=== PATIENT | female | born 1935 | race African-American/Black ===

== ENCOUNTER 2017-05-17 12:00 | Inpatient (IN) | payer OTHER ==
--- NOTE | 2017-05-17 12:07 | PDOC ---
Attending Attestation - HPI HPI: 05/17/17 13:36 The patient is an 82-year-old female, living alone, with a significant past medical history of HTN, hypercholesterolemia, MD (2006), cancer (left breast, 2005), who presents to the ED via EMS for shortness of breath today. As per EMS , the patient was found laid out on her kitchen table, struggling to breath, and grunting. She was noted to be tachypneic, wheezing, and hypertensive at 180/ 90. The patient was given combivent, placed on Bipap, and given 10 of IV dex. On exam, the patient is complaining of increased urination and suprapubic pain. She also reports having a cough productive of phlegm. The patient has been sleeping on more pillows than usual (2) and has noted some right ankle swelling. The patient denies any fever, chills, nausea, vomiting, diarrhea, or abdominal pain. Allergies: NKDA Social History: Current everyday smoker Surgical History: Cholecystectomy PCP: Dr. Osmel Smith - Physicial Exam PE: 05/17/17 13:37 GENERAL: Awake, alert, and fully oriented, in no acute distress HEAD: No signs of trauma EYES: PERRLA, EOMI, sclera anicteric, conjunctiva clear ENT: Auricles normal inspection, hearing grossly normal, nares patent, oropharynx clear without exudates. Moist mucosa NECK: Normal ROM, supple, no lymphadenopathy, JVD, or masses LUNGS: Breath sounds equal, clear to auscultation bilaterally. No wheezes, and no crackles HEART: Regular rate and rhythm, normal S1 and S2, no murmurs, rubs or gallops ABDOMEN: Soft, nontender, normoactive bowel sounds. No guarding, no rebound. No masses EXTREMITIES: Normal range of motion, no edema. No clubbing or cyanosis. No cords, erythema, or tenderness - Medical Decision Making 05/17/17 13:40 Dr. Ortega was paged and notified via phone service. Dr. Osmel Smith was paged at 13:41, awaiting call back. 05/17/17 13:55 Chest X-Ray was reviewed by Dr. Verma and over-read by Radiology. Impression: Since the prior study of study of 01/06/2014, there are skin fold artifacts on the right, prominent mediastinum and some increased markings in the right perihilar area, right base and left lower lung field.. Follow-up recommended. 05/17/17 14:00 Dr. Osmel Smith called back, but Dr. Verma was busy with another patient, so he agreed to call back. 05/17/17 14:45 Dr. Osmel Smith was paged a second time to discuss the case. <Samia Redman - Last Filed: 05/17/17 14:46> - Resident Resident Name: Ruy Payton - ED Attending Attestation I have performed the following: I have examined & evaluated the patient, The case was reviewed & discussed with the resident, I agree w/resident's findings & plan, Exceptions are as noted - Critical Care Time Total Critical Care Time: 30 Critical Care Statement: The care of this patient involved high complexity decision making to prevent further life threatening deterioration of the patient 's condition and/or to evaluate & treat vital organ system(s) failure or risk of failure. - Medical Decision Making 05/17/17 12:06 I, Dr. Kenisha Verma, DO, attest that this document has been prepared under my direction and personally reviewed by me in its entirety. I further attest, that it accurately reflects all work, treatment, procedures and medical decision -making performed by me. 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 Smith - accepts pt to service 05/17/17 15:[address] Ortega - will see patient in consult <Kenisha Verma - Last Filed: 05/17/17 15:22> Discharge Disposition <Samia Redman - Last Filed: 05/17/17 14:46> - Discharge Dispostion Last Admission D/C Date: 04/02/13 Admit: Yes <Kenisha Verma - Last Filed: 05/17/17 15:22> - Diagnosis Hypercapnic respiratory failure - Discharge Dispostion Condition at time of disposition: Fair Heart Score/ECG Review - ECG Intrepretation Comment:: 05/17/17 12:37 sinus at 62, nl axis, nl interval, poor r wave progression, q waves anteriorly that are age indeterminate, t wave inversions v6, I, avl <Kenisha Verma - Last Filed: 05/17/17 15:22>
[2017-05-17] MEDS ORDERED: ALBUTEROL SO4 2.5/IPRATROPIUM 0.5 INH SOL 3 ML VIAL.NEB. NEB ONE ×3 (12:24→13:42)
[2017-05-17] MEDS ORDERED: DEXAMETHASONE SOD PHOSPHATE 10 MG/1 ML VIAL ONE (12:25)
--- NOTE | 2017-05-17 12:25 | PDOC ---
History of Present Illness - General Stated Complaint: DIFFICULTY BREATHING Time Seen by Provider: 05/17/17 12:05 - History of Present Illness Initial Comments: 05/17/17 12:12 82 yo F with h/o HTN, PVD s/p left leg amputation BTK, COPD, BIBA with SOB. Per EMS pt. hypoxic on RA 83%, on BIPAP, and received Combivent x 2, and Dexmathesone 10 mg. Per pt. she developed non productive cough yesterday and reports SOB, Luna, and wheezing this AM with home duoneb use. Denies N/V, F/C, CP , hemoptysis, palpitations, orthopnea, abdominal pain, diarrhea, constipation, urinary complaints, lightheadedness, weakness, sensory changes. Tobacco use 40 + years. Denies h/o CHF, AR, stent placement, CABG. Past History - Past Medical History Allergies/Adverse Reactions: Allergies Allergy/AdvReac Type Severity Reaction Status Date / Time No Known Drug Allergies Allergy Verified 06/11/14 19:48 Home Medications: Ambulatory Orders Amlodipine Besylate [Norvasc -] 10 mg PO DAILY 05/17/17 Aspirin [Ecotrin] 81 mg PO DAILY 05/17/17 Atorvastatin Ca [Lipitor] 10 mg PO HS 05/17/17 Bupropion HCl [Wellbutrin Xl -] 150 mg PO DAILY 05/17/17 Carvedilol [Coreg] 6.25 mg PO DAILY 05/17/17 Clopidogrel Bisulfate [Plavix] 75 mg PO DAILY 05/17/17 Gabapentin [Neurontin] 400 mg PO TID 05/17/17 Isosorbide Mononitrate [Imdur] 60 mg PO DAILY 05/17/17 Oxycodone HCl/Acetaminophen [Percocet 5-325 mg Tablet] 1 tab PO Q6H PRN Pantoprazole Sodium [Protonix] 40 mg PO DAILY 05/17/17 Anemia: No Asthma: No Cancer: Yes (2006 BREAST LEFT) Cardiac Disorders: Yes (AR IN 2005) CVA: No COPD: No CHF: No Dementia: No Diabetes: No GI Disorders: Yes (GALL STONES REMOVED) Disorders: No HTN: Yes Hypercholesterolemia: Yes Liver Disease: No Seizures: No Thyroid Disease: No - Surgical History Abdominal Surgery: Yes Appendectomy: No Cardiac Surgery: No Cholecystectomy: Yes Lung Surgery: No Neurologic Surgery: No Orthopedic Surgery: No - Suicide/Smoking/Psychosocial Hx Smoking History: Never smoked Have you smoked in the past 12 months: No Hx Alcohol Use: No Drug/Substance Use Hx: No Substance Use Type: None Hx Substance Use Treatment: No Review of Systems - Review of Systems Comments:: 05/17/17 12:37 GENERAL/CONSTITUTIONAL: No fever or chills. No weakness. HEAD, EYES, EARS, NOSE AND THROAT: No change in vision. No ear pain or discharge. No sore throat. CARDIOVASCULAR: No chest pain or shortness of breath RESPIRATORY: + SOB, cough, and wheezing. No hemoptysis. GASTROINTESTINAL: No nausea, vomiting, diarrhea or constipation. GENITOURINARY: No dysuria, frequency, or change in urination. MUSCULOSKELETAL: No joint or muscle swelling or pain. No neck or back pain. SKIN: No rash NEUROLOGIC: No headache, vertigo, loss of consciousness, or change in strength/ sensation. ENDOCRINE: No increased thirst. No abnormal weight change HEMATOLOGIC/LYMPHATIC: No anemia, easy bleeding, or history of blood clots. ALLERGIC/IMMUNOLOGIC: No hives or skin allergy. *Physical Exam - Physical Exam Comments: 05/17/17 12:38 GENERAL: Awake, alert, and fully oriented, in no acute distress HEAD: No signs of trauma, normocephalic, atraumatic EYES: PERRLA, EOMI, sclera anicteric, conjunctiva clear ENT: Hearing grossly normal, nares patent, oropharynx clear without exudates. Moist mucosa NECK: Normal ROM, supple, no lymphadenopathy, JVD, or masses LUNGS: Diminished breath sounds. No distress, speaks full sentences. Absent rhonci and rales. HEART: Regular rate and rhythm, normal S1 and S2, no murmurs, rubs or gallops, peripheral pulses normal and equal bilaterally. EXTREMITIES : LLE BTK amputation. Normal inspection, Normal range of motion, no edema. No clubbing or cyanosis. SKIN: Warm, Dry, normal turgor, no rashes or lesions noted ED Treatment Course - LABORATORY CBC & Chemistry Diagram: 05/17/17 12:30 05/17/17 12:30 - RADIOLOGY Radiology Studies Ordered: Category Date Time Status CXRPORT [CHEST X-RAY PORTABLE*] [RAD] Stat Radiology 05/17/17 12:07 Ordered Medical Decision Making - Medical Decision Making 05/17/17 12:40 82 yo F with h/o HTN, PVD s/p left leg amputation BTK, COPD, BIBA with SOB, hypoxic on RA 83%, on BIPAP, and received Combivent x 2, and Dexmathesone 10 mg. Endorses non productive cough yesterday and reports SOB, Luna, and wheezing this AM with home duoneb use. Denies N/V, F/C, CP, hemoptysis, palpitations, orthopnea, abdominal pain, diarrhea, constipation, urinary complaints, lightheadedness, weakness, sensory changes. Physical exam with diminshed BL breath sounds. 100 % O2 Bipap. Differential includes COPD exacerbation vs. PNA. Although pt. with no clinical s/s of fluid overload/congestion, or heart failure , will consider CHF exacerbation. ACS/AR r/o. ED Course: CBC, CMP, Cardiac Pr, Lactic Acid, ABG, BNP, Mg, Lactic acid UA Urine Cx. Blood Cx. 05/17/17 12:44 EKG: NSR with absent [place], STD. Normal interval duration and axis. 05/17/17 13:28 Trop: Neg BNP: [id number] 05/17/17 13:30 CBC: Unremarkable Lactic acid: Neg Pt. admitted to ICU 05/17/17 15:22 Dr. Osmel Smith agrees to admission to ICU. 05/17/17 15:23 Dr. Vazquez consulted. *DC/Admit/Observation/Transfer Diagnosis at time of Disposition: Hypercapnic respiratory failure - Discharge Dispostion Condition at time of disposition: Fair - Referrals - Patient Instructions - Post Discharge Activity
[2017-05-17 12:53] LABS: INR 1.03 (0.82-1.09); PROTHROMBIN TIME (PATIENT) 11.6 SEC (9.98-11.88)
[2017-05-17 13:09] LABS: ALBUMIN 3.7 g/dl (3.4-5.0); ANION GAP 5 (8-16); BILIRUBIN,TOTAL 0.2 mg/dL (0.2-1.0); BLOOD UREA NITROGEN 21 mg/dL (7-18); CALCIUM 9.5 mg/dL (8.5-10.1); CHLORIDE 103 mmol/L (98-107); CO2 29 mmol/L (21-32); CREATININE 0.9 mg/dL (0.55-1.02); GLUCOSE,RANDOM 122 mg/dL (74-106); POTASSIUM 4.4 mmol/L (3.5-5.1); SGOT/AST 28 U/L (15-37); SGPT/ALT 19 U/L (12-78); SODIUM 137 mmol/L (136-145); TOT PROT 8.2 g/dl (6.4-8.2)
[2017-05-17 13:12] LABS: ALK PHOS 122 U/L (45-117); N-TERMINAL BNP 4258.93 pg/ml (5-450)
[2017-05-17 13:18] LABS: BASO % 0.3 % (0-2.0); HEMATOCRIT 39.3 % (32.4-45.2); HEMOGLOBIN 12.9 GM/dL (10.7-15.3); LYMPH % 7.2 % (8-40); MCH 27.1 pg (25.7-33.7); MCHC 32.8 g/dl (32.0-36.0); MEAN CELL VOLUME 82.6 fl (80-96); MEAN PLT VOLUME 10.5 fl (7.5-11.1); MONO % 4.1 % (3.8-10.2); NEUT % 88.4 % (42.8-82.8); PLATELET COUNT 140 K/MM3 (134-434); RBC 4.76 M/mm3 (3.60-5.2); RDW 15.1 % (11.6-15.6); WHITE BLOOD COUNT 8.2 K/mm3 (4.0-10.0)
[2017-05-17 13:21] LABS: CARBOXYHEMOGLOBIN 2.4 gm% (0.5-2.0)
[2017-05-17 13:28] LABS: ARTERIAL BLOOD GAS pH 7.26 (7.35-7.45)
[2017-05-17 13:29] LABS: ALLENS TEST POSITIVE; ARTERIAL BLOOD GAS BASE EXCESS 1.9 meq/l (-2-2); ARTERIAL BLOOD GAS PCO2 69.1 mmHg (35-45)
[2017-05-17] MEDS ORDERED: ALBUTEROL SO4 0.083% IH SOL 2.5 MG/3 ML VIAL.NEB. NEB ONE ×2 (13:31→13:42)
[2017-05-17] MEDS ORDERED: ASPIRIN 81 MG CHEWABLE TABLETS PO ONE (13:31)
[2017-05-17] MEDS ORDERED: SODIUM CHLORIDE 0.9% 1000 ML INFUS.BAG IV ONE (13:31)
[2017-05-17] MEDS ORDERED: AZITHROMYCIN IVPB 500 MG in DEXTROSE 5%-WATER - 250 ML IVPB ONE (13:31)
[2017-05-17] MEDS ORDERED: AZITHROMYCIN IVPB 250 ML IVPB ONE (13:42)
[2017-05-17] MEDS ORDERED: ASPIRIN 81 MG CHEWABLE TABLETS ONE (13:42)
[2017-05-17] MEDS ORDERED: methylPREDNISolone NA SUCC 125 MG/2 ML VIAL IVPUSH ONE (15:21)
[2017-05-17] MEDS ORDERED: methylPREDNISolone NA SUCC 125 MG/2 ML VIAL ONE (16:04)
--- NOTE | 2017-05-17 16:32 | PN ---
Progress Note, Physician Chief Complaint: Cough SOB History of Present Illness: Pt - Objective Vital Signs: Vital Signs Temperature 98.0 F 05/17/17 13:50 Pulse Rate 60 05/17/17 13:50 Respiratory Rate 19 05/17/17 13:50 Blood Pressure 148/82 05/17/17 13:50 O2 Sat by Pulse Oximetry (%) 100 05/17/17 13:50 Labs: CBC, BMP 05/17/17 12:30 05/17/17 12:30 INR, PTT INR 1.03 (0.82-1.09) 05/17/17 12:30
--- NOTE | 2017-05-17 16:41 | HP ---
Admitting History and Physical - Primary Care Physician PCP: Osmel Smith - Admission Chief Complaint: Cough. SOB History of Present Illness: Pt states that for the last 2 days developed dry cough associated with SOB and wheezing. Per ER doctor at presentation in ER her O2 sat in low 80's. Pt also c/o lower abd pain for 1-2 days. Pt w/o fever, chills, diarrhea. History Source: Patient Limitations to Obtaining History: No Limitations - Past Medical History Cardiovascular: Yes: CAD, HTN, Hyperlipdemia Pulmonary: Yes: COPD (probable; pt smoked for very long time) Gastrointestinal: Yes: GERD (Personal Hx of tobacoo use) Heme/Onc: Yes: Cancer (Left Breast), Thrombocytopenia Additional Past Medical History: PVD - Past Surgical History Additional Past Surgical History: Hx/o left Fem- Pop bypass Left AKA - Smoking History Smoking history: Former smoker Have you smoked in the past 12 months: No - Alcohol/Substance Use Hx Alcohol Use: No Home Medications - Allergies Allergies/Adverse Reactions: Allergies Allergy/AdvReac Type Severity Reaction Status Date / Time No Known Drug Allergies Allergy Verified 06/11/14 19:48 - Home Medications Home Medications: Ambulatory Orders Amlodipine Besylate [Norvasc -] 10 mg PO DAILY 05/17/17 Aspirin [Ecotrin] 81 mg PO DAILY 05/17/17 Atorvastatin Ca [Lipitor] 10 mg PO HS 05/17/17 Bupropion HCl [Wellbutrin Xl -] 150 mg PO DAILY 05/17/17 Carvedilol [Coreg] 6.25 mg PO DAILY 05/17/17 Clopidogrel Bisulfate [Plavix] 75 mg PO DAILY 05/17/17 Gabapentin [Neurontin] 400 mg PO TID 05/17/17 Isosorbide Mononitrate [Imdur] 60 mg PO DAILY 05/17/17 Oxycodone HCl/Acetaminophen [Percocet 5-325 mg Tablet] 1 tab PO Q6H PRN Pantoprazole Sodium [Protonix] 40 mg PO DAILY 05/17/17 Review of Systems - Review of Systems Constitutional: denies: Chills, Fever Eyes: denies: Blurred Vision, Double Vision HENT: reports: Other (no nasal discharge). denies: Difficult Swallowing, Ear Discharge, Ear Pain, Epistaxis, Nasal Congestion, Throat Pain Neck: denies: Stiffness, Tenderness Cardiovascular: denies: Chest Pain, Edema, Palpitations Respiratory: reports: Cough, SOB, Wheezing Gastrointestinal: reports: Abdominal Pain. denies: Constipation, Diarrhea, Nausea, Vomiting Genitourinary: denies: Burning, Frequency Musculoskeletal: denies: Back Pain, Extremity Pain Integumentary: denies: Blister, Eczema, Rash Neurological: denies: Change in LOC, Change in Speech, Confusion, Numbness Endocrine: denies: Excessive Sweating, Intolerance to Cold Hematology/Lymphatic: denies: Easily Bruised, Excessive Bleeding Psychiatric: denies: Anxiety, Depression Physical Examination Vital Signs: Vital Signs Temperature 98.0 F 05/17/17 13:50 Pulse Rate 60 05/17/17 13:50 Respiratory Rate 19 05/17/17 13:50 Blood Pressure 148/82 05/17/17 13:50 O2 Sat by Pulse Oximetry (%) 100 05/17/17 13:50 Findings/Remarks: pt on BIPA Constitutional: Yes: Calm, Cachectic. No: Anxious Eyes: Yes: Conjunctiva Clear, EOM Intact. No: Tearing HENT: Yes: Normocephalic. No: Rhinnorhea Neck: Yes: Trachea Midline. No: Lymphadenopathy Cardiovascular: Yes: Regular Rate and Rhythm, S1, S2 Respiratory: Yes: Regular, Rales, Rhonchi (bilat), Wheezes (bilat, inspiratory and expiratory) Gastrointestinal: Yes: Normal Bowel Sounds, Soft. No: Tenderness ...Rectal Exam: Yes: Deferred Renal/: No: CVA Tenderness - Left, CVA Tenderness - Right Breast(s): Yes: Other (deferred) Extremities: Yes: Amputation (left AKA) Edema: No (or the right leg) Integumentary: No: Bruising, Rash Neurological: Yes: Alert, Oriented Labs: CBC, BMP 05/17/17 12:30 05/17/17 12:30 Imaging - Results Chest X-ray: Report Reviewed Problem List - Problems (1) Acute respiratory failure with hypoxia and hypercapnia Code(s): J96.01 - ACUTE RESPIRATORY FAILURE WITH HYPOXIA; J96.02 - ACUTE RESPIRATORY FAILURE WITH HYPERCAPNIA (2) CAD (coronary artery disease) Code(s): I25.10 - ATHSCL HEART DISEASE OF [place] CORONARY ARTERY W/O ANG PCTRS Qualifiers: Coronary Disease-Associated Artery/Lesion type: [place] artery [place] vs. transplanted heart: [place] heart Associated angina: without angina Qualified Code(s): I25.10 - Atherosclerotic heart disease of [place] coronary artery without angina pectoris (3) PVD (peripheral vascular disease) Code(s): I73.9 - PERIPHERAL VASCULAR DISEASE, UNSPECIFIED (4) History of left above knee amputation Code(s): Z89.612 - ACQUIRED ABSENCE OF LEFT LEG ABOVE KNEE Assessment/Plan BIPAP IV steroids Pulmonary consult Serial CE Cardio consult GI Prophylaxis DVT Prophylaxis Nicotine replacemnet therapy UA/ UCX is pending, pt is refusing straight cath. Case was d/w pt's nurse ( at bedside); pt doen't remembers any home medications. I updated the medication list per my office records Admit to Monitor bed, ICU if possible. Time spent for managing pt's care: over 90 minutes
--- NOTE | 2017-05-17 17:01 | CONSULT ---
Consult Consult Specialty:: PULMONARY/CCM Referred by:: Dr. Verma Reason for Consultation:: respiratory failure - History of Present Illness Chief Complaint: shortness of breath History of Present Illness: 82yo female with h/o HTN, hypercholesterolemia, CAD, PAD, h/o breast ca who was admitted with worsening shortness of breath. Pt currently somnolent but arousable on BiPAP, difficult to obtain history at this time but she does report a cough and wheezing. NO chest pain or palpitations. No fevers, chills or sweats. No sick contacts, lives with her son. Does not use oxygen at home but is on inhalers. She is a former long time smoker. Noted to be tachypneic, wheezing and ABG showing acute on chronic respiratory acidosis, placed on BiPAP support. Does not take vaccines. Last CT chest was in 2015 which showed bilateral lung nodules. - History Source History Provided By: Patient, Medical Record Limitations to Obtaining History: Clinical Condition - Past Medical History Cardio/Vascular: Yes: CAD, HTN, Hyperlipdemia Pulmonary: Yes: COPD Gastrointestinal: Yes: GERD (Personal Hx of tobacoo use) - Alcohol/Substance Use Hx Alcohol Use: No - Smoking History Smoking history: Never smoked Have you smoked in the past 12 months: No Home Medications - Allergies Allergies/Adverse Reactions: Allergies Allergy/AdvReac Type Severity Reaction Status Date / Time No Known Drug Allergies Allergy Verified 06/11/14 19:48 - Home Medications Home Medications: Ambulatory Orders Enalapril Maleate [Vasotec -] 20 mg PO BID 06/11/11 Amlodipine 10/Benazepril 20 [Lotrel (Nf)] 1 combo PO DAILY 01/07/13 Carvedilol [Coreg -] 6.25 mg PO BID #0 tablet 04/02/13 Ranitidine [Zantac -] 150 mg PO BID #0 tablet 04/02/13 Simvastatin [Zocor -] 10 mg PO HS #0 tablet 04/02/13 Warfarin Na [Coumadin -] 5 mg PO DAILY@1800 #0 tablet 04/02/13 Review of Systems - Review of Systems Constitutional: reports: Lethargy, Weakness. denies: Chills, Fever Eyes: denies: Recent Change in Vision HENT: denies: Nasal Congestion, Throat Pain Neck: denies: Stiffness, Tenderness Cardiovascular: reports: Shortness of Breath. denies: Chest Pain, Edema, Palpitations Respiratory: reports: Cough, Wheezing. denies: Hemoptysis Gastrointestinal: denies: Abdominal Pain, Nausea, Vomiting Genitourinary: denies: Dysuria, Hematuria Neurological: denies: Dizziness, Headache Physical Exam Vital Signs: Vital Signs Temperature 98.0 F 05/17/17 13:50 Pulse Rate 60 05/17/17 13:50 Respiratory Rate 19 05/17/17 13:50 Blood Pressure 148/82 05/17/17 13:50 O2 Sat by Pulse Oximetry (%) 100 05/17/17 13:50 Constitutional: Yes: Calm (on BiPAP) Eyes: Yes: Conjunctiva Clear, EOM Intact HENT: Yes: Atraumatic, Normocephalic Neck: Yes: Supple, Trachea Midline Cardiovascular: Yes: Regular Rate and Rhythm Respiratory: Yes: Diminished (distant breath sounds), Poor Air Entry Gastrointestinal: Yes: Normal Bowel Sounds, Soft. No: Tenderness Extremities: Yes: Amputation (L AKA) Labs: CBC, BMP 05/17/17 12:30 05/17/17 12:30 Imaging - Results Chest X-ray: Report Reviewed, Image Reviewed (R base infiltrates) Problem List - Problems (1) Acute on chronic respiratory failure with hypoxia and hypercapnia Code(s): J96.21 - ACUTE AND CHRONIC RESPIRATORY FAILURE WITH HYPOXIA; J96.22 - ACUTE AND CHRONIC RESPIRATORY FAILURE WITH HYPERCAPNIA (2) COPD with acute exacerbation Code(s): J44.1 - CHRONIC OBSTRUCTIVE PULMONARY DISEASE W (ACUTE) EXACERBATION (3) CAD (coronary artery disease) Code(s): I25.10 - ATHSCL HEART DISEASE OF [place] CORONARY ARTERY W/O ANG PCTRS (4) PVD (peripheral vascular disease) Code(s): I73.9 - PERIPHERAL VASCULAR DISEASE, UNSPECIFIED Assessment/Plan Acute on Chronic Hypoxic and Hypercapneic Respiratory Failure Acute COPD Exacerbation r/o Pneumonia Lung Nodules CAD PAD s/p L AKA HTN Hypercholesterolemia - IV medrol - inhaled bronchodilators standing and PRN - empiric antibiotics - f/u cultures - CT chest noncontrast when respiratory status improved to f/u nodules - O2 to keep SpO2 >90% - BiPAP - monitor ABG - can monitor in ICU overnight - DVT prophylaxis Thank you for this consult Peter Ortega MD
[2017-05-17] MEDS ORDERED: ALBUTEROL SO4 0.083% IH SOL 2.5 MG/3 ML VIAL.NEB. NEB PRN (17:07)
[2017-05-17] MEDS ORDERED: SODIUM CHLORIDE 1,000 ML IV SCH (17:15)
[2017-05-17] MEDS ORDERED: CEFTRIAXONE 1,000 MG in DEXTROSE 5%-WATER - 50 ML IVPB SCH (17:15)
[2017-05-17] MEDS ORDERED: CEFTRIAXONE 1 GM/50 ML BAG ONE (17:57)
[2017-05-17 20:03] LABS: ARTERIAL BLOOD GAS PCO2 55.6 mmHg (35-45); ARTERIAL BLOOD GAS PO2 94.4 mmHg (68-100); ARTERIAL BLOOD GAS pH 7.31 (7.35-7.45)
[2017-05-17 20:04] LABS: ARTERIAL BLD GAS O2 SATURATION 97.2 % (90-98.9); ARTERIAL BLOOD GAS BASE EXCESS 1.1 meq/l (-2-2)
[2017-05-17 20:05] LABS: ALLENS TEST POSITIVE
[2017-05-17] MEDS: ALBUTEROL SO4 2.5/IPRATROPIUM 0.5 INH SOL 3 ML VIAL.NEB. NEB SCH (20:13)
[2017-05-17] MEDS ORDERED: CARVEDILOL 3.125 MG TABLET (FP) ONE (22:15)
[2017-05-17] MEDS ORDERED: HEPARIN NA (PORCINE) 5,000 UNITS/ML 1ML VIAL ONE (22:16)
[2017-05-17] MEDS ORDERED: methylPREDNISolone NA SUCC 40 MG/1 ML VIAL ONE (22:16)
[2017-05-17] MEDS: CARVEDILOL 6.25 MG TABLET (FP) PO SCH (22:31)
[2017-05-17] MEDS: HEPARIN NA (PORCINE) 5,000 UNITS/ML 1ML VIAL SQ SCH (22:32)
[2017-05-17] MEDS: methylPREDNISolone NA SUCC 40 MG/1 ML VIAL IVPB SCH (22:32)
[2017-05-17] MEDS: GABAPENTIN 400 MG CAPSULE (FP) PO SCH (23:10)
[2017-05-17] MEDS: ATORVASTATIN CA 10 MG TABLET (FP) PO SCH (23:10)
[2017-05-18] MEDS ORDERED: methylPREDNISolone NA SUCC 40 MG/1 ML VIAL ONE ×2 (03:19→21:12)
[2017-05-18] MEDS: methylPREDNISolone NA SUCC 40 MG/1 ML VIAL IVPB SCH ×4 (03:20→21:51)
[2017-05-18] MEDS: GABAPENTIN 400 MG CAPSULE (FP) PO SCH ×3 (06:27→22:46)
--- NOTE | 2017-05-18 07:22 | PN ---
Progress Note, Physician Chief Complaint: awake alert feels a little better, no CP less cough less SOB seen in ER awaiting ICU bed; on O2 and prn BIPAP meds tests consults reviewed and d/w pt - Current Medication List Current Medications: Active Medications Albuterol Sulfate (Ventolin 0.083% Nebulizer Soln -) 1 amp NEB Q4H PRN PRN Reason: SHORT OF BREATH/WHEEZING Albuterol/Ipratropium (Duoneb -) 1 amp NEB RQID [facility] Last Admin: 05/17/17 20:13 Dose: 1 amp Amlodipine Besylate (Norvasc -) 10 mg PO DAILY [facility] Aspirin (Ecotrin -) 81 mg PO DAILY [facility] Atorvastatin Calcium (Lipitor -) 10 mg PO HS [facility] Last Admin: 05/17/17 23:10 Dose: 10 mg Bupropion HCl (Wellbutrin Xl -) 150 mg PO DAILY [facility] Carvedilol (Coreg -) 6.25 mg PO BID [facility] Last Admin: 05/17/17 22:31 Dose: 6.25 mg Clopidogrel Bisulfate (Plavix -) 75 mg PO DAILY [facility] Gabapentin (Neurontin -) 400 mg PO TID [facility] Last Admin: 05/18/17 06:27 Dose: Not Given Heparin Sodium (Porcine) (Heparin -) 5,000 unit SQ BID [facility] Last Admin: 05/17/17 22:32 Dose: 5,000 unit Sodium Chloride (Normal Saline -) 1,000 mls @ 50 mls/hr IV ASDIR [facility] Stop: 05/18/17 17:04 Last Admin: 05/17/17 17:24 Dose: 50 mls/hr Azithromycin 500 mg/ Dextrose 250 mls @ 250 mls/hr IVPB DAILY [facility] Ceftriaxone Sodium 1,000 mg/ (Dextrose) 50 mls @ 100 mls/hr IVPB DAILY [facility] Isosorbide Mononitrate (Imdur -) 60 mg PO DAILY [facility] Methylprednisolone Sodium Succinate (Solu-Medrol -) 40 mg IVPB Q6H-IV [facility] Last Admin: 05/18/17 03:20 Dose: 40 mg Oxycodone/Acetaminophen (Percocet 5/325 -) 1 combo PO Q6H PRN PRN Reason: PAIN LEVEL 4 - 6 Last Admin: 05/18/17 00:28 Dose: 1 combo Pantoprazole Sodium (Protonix -) 40 mg PO DAILY [facility] - Objective Vital Signs: Vital Signs Temperature 99.1 F 05/18/17 00:25 Pulse Rate 58 L 05/18/17 03:18 Respiratory Rate 18 05/18/17 03:18 Blood Pressure 168/84 05/18/17 03:18 O2 Sat by Pulse Oximetry (%) 98 05/18/17 05:14 Constitutional: Yes: No Distress, Calm Eyes: Yes: Conjunctiva Clear HENT: Yes: Atraumatic Neck: Yes: Supple Cardiovascular: Yes: Regular Rate and Rhythm Respiratory: Yes: Diminished Gastrointestinal: Yes: Soft. No: Distention, Tenderness Genitourinary: No: CVA Tenderness - Left, CVA Tenderness - Right, Hematuria Musculoskeletal: No: Joint Stiffness, Joint Swelling Extremities: Yes: Other (L BKA). No: Cold, Cool Integumentary: No: Rash, Venous Stasis Changes Neurological: Yes: WNL, Alert, Oriented ...Motor Strength: WNL Psychiatric: Yes: WNL, Alert, Oriented. No: Agitated, Suicidal Ideation Labs: INR, PTT INR 1.03 (0.82-1.09) 05/17/17 12:30 - ....Imaging Other: Report Reviewed Assessment/Plan 82 yo F with h/o HTN, PVD s/p left leg amputation BK, COPD, BIBA with SOB, hypoxic on BIPAP, admitted with acute on chronic COPD exacerbation and possible PNA. h/o ASHD arrythmia, r/o CHF exacerbation. admit to ICU/ monitored unit cardio, pulm eval IV ATB nebs, Combivent x 2, and iv steroids. continue previous meds BIpap prn; O2 continuous falls decubs DVT pfx d./w pt and staff prgnosis guarded t time 40 min
[2017-05-18 07:32] LABS: BASO % 0.1 % (0-2.0); HEMATOCRIT 40.3 % (32.4-45.2); HEMOGLOBIN 12.8 GM/dL (10.7-15.3); LYMPH % 14.1 % (8-40); MCH 26.5 pg (25.7-33.7); MCHC 31.8 g/dl (32.0-36.0); MEAN CELL VOLUME 83.4 fl (80-96); MEAN PLT VOLUME 10.5 fl (7.5-11.1); MONO % 4.4 % (3.8-10.2); NEUT % 81.4 % (42.8-82.8); PLATELET COUNT 130 K/MM3 (134-434); RBC 4.83 M/mm3 (3.60-5.2); RDW 15.1 % (11.6-15.6); WHITE BLOOD COUNT 7.6 K/mm3 (4.0-10.0)
[2017-05-18 07:52] LABS: ALBUMIN 3.3 g/dl (3.4-5.0); ANION GAP 7 (8-16); BLOOD UREA NITROGEN 28 mg/dL (7-18); CALCIUM 9.5 mg/dL (8.5-10.1); CHLORIDE 105 mmol/L (98-107); CO2 27 mmol/L (21-32); GLUCOSE,RANDOM 109 mg/dL (74-106); MAGNESIUM 2.1 mg/dL (1.8-2.4); POTASSIUM 4.6 mmol/L (3.5-5.1); SODIUM 139 mmol/L (136-145)
[2017-05-18 07:57] LABS: ALK PHOS 167 U/L (45-117); BILIRUBIN,TOTAL 0.1 mg/dL (0.2-1.0); CREATININE 0.8 mg/dL (0.55-1.02); PHOSPHOROUS 3.6 mg/dL (2.5-4.9); SGOT/AST 61 U/L (15-37); SGPT/ALT 48 U/L (12-78); TOT PROT 7.3 g/dl (6.4-8.2)
[2017-05-18] MEDS: ALBUTEROL SO4 2.5/IPRATROPIUM 0.5 INH SOL 3 ML VIAL.NEB. NEB SCH ×4 (09:43→21:00)
[2017-05-18] MEDS: AZITHROMYCIN IVPB 500 MG in DEXTROSE 5%-WATER - 250 ML IVPB SCH (10:03)
[2017-05-18] MEDS: CARVEDILOL 6.25 MG TABLET (FP) PO SCH ×2 (10:10→22:46)
[2017-05-18] MEDS: HEPARIN NA (PORCINE) 5,000 UNITS/ML 1ML VIAL SQ SCH ×2 (10:10→22:46)
[2017-05-18] MEDS: ASPIRIN COATED 81 MG TABLET.EC PO SCH (10:10)
[2017-05-18] MEDS: CLOPIDOGREL BISULFATE 75 MG TABLET (FP) PO SCH (10:11)
[2017-05-18] MEDS: amLODIPine BESYLATE 10 MG TABLET (FP) PO SCH (10:11)
[2017-05-18] MEDS: ISOSORBIDE MONONITRATE 60 MG TAB.SR.24H (FP) PO SCH (10:12)
[2017-05-18] MEDS: PANTOPRAZOLE 40 MG TABLET (FP) PO SCH (10:12)
[2017-05-18] MEDS ORDERED: CEFTRIAXONE 1 GM/50 ML BAG ONE (11:09)
[2017-05-18] MEDS: CEFTRIAXONE 1,000 MG in DEXTROSE 5%-WATER - 50 ML IVPB SCH (11:13)
[2017-05-18] MEDS ORDERED: ACETAMINOPHEN 500 MG TABLET (FP) PO ONE (13:07)
--- NOTE | 2017-05-18 13:47 | PN ---
Progress Note (short form) - Note Progress Note: Chief Complaint: Events noted, notes reviewed, persistent dyspnea, cough productive of clear sputum History of Present Illness: Seen and examined on telemetry. Full consult dictated Medications: Current Medications Albuterol Sulfate (Ventolin 0.083% Nebulizer Soln -) 1 amp NEB Q4H PRN PRN Reason: SHORT OF BREATH/WHEEZING Albuterol/Ipratropium (Duoneb -) 1 amp NEB RQID [facility] Last Admin: 05/18/17 09:43 Dose: 1 amp Amlodipine Besylate (Norvasc -) 10 mg PO DAILY [facility] Last Admin: 05/18/17 10:11 Dose: 10 mg Aspirin (Ecotrin -) 81 mg PO DAILY [facility] Last Admin: 05/18/17 10:10 Dose: 81 mg Atorvastatin Calcium (Lipitor -) 10 mg PO HS [facility] Last Admin: 05/17/17 23:10 Dose: 10 mg Bupropion HCl (Wellbutrin Xl -) 150 mg PO DAILY [facility] Last Admin: 05/18/17 10:12 Dose: 150 mg Carvedilol (Coreg -) 6.25 mg PO BID [facility] Last Admin: 05/18/17 10:10 Dose: 6.25 mg Clopidogrel Bisulfate (Plavix -) 75 mg PO DAILY [facility] Last Admin: 05/18/17 10:11 Dose: 75 mg Gabapentin (Neurontin -) 400 mg PO TID [facility] Last Admin: 05/18/17 06:27 Dose: Not Given Heparin Sodium (Porcine) (Heparin -) 5,000 unit SQ BID [facility] Last Admin: 05/18/17 10:10 Dose: 5,000 unit Sodium Chloride (Normal Saline -) 1,000 mls @ 50 mls/hr IV ASDIR [facility] Stop: 05/18/17 17:04 Last Admin: 05/17/17 17:24 Dose: 50 mls/hr Azithromycin 500 mg/ Dextrose 250 mls @ 250 mls/hr IVPB DAILY [facility] Last Admin: 05/18/17 10:03 Dose: 250 mls/hr Ceftriaxone Sodium 1,000 mg/ (Dextrose) 50 mls @ 100 mls/hr IVPB DAILY [facility] Last Admin: 05/18/17 11:13 Dose: 100 mls/hr Isosorbide Mononitrate (Imdur -) 60 mg PO DAILY [facility] Last Admin: 05/18/17 10:12 Dose: 60 mg Methylprednisolone Sodium Succinate (Solu-Medrol -) 40 mg IVPB Q6H-IV [facility] Last Admin: 05/18/17 09:43 Dose: 40 mg Oxycodone/Acetaminophen (Percocet 5/325 -) 1 combo PO Q6H PRN PRN Reason: PAIN LEVEL 4 - 6 Last Admin: 05/18/17 00:28 Dose: 1 combo Pantoprazole Sodium (Protonix -) 40 mg PO DAILY [facility] Last Admin: 05/18/17 10:12 Dose: 40 mg Review of Systems - Review of Systems Constitutional: denies: Chills, Fever Cardiovascular: As noted above Respiratory: reports: Cough and sputum Production Gastrointestinal: denies: Nausea, Vomiting, Diarrhea, Constipation or Abdominal Pain Musculoskeletal: denies: Joint Pain Neurological: denies: Dizziness or Headaches Vital Signs: Last Vital Signs Temp Pulse Resp BP Pulse Ox 98.6 F 84 22 167/115 100 05/18/17 08:00 05/18/17 08:00 05/18/17 08:00 05/18/17 08:00 05/18/17 10:16 Intake & Output 05/15/17 05/16/17 05/17/17 05/18/17 23:59 23:59 23:59 23:59 Weight 120 lb Neck: Supple negative JVD no bruit appreciated Respiratory: Bilateral Scattered Rhonchi Cardiovascular: S1-S2 Regular Rate and Rhythm Gastrointestinal: soft benign Normal Bowel Sounds Ext: No edema Left AKA Labs: CBC, BMP 05/18/17 06:25 05/18/17 06:25 Hepatic Panel Total Bilirubin 0.1 mg/dL (0.2-1.0) L D 05/18/17 06:25 AST 61 U/L (15-37) H 05/18/17 06:25 ALT 48 U/L (12-78) 05/18/17 06:25 Alkaline Phosphatase 167 U/L (45-117) H 05/18/17 06:25 Albumin 3.3 g/dl (3.4-5.0) L 05/18/17 06:25 INR, PTT INR 1.03 (0.82-1.09) 05/17/17 12:30 Assessment/Plan ASSESSMENT: 1. Clinical presentation is consistent with acute exacerbation of chronic obstructive airway disease 2. CAD angina pectoris 3. Diastolic LV dysfunction with chronic class I-II NYHA classification LV failure, compensated/euvolemic 4. PAD post left AKA 5. Hypertension 6. Hypercholesterolemia PLAN: 1. Continue Coreg 2. Continue Imdur 3. Continue Norvasc 4. Recommend the addition of ACEI or ARBS unless it is contraindicated 5. Continue Lipitor 6. Continue ASA and Plavix 7. Antibiotics, steroids and bronchodilators as per the primary team Ginger Lucia MD
[2017-05-18] MEDS ORDERED: ACETAMINOPHEN 325 MG TABLET (FP) ONE (13:50)
--- NOTE | 2017-05-18 13:50 | PN ---
Progress Note (short form) - Note Progress Note: PULMONARY/CCM Pt seen and examined in the ER. Off BiPAP. Mental status much improved. Still some shortness of breath and nonproductive cough. c/o stump pain. Last Vital Signs Temp Pulse Resp BP Pulse Ox 98.6 F 84 22 167/115 100 05/18/17 08:00 05/18/17 08:00 05/18/17 08:00 05/18/17 08:00 05/18/17 10:16 Intake & Output 05/15/17 05/16/17 05/17/17 05/18/17 23:59 23:59 23:59 23:59 Weight 54.431 kg Gen: more alert, awake Heart: RRR Lung: distant breath sounds, no wheezes Abd: soft, nontender Ext: no edema, L AKA CBC, BMP 05/18/17 06:25 05/18/17 06:25 Active Medications Albuterol Sulfate (Ventolin 0.083% Nebulizer Soln -) 1 amp NEB Q4H PRN PRN Reason: SHORT OF BREATH/WHEEZING Albuterol/Ipratropium (Duoneb -) 1 amp NEB RQID [facility] Last Admin: 05/18/17 09:43 Dose: 1 amp Amlodipine Besylate (Norvasc -) 10 mg PO DAILY [facility] Last Admin: 05/18/17 10:11 Dose: 10 mg Aspirin (Ecotrin -) 81 mg PO DAILY [facility] Last Admin: 05/18/17 10:10 Dose: 81 mg Atorvastatin Calcium (Lipitor -) 10 mg PO HS [facility] Last Admin: 05/17/17 23:10 Dose: 10 mg Bupropion HCl (Wellbutrin Xl -) 150 mg PO DAILY [facility] Last Admin: 05/18/17 10:12 Dose: 150 mg Carvedilol (Coreg -) 6.25 mg PO BID [facility] Last Admin: 05/18/17 10:10 Dose: 6.25 mg Clopidogrel Bisulfate (Plavix -) 75 mg PO DAILY [facility] Last Admin: 05/18/17 10:11 Dose: 75 mg Gabapentin (Neurontin -) 400 mg PO TID [facility] Last Admin: 05/18/17 06:27 Dose: Not Given Heparin Sodium (Porcine) (Heparin -) 5,000 unit SQ BID [facility] Last Admin: 05/18/17 10:10 Dose: 5,000 unit Sodium Chloride (Normal Saline -) 1,000 mls @ 50 mls/hr IV ASDIR [facility] Stop: 05/18/17 17:04 Last Admin: 05/17/17 17:24 Dose: 50 mls/hr Azithromycin 500 mg/ Dextrose 250 mls @ 250 mls/hr IVPB DAILY [facility] Last Admin: 05/18/17 10:03 Dose: 250 mls/hr Ceftriaxone Sodium 1,000 mg/ (Dextrose) 50 mls @ 100 mls/hr IVPB DAILY [facility] Last Admin: 05/18/17 11:13 Dose: 100 mls/hr Isosorbide Mononitrate (Imdur -) 60 mg PO DAILY [facility] Last Admin: 05/18/17 10:12 Dose: 60 mg Methylprednisolone Sodium Succinate (Solu-Medrol -) 40 mg IVPB Q6H-IV [facility] Last Admin: 05/18/17 09:43 Dose: 40 mg Oxycodone/Acetaminophen (Percocet 5/325 -) 1 combo PO Q6H PRN PRN Reason: PAIN LEVEL 4 - 6 Last Admin: 05/18/17 00:28 Dose: 1 combo Pantoprazole Sodium (Protonix -) 40 mg PO DAILY [facility] Last Admin: 05/18/17 10:12 Dose: 40 mg A/P Acute on Chronic Hypoxic and Hypercapneic Respiratory Failure Acute COPD Exacerbation r/o Pneumonia Lung Nodules CAD PAD s/p L AKA HTN Hypercholesterolemia - continue medrol at current dose - inhaled bronchodilators standing and PRN - empiric antibiotics - f/u cultures - CT chest noncontrast when respiratory status improved to f/u nodules - O2 to keep SpO2 >90% - BiPAP as needed - monitor ABG - DVT prophylaxis - pt clinically improving, can downgrade to telemetry monitoring Problem List - Problems (1) Acute on chronic respiratory failure with hypoxia and hypercapnia Code(s): J96.21 - ACUTE AND CHRONIC RESPIRATORY FAILURE WITH HYPOXIA; J96.22 - ACUTE AND CHRONIC RESPIRATORY FAILURE WITH HYPERCAPNIA (2) COPD with acute exacerbation Code(s): J44.1 - CHRONIC OBSTRUCTIVE PULMONARY DISEASE W (ACUTE) EXACERBATION (3) CAD (coronary artery disease) Code(s): I25.10 - ATHSCL HEART DISEASE OF [place] CORONARY ARTERY W/O ANG PCTRS (4) PVD (peripheral vascular disease) Code(s): I73.9 - PERIPHERAL VASCULAR DISEASE, UNSPECIFIED
[2017-05-18 15:02] VITALS: BMI 20.1
--- NOTE | 2017-05-18 15:22 | CONS ---
DATE OF CONSULTATION: 05/18/2017 CONSULTATION REQUESTED BY: Osmel Smith MD CHIEF COMPLAINT: Dyspnea, cardiovascular evaluation. An 82-year-old female, of descent, with known history of coronary artery disease, angina pectoris, diastolic left ventricular dysfunction, with chronic class I [place] Heart [employer] classification left ventricular failure, hypertensive cardiovascular disease, hypercholesterolemia, chronic obstructive pulmonary disease, gastroesophageal reflux disease, who presented to [facility] with increasing dyspnea which has been noted over the last several days, with associated cough and sputum production. Patient, in addition, reported expiratory wheezing. Patient denied any orthopnea or paroxysmal nocturnal dyspnea. Patient denied any peripheral edema. Patient denied any chest discomfort. Patient denied any palpitation, dizziness, lightheadedness, or syncope. Upon evaluation in the emergency room, patient was noted to have evidence of chronic obstructive pulmonary disease exacerbation. PAST MEDICAL HISTORY: Coronary artery disease, angina pectoris, diastolic left ventricular dysfunction with chronic class 1 [place] [employer] classification left ventricular failure, hypertensive cardiovascular disease, hypercholesterolemia, chronic obstructive pulmonary disease, gastroesophageal reflux disease, thrombocytopenia. 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 SOCIAL HISTORY: Prior smoker. FAMILY HISTORY: Positive coronary artery disease. ALLERGIES: None reported. Medical therapy currently includes Ventolin nebulizer, DuoNeb nebulizer, Norvasc 10 mg once a day, Ecotrin 81 mg once a day, Lipitor 10 mg once a day, Wellbutrin 150 mg once a day, Coreg 6.25 mg twice a day, Plavix 75 mg once a day, gabapentin 400 mg 3 times a day, subcutaneous heparin 5000 units twice a day, Zithromax 500 mg once a day, ceftriaxone 1000 mg once a day, Imdur 30 mg once a day, Solu-Medrol 40 mg every 6 hours, Percocet 5/325 mg tablet, 1 tablet q.6 hours as needed, Protonix 40 mg once a day. REVIEW OF SYSTEMS: Head and Neck: Denies headache, photophobia, blurring of vision. Respiratory: As noted above. Cardiovascular: As noted above. Gastrointestinal: Reports nausea. Denies any vomiting, denies abdominal discomfort. Genitourinary: No symptoms reported. PHYSICAL EXAMINATION: Vital Signs: Blood pressure is 167/115 mmHg. Pulse rate is 84 beats per minute. Temperature 98.6. Head and Neck: Pupils equal, react to light and accommodation. Extraocular muscles are intact. Anicteric sclerae. Negative JVD. No bruit appreciated. Chest: Bilateral scattered rhonchi. Cardiovascular: S1, S2 regular. Abdomen: Soft, benign. Normoactive bowel sound. Extremities: Left above-knee amputation. No edema to right lower extremity. CBC reveals a white cell count 7.6, hemoglobin 12.8, platelet count 130. Basic metabolic profile revealed sodium 139, potassium 4.6, BUN 28, creatinine 0.8, glucose 109. Chest x-ray report was noted. ASSESSMENT: 1. Clinical presentation is consistent with acute exacerbation of chronic obstructive pulmonary disease. 2. Coronary artery disease, angina pectoris. 3. Diastolic left ventricular dysfunction with chronic class 1 to 2 [place] Heart Association classification left ventricular failure, compensated/euvolemic. 4. Peripheral vascular disease. PLAN: 1. Continuation of Coreg therapy. 2. Continuation of Imdur therapy. 3. Continuation of Norvasc therapy. 4. Recommend the addition of J CARLOS inhibitor, angiotensin-receptor maxx therapy unless it is contraindicated. 5. Continuation of Lipitor therapy. 6. Continuation of aspirin and Plavix therapy. 7. Antibiotics, steroids, and bronchodilators, as per the primary team. Thank you for the kind referral. KRISHNA BUENROSTRO M.D. ELAINE/[id number]
--- NOTE | 2017-05-18 16:16 | EKG ---
Test Reason : Blood Pressure : / mmHG Vent. Rate : 062 BPM Atrial Rate : 062 BPM P-R Int : 142 ms QRS Dur : 090 ms QT Int : 454 ms P-R-T Axes : 076 050 098 degrees QTc Int : 460 ms NORMAL SINUS RHYTHM CANNOT RULE OUT ANTERIOR INFARCT , AGE UNDETERMINED NONSPECIFIC ST ABNORMALITY ABNORMAL ECG Confirmed by MD ENRIQUE, YAZMIN ([id number]) on 05/18/2017 4:16:17 PM Referred By: Confirmed By:YAZMIN NUNEZ MD
[2017-05-18] MEDS ORDERED: ALBUTEROL SO4 2.5/IPRATROPIUM 0.5 INH SOL 3 ML VIAL.NEB. NEB ONE (21:11)
[2017-05-18] MEDS: ATORVASTATIN CA 10 MG TABLET (FP) PO SCH (22:46)
[2017-05-18] MEDS ORDERED: HEPARIN NA (PORCINE) 5,000 UNITS/ML 1ML VIAL ONE (22:51)
[2017-05-19] MEDS: methylPREDNISolone NA SUCC 40 MG/1 ML VIAL IVPB SCH ×4 (04:00→21:59)
[2017-05-19] MEDS ORDERED: methylPREDNISolone NA SUCC 40 MG/1 ML VIAL ONE ×2 (04:22→09:32)
[2017-05-19 07:15] LABS: BASO % 0.1 % (0-2.0); HEMATOCRIT 35.2 % (32.4-45.2); HEMOGLOBIN 11.5 GM/dL (10.7-15.3); LYMPH % 10.7 % (8-40); MCHC 32.8 g/dl (32.0-36.0); MEAN CELL VOLUME 82.2 fl (80-96); MEAN PLT VOLUME 10.7 fl (7.5-11.1); MONO % 4.2 % (3.8-10.2); PLATELET COUNT 123 K/MM3 (134-434); RBC 4.28 M/mm3 (3.60-5.2); RDW 14.9 % (11.6-15.6); WHITE BLOOD COUNT 10.5 K/mm3 (4.0-10.0)
[2017-05-19] MEDS: GABAPENTIN 400 MG CAPSULE (FP) PO SCH ×3 (07:18→22:23)
[2017-05-19 07:57] LABS: ANION GAP 5 (8-16); BLOOD UREA NITROGEN 40 mg/dL (7-18); CALCIUM 9.1 mg/dL (8.5-10.1); CHLORIDE 103 mmol/L (98-107); CO2 31 mmol/L (21-32); CREATININE 1.1 mg/dL (0.55-1.02); GLUCOSE,RANDOM 98 mg/dL (74-106); SGOT/AST 37 U/L (15-37); SGPT/ALT 35 U/L (12-78); SODIUM 139 mmol/L (136-145)
[2017-05-19 07:58] LABS: ALK PHOS 125 U/L (45-117); TOT PROT 6.5 g/dl (6.4-8.2)
[2017-05-19 08:24] LABS: BILIRUBIN,TOTAL < 0.1 mg/dL (0.2-1.0)
--- NOTE | 2017-05-19 09:12 | PN ---
Progress Note, Physician History of Present Illness: Pt is breathing better, still coughs but better. Pt w/o CP, palpitations, abd pain. Pt refused ABG this AM - Current Medication List Current Medications: Active Medications Albuterol Sulfate (Ventolin 0.083% Nebulizer Soln -) 1 amp NEB Q4H PRN PRN Reason: SHORT OF BREATH/WHEEZING Albuterol/Ipratropium (Duoneb -) 1 amp NEB RQID [facility] Last Admin: 05/18/17 21:00 Dose: 1 amp Amlodipine Besylate (Norvasc -) 10 mg PO DAILY [facility] Last Admin: 05/18/17 10:11 Dose: 10 mg Aspirin (Ecotrin -) 81 mg PO DAILY [facility] Last Admin: 05/18/17 10:10 Dose: 81 mg Atorvastatin Calcium (Lipitor -) 10 mg PO HS [facility] Last Admin: 05/18/17 22:46 Dose: 10 mg Bupropion HCl (Wellbutrin Xl -) 150 mg PO DAILY [facility] Last Admin: 05/18/17 10:12 Dose: 150 mg Carvedilol (Coreg -) 6.25 mg PO BID [facility] Last Admin: 05/18/17 22:46 Dose: 6.25 mg Clopidogrel Bisulfate (Plavix -) 75 mg PO DAILY [facility] Last Admin: 05/18/17 10:11 Dose: 75 mg Gabapentin (Neurontin -) 400 mg PO TID [facility] Last Admin: 05/19/17 07:18 Dose: 400 mg Heparin Sodium (Porcine) (Heparin -) 5,000 unit SQ BID [facility] Last Admin: 05/18/17 22:46 Dose: 5,000 unit Azithromycin 500 mg/ Dextrose 250 mls @ 250 mls/hr IVPB DAILY [facility] Last Admin: 05/18/17 10:03 Dose: 250 mls/hr Ceftriaxone Sodium 1,000 mg/ (Dextrose) 50 mls @ 100 mls/hr IVPB DAILY [facility] Last Admin: 05/18/17 11:13 Dose: 100 mls/hr Isosorbide Mononitrate (Imdur -) 60 mg PO DAILY [facility] Last Admin: 05/18/17 10:12 Dose: 60 mg Methylprednisolone Sodium Succinate (Solu-Medrol -) 40 mg IVPB Q6H-IV [facility] Last Admin: 05/19/17 04:00 Dose: 40 mg Oxycodone/Acetaminophen (Percocet 5/325 -) 1 combo PO Q6H PRN PRN Reason: PAIN LEVEL 4 - 6 Last Admin: 05/18/17 00:28 Dose: 1 combo Pantoprazole Sodium (Protonix -) 40 mg PO DAILY [facility] Last Admin: 05/18/17 10:12 Dose: 40 mg - Objective Vital Signs: Vital Signs Temperature 98.6 F 05/18/17 08:00 Pulse Rate 66 05/19/17 07:11 Respiratory Rate 21 05/19/17 07:26 Blood Pressure 167/65 05/19/17 07:11 O2 Sat by Pulse Oximetry (%) 100 05/19/17 07:26 Constitutional: Yes: No Distress, Calm Cardiovascular: Yes: Regular Rate and Rhythm, S1, S2 Respiratory: Yes: Regular, Rhonchi Gastrointestinal: Yes: Normal Bowel Sounds, Soft. No: Tenderness Edema: No Neurological: Yes: Alert, Oriented Labs: CBC, BMP 05/19/17 06:35 05/19/17 06:35 INR, PTT INR 1.03 (0.82-1.09) 05/17/17 12:30 Problem List - Problems (1) Acute respiratory failure with hypoxia and hypercapnia Code(s): J96.01 - ACUTE RESPIRATORY FAILURE WITH HYPOXIA; J96.02 - ACUTE RESPIRATORY FAILURE WITH HYPERCAPNIA (2) CAD (coronary artery disease) Code(s): I25.10 - ATHSCL HEART DISEASE OF [place] CORONARY ARTERY W/O ANG PCTRS Qualifiers: Coronary Disease-Associated Artery/Lesion type: [place] artery [place] vs. transplanted heart: [place] heart Associated angina: without angina Qualified Code(s): I25.10 - Atherosclerotic heart disease of [place] coronary artery without angina pectoris (3) PVD (peripheral vascular disease) Code(s): I73.9 - PERIPHERAL VASCULAR DISEASE, UNSPECIFIED (4) History of left above knee amputation Code(s): Z89.612 - ACQUIRED ABSENCE OF LEFT LEG ABOVE KNEE Assessment/Plan BIPAP IV steroids- per pulmonary Pulmonary, Cardio consult and f/u appreciated GI Prophylaxis DVT Prophylaxis Case was d/w pt's nurse ( at bedside). AM labs.
[2017-05-19] MEDS ORDERED: ALBUTEROL SO4 2.5/IPRATROPIUM 0.5 INH SOL 3 ML VIAL.NEB. NEB ONE ×2 (09:32→10:49)
[2017-05-19] MEDS: ALBUTEROL SO4 2.5/IPRATROPIUM 0.5 INH SOL 3 ML VIAL.NEB. NEB SCH ×4 (09:36→20:51)
--- NOTE | 2017-05-19 09:54 | PN ---
Progress Note, Physician History of Present Illness: Dyspnea and cough improving, now off bipap, eating lunch comfortably. - Current Medication List Current Medications: Active Medications Albuterol Sulfate (Ventolin 0.083% Nebulizer Soln -) 1 amp NEB Q4H PRN PRN Reason: SHORT OF BREATH/WHEEZING Albuterol/Ipratropium (Duoneb -) 1 amp NEB RQID [facility] Last Admin: 05/19/17 09:36 Dose: 1 amp Amlodipine Besylate (Norvasc -) 10 mg PO DAILY [facility] Last Admin: 05/18/17 10:11 Dose: 10 mg Aspirin (Ecotrin -) 81 mg PO DAILY [facility] Last Admin: 05/18/17 10:10 Dose: 81 mg Atorvastatin Calcium (Lipitor -) 10 mg PO HS [facility] Last Admin: 05/18/17 22:46 Dose: 10 mg Bupropion HCl (Wellbutrin Xl -) 150 mg PO DAILY [facility] Last Admin: 05/18/17 10:12 Dose: 150 mg Carvedilol (Coreg -) 6.25 mg PO BID [facility] Last Admin: 05/18/17 22:46 Dose: 6.25 mg Clopidogrel Bisulfate (Plavix -) 75 mg PO DAILY [facility] Last Admin: 05/18/17 10:11 Dose: 75 mg Gabapentin (Neurontin -) 400 mg PO TID [facility] Last Admin: 05/19/17 07:18 Dose: 400 mg Heparin Sodium (Porcine) (Heparin -) 5,000 unit SQ BID [facility] Last Admin: 05/18/17 22:46 Dose: 5,000 unit Azithromycin 500 mg/ Dextrose 250 mls @ 250 mls/hr IVPB DAILY [facility] Last Admin: 05/18/17 10:03 Dose: 250 mls/hr Ceftriaxone Sodium 1,000 mg/ (Dextrose) 50 mls @ 100 mls/hr IVPB DAILY [facility] Last Admin: 05/18/17 11:13 Dose: 100 mls/hr Isosorbide Mononitrate (Imdur -) 60 mg PO DAILY [facility] Last Admin: 05/18/17 10:12 Dose: 60 mg Methylprednisolone Sodium Succinate (Solu-Medrol -) 40 mg IVPB Q6H-IV [facility] Last Admin: 05/19/17 09:36 Dose: 40 mg Oxycodone/Acetaminophen (Percocet 5/325 -) 1 combo PO Q6H PRN PRN Reason: PAIN LEVEL 4 - 6 Last Admin: 05/18/17 00:28 Dose: 1 combo Pantoprazole Sodium (Protonix -) 40 mg PO DAILY [facility] Last Admin: 05/18/17 10:12 Dose: 40 mg - Objective Vital Signs: Vital Signs Temperature 98.6 F 05/18/17 08:00 Pulse Rate 51 L 05/19/17 09:39 Respiratory Rate 22 05/19/17 09:39 Blood Pressure 160/81 05/19/17 09:39 O2 Sat by Pulse Oximetry (%) 100 05/19/17 09:39 Constitutional: Yes: No Distress, Calm, Thin Neck: Yes: Supple Cardiovascular: Yes: Regular Rate and Rhythm Respiratory: Yes: Regular, Diminished, On Nasal O2 Gastrointestinal: Yes: Normal Bowel Sounds, Soft Extremities: Yes: Amputation (left AKA) Edema: No Labs: CBC, BMP 05/19/17 06:35 05/19/17 06:35 INR, PTT INR 1.03 (0.82-1.09) 05/17/17 12:30 Problem List - Problems (1) S/P coronary artery stent placement Code(s): Z95.5 - PRESENCE OF CORONARY ANGIOPLASTY IMPLANT AND GRAFT (2) Systolic dysfunction Code(s): I51.9 - HEART DISEASE, UNSPECIFIED (3) Acute on chronic respiratory failure with hypoxia and hypercapnia Code(s): J96.21 - ACUTE AND CHRONIC RESPIRATORY FAILURE WITH HYPOXIA; J96.22 - ACUTE AND CHRONIC RESPIRATORY FAILURE WITH HYPERCAPNIA (4) CAD (coronary artery disease) Code(s): I25.10 - ATHSCL HEART DISEASE OF [place] CORONARY ARTERY W/O ANG PCTRS Qualifiers: Coronary Disease-Associated Artery/Lesion type: [place] artery [place] vs. transplanted heart: [place] heart Associated angina: without angina Qualified Code(s): I25.10 - Atherosclerotic heart disease of [place] coronary artery without angina pectoris (5) COPD with acute exacerbation Code(s): J44.1 - CHRONIC OBSTRUCTIVE PULMONARY DISEASE W (ACUTE) EXACERBATION (6) History of left above knee amputation Code(s): Z89.612 - ACQUIRED ABSENCE OF LEFT LEG ABOVE KNEE (7) PVD (peripheral vascular disease) Code(s): I73.9 - PERIPHERAL VASCULAR DISEASE, UNSPECIFIED Assessment/Plan TTE: Moderate decreased LV fxnwith mild LAE, mild AR, mild MR, mild MV prolapse , mild-mod TR, mild IA 1. Acute on Chronic Hypoxic and Hypercapneic Respiratory Failure 2. Acute exacerbation of chronic obstructive airway disease improving 3. CAD s/p [place], PCI (stent), angina pectoris 4. LV systolic dysfunction (moderate), compensated/euvolemic 5. PAD post left AKA 6. Hypertension 7. Hypercholesterolemia 8. Carotid artery disease PLAN: 1. Continue Coreg 6.25 bid 2. Continue Imdur 60 qd 3. Continue Norvasc 10 qd 4. Recommend the addition of ACEI or ARBS unless it is contraindicated 5. Continue Lipitor 10 qhs 6. Continue ASA 81 qd and Plavix 75 qd 7. Antibiotics, IV steroids, O2 and bronchodilators as per the primary team 8. DVT and GI prophylaxis 9. CT chest noncontrast when respiratory status improves to f/u nodules
[2017-05-19] MEDS: ISOSORBIDE MONONITRATE 60 MG TAB.SR.24H (FP) PO SCH (10:30)
[2017-05-19] MEDS: HEPARIN NA (PORCINE) 5,000 UNITS/ML 1ML VIAL SQ SCH ×2 (10:30→22:23)
[2017-05-19] MEDS: CARVEDILOL 6.25 MG TABLET (FP) PO SCH ×2 (10:30→22:23)
[2017-05-19] MEDS: PANTOPRAZOLE 40 MG TABLET (FP) PO SCH (10:30)
[2017-05-19] MEDS: ASPIRIN COATED 81 MG TABLET.EC PO SCH (10:30)
[2017-05-19] MEDS: CLOPIDOGREL BISULFATE 75 MG TABLET (FP) PO SCH (10:30)
[2017-05-19] MEDS: amLODIPine BESYLATE 10 MG TABLET (FP) PO SCH (10:30)
[2017-05-19] MEDS ORDERED: AZITHROMYCIN IVPB 250 ML IVPB ONE (10:50)
[2017-05-19] MEDS ORDERED: CEFTRIAXONE 1 GM/50 ML BAG ONE (10:51)
[2017-05-19] MEDS: CEFTRIAXONE 1,000 MG in DEXTROSE 5%-WATER - 50 ML IVPB SCH (11:00)
[2017-05-19] MEDS: AZITHROMYCIN IVPB 500 MG in DEXTROSE 5%-WATER - 250 ML IVPB SCH (11:16)
--- NOTE | 2017-05-19 12:41 | PN ---
Progress Note, Physician History of Present Illness: pulmonary alert,feeling better less dyspneic,on nasal o2 at with bipap - Current Medication List Current Medications: Active Medications Albuterol Sulfate (Ventolin 0.083% Nebulizer Soln -) 1 amp NEB Q4H PRN PRN Reason: SHORT OF BREATH/WHEEZING Albuterol/Ipratropium (Duoneb -) 1 amp NEB RQID [facility] Last Admin: 05/19/17 12:12 Dose: 1 amp Amlodipine Besylate (Norvasc -) 10 mg PO DAILY [facility] Last Admin: 05/19/17 10:30 Dose: 10 mg Aspirin (Ecotrin -) 81 mg PO DAILY [facility] Last Admin: 05/19/17 10:30 Dose: 81 mg Atorvastatin Calcium (Lipitor -) 10 mg PO HS [facility] Last Admin: 05/18/17 22:46 Dose: 10 mg Bupropion HCl (Wellbutrin Xl -) 150 mg PO DAILY [facility] Last Admin: 05/19/17 10:30 Dose: 150 mg Carvedilol (Coreg -) 6.25 mg PO BID [facility] Last Admin: 05/19/17 10:30 Dose: 6.25 mg Clopidogrel Bisulfate (Plavix -) 75 mg PO DAILY [facility] Last Admin: 05/19/17 10:30 Dose: 75 mg Gabapentin (Neurontin -) 400 mg PO TID [facility] Last Admin: 05/19/17 07:18 Dose: 400 mg Heparin Sodium (Porcine) (Heparin -) 5,000 unit SQ BID [facility] Last Admin: 05/19/17 10:30 Dose: 5,000 unit Azithromycin 500 mg/ Dextrose 250 mls @ 250 mls/hr IVPB DAILY [facility] Last Admin: 05/19/17 11:16 Dose: 250 mls/hr Ceftriaxone Sodium 1,000 mg/ (Dextrose) 50 mls @ 100 mls/hr IVPB DAILY [facility] Last Admin: 05/19/17 11:00 Dose: 100 mls/hr Isosorbide Mononitrate (Imdur -) 60 mg PO DAILY [facility] Last Admin: 05/19/17 10:30 Dose: 60 mg Methylprednisolone Sodium Succinate (Solu-Medrol -) 40 mg IVPB Q6H-IV [facility] Last Admin: 05/19/17 09:36 Dose: 40 mg Oxycodone/Acetaminophen (Percocet 5/325 -) 1 combo PO Q6H PRN PRN Reason: PAIN LEVEL 4 - 6 Last Admin: 05/18/17 00:28 Dose: 1 combo Pantoprazole Sodium (Protonix -) 40 mg PO DAILY [facility] Last Admin: 05/19/17 10:30 Dose: 40 mg - Objective Vital Signs: Vital Signs Temperature 98.6 F 05/18/17 08:00 Pulse Rate 51 L 05/19/17 09:39 Respiratory Rate 22 05/19/17 09:39 Blood Pressure 160/81 05/19/17 09:39 O2 Sat by Pulse Oximetry (%) 100 05/19/17 09:39 Constitutional: Yes: Calm, Thin Eyes: Yes: WNL HENT: Yes: WNL Neck: Yes: WNL Cardiovascular: Yes: Regular Rate and Rhythm, S1, S2 Respiratory: Yes: Wheezes Gastrointestinal: Yes: Normal Bowel Sounds, Soft Extremities: Yes: WNL Edema: No Labs: CBC, BMP 05/19/17 06:35 05/19/17 06:35 INR, PTT INR 1.03 (0.82-1.09) 05/17/17 12:30 Assessment/Plan A/P Acute on Chronic Hypoxic and Hypercapneic Respiratory Failure Acute COPD Exacerbation Lung Nodules CAD PAD s/p L AKA HTN Hypercholesterolemia - medrol at current dose - inhaled bronchodilators standing and PRN - empiric antibiotics - CT chest noncontrast when respiratory status improved to f/u nodules - O2 to keep SpO2 >90% - BiPAP as needed - monitor ABGs - DVT prophylaxis DR MARTÍNEZ Problem List - Problems (1) Acute on chronic respiratory failure with hypoxia and hypercapnia Code(s): J96.21 - ACUTE AND CHRONIC RESPIRATORY FAILURE WITH HYPOXIA; J96.22 - ACUTE AND CHRONIC RESPIRATORY FAILURE WITH HYPERCAPNIA (2) COPD with acute exacerbation Code(s): J44.1 - CHRONIC OBSTRUCTIVE PULMONARY DISEASE W (ACUTE) EXACERBATION (3) CAD (coronary artery disease) Code(s): I25.10 - ATHSCL HEART DISEASE OF [place] CORONARY ARTERY W/O ANG PCTRS (4) PVD (peripheral vascular disease) Code(s): I73.9 - PERIPHERAL VASCULAR DISEASE, UNSPECIFIED
[2017-05-19 22:09] LABS: URINE APPEARANCE CLEAR; URINE BILIRUBIN NEGATIVE (<2.0 mg/dL); URINE BLOOD 1+ (NEGATIVE); URINE COLOR LTYELLOW; URINE GLUCOSE (UA) NEGATIVE (NEGATIVE); URINE KETONE NEGATIVE (NEGATIVE); URINE LEUK ESTERASE NEGATIVE (NEGATIVE); URINE NITRITE NEGATIVE (NEGATIVE); URINE UROBILINOGEN NEGATIVE mg/dL (0.2-1.0)
[2017-05-19 22:15] LABS: URINE PROTEIN 2+ (NEGATIVE)
[2017-05-19 22:16] LABS: EPI CELLS RARE /HPF (FEW); URINE BACTERIA RARE /hpf (NONE SEEN); URINE HYALINE CAST 7 /lpf; URINE MUCUS RARE
[2017-05-19] MEDS: ATORVASTATIN CA 10 MG TABLET (FP) PO SCH (22:23)
[2017-05-20] MEDS: methylPREDNISolone NA SUCC 40 MG/1 ML VIAL IVPB SCH ×4 (03:50→21:59)
[2017-05-20] MEDS: GABAPENTIN 400 MG CAPSULE (FP) PO SCH ×3 (06:47→21:59)
[2017-05-20 06:48] LABS: HEMATOCRIT 36.4 % (32.4-45.2); HEMOGLOBIN 12.2 GM/dL (10.7-15.3); MCH 27.6 pg (25.7-33.7); MCHC 33.5 g/dl (32.0-36.0); MEAN CELL VOLUME 82.2 fl (80-96); MEAN PLT VOLUME 11.2 fl (7.5-11.1); PLATELET COUNT 136 K/MM3 (134-434); RBC 4.42 M/mm3 (3.60-5.2); RDW 14.8 % (11.6-15.6); WHITE BLOOD COUNT 9.8 K/mm3 (4.0-10.0)
[2017-05-20 07:34] LABS: CHLORIDE 103 mmol/L (98-107); SODIUM 138 mmol/L (136-145)
[2017-05-20 07:52] LABS: ANION GAP 6 (8-16); BLOOD UREA NITROGEN 45 mg/dL (7-18); CALCIUM 9.3 mg/dL (8.5-10.1); CO2 29 mmol/L (21-32); CREATININE 1.1 mg/dL (0.55-1.02); GLUCOSE,RANDOM 99 mg/dL (74-106)
--- NOTE | 2017-05-20 08:26 | PN ---
Progress Note (short form) - Note Progress Note: Chief Complaint: Events noted, notes reviewed, persistent dyspnea although some improvement, persistent cough productive of clear sputum, denies any chest pain History of Present Illness: Seen and examined on telemetry. Events noted, notes reviewed, persistent dyspnea although some improvement, persistent cough productive of clear sputum, denies any chest pain TTE: Moderate decrease in LV function, mild LAE, mild AR, mild MV prolapse with mild MR, mild-mod TR, mild NV Medications: Current Medications Albuterol Sulfate (Ventolin 0.083% Nebulizer Soln -) 1 amp NEB Q4H PRN PRN Reason: SHORT OF BREATH/WHEEZING Albuterol/Ipratropium (Duoneb -) 1 amp NEB RQID [facility] Last Admin: 05/19/17 20:51 Dose: 1 amp Amlodipine Besylate (Norvasc -) 10 mg PO DAILY [facility] Last Admin: 05/19/17 10:30 Dose: 10 mg Aspirin (Ecotrin -) 81 mg PO DAILY [facility] Last Admin: 05/19/17 10:30 Dose: 81 mg Atorvastatin Calcium (Lipitor -) 10 mg PO HS [facility] Last Admin: 05/19/17 22:23 Dose: 10 mg Bupropion HCl (Wellbutrin Xl -) 150 mg PO DAILY [facility] Last Admin: 05/19/17 10:30 Dose: 150 mg Carvedilol (Coreg -) 6.25 mg PO BID [facility] Last Admin: 05/19/17 22:23 Dose: 6.25 mg Clopidogrel Bisulfate (Plavix -) 75 mg PO DAILY [facility] Last Admin: 05/19/17 10:30 Dose: 75 mg Gabapentin (Neurontin -) 400 mg PO TID [facility] Last Admin: 05/20/17 06:47 Dose: 400 mg Heparin Sodium (Porcine) (Heparin -) 5,000 unit SQ BID [facility] Last Admin: 05/19/17 22:23 Dose: 5,000 unit Azithromycin 500 mg/ Dextrose 250 mls @ 250 mls/hr IVPB DAILY [facility] Last Admin: 05/19/17 11:16 Dose: 250 mls/hr Ceftriaxone Sodium 1,000 mg/ (Dextrose) 50 mls @ 100 mls/hr IVPB DAILY [facility] Last Admin: 05/19/17 11:00 Dose: 100 mls/hr Isosorbide Mononitrate (Imdur -) 60 mg PO DAILY [facility] Last Admin: 04/02/18 10:30 Dose: 60 mg Methylprednisolone Sodium Succinate (Solu-Medrol -) 40 mg IVPB Q6H-IV [facility] Last Admin: 05/20/17 03:50 Dose: 40 mg Oxycodone/Acetaminophen (Percocet 5/325 -) 1 combo PO Q6H PRN PRN Reason: PAIN LEVEL 4 - 6 Last Admin: 05/18/17 00:28 Dose: 1 combo Pantoprazole Sodium (Protonix -) 40 mg PO DAILY [facility] Last Admin: 05/19/17 10:30 Dose: 40 mg Review of Systems - Review of Systems Constitutional: denies: Chills, Fever Cardiovascular: As noted above Respiratory: reports: Cough and sputum Production Gastrointestinal: denies: Nausea, Vomiting, Diarrhea, Constipation or Abdominal Pain Musculoskeletal: denies: Joint Pain Neurological: denies: Dizziness or Headaches Vital Signs: Last Vital Signs Temp Pulse Resp BP Pulse Ox 98.2 F 56 L 20 156/75 98 05/20/17 06:00 05/20/17 06:00 05/20/17 06:00 05/20/17 06:00 05/20/17 06:00 Intake & Output 05/17/17 05/18/17 05/19/17 05/20/17 23:59 23:59 23:59 23:59 Intake Total 22 Balance 22 Weight 120 lb 110 lb Neck: Supple negative JVD no bruit appreciated Respiratory: Bilateral Scattered Rhonchi Cardiovascular: S1-S2 Regular Rate and Rhythm Gastrointestinal: soft benign Normal Bowel Sounds Ext: No edema Left AKA Labs: CBC, BMP 05/20/17 06:25 05/20/17 06:25 Assessment/Plan ASSESSMENT: 1. Acute on Chronic Hypoxic and Hypercapneic Respiratory Failure related to 2. Acute exacerbation of chronic obstructive airway disease 3. CAD post [place]/PCI (stent) angina pectoris 4. Systolic/diastolic LV dysfunction with chronic class I-II NYHA classification LV failure, compensated/euvolemic 5. PAD post left AKA 6. Hypertension 7. Hypercholesterolemia 8. Carotid stenosis 9. CKD PLAN: 1. Continue Coreg 2. Continue Imdur 3. Continue Norvasc but decrease dosage 4. Recommend the addition of ACEI or ARBS unless it is contraindicated with close monitoring of renal function, initiate Diovan 5. Continue Lipitor 6. Continue ASA and Plavix with caution 7. Antibiotics, steroids and bronchodilators as per the primary team Ginger Lucia MD
[2017-05-20] MEDS: ALBUTEROL SO4 2.5/IPRATROPIUM 0.5 INH SOL 3 ML VIAL.NEB. NEB SCH ×4 (09:00→21:38)
[2017-05-20] MEDS: CEFTRIAXONE 1,000 MG in DEXTROSE 5%-WATER - 50 ML IVPB SCH (09:33)
[2017-05-20] MEDS: CLOPIDOGREL BISULFATE 75 MG TABLET (FP) PO SCH (09:33)
[2017-05-20] MEDS: HEPARIN NA (PORCINE) 5,000 UNITS/ML 1ML VIAL SQ SCH ×2 (09:33→21:59)
[2017-05-20] MEDS: PANTOPRAZOLE 40 MG TABLET (FP) PO SCH (09:33)
[2017-05-20] MEDS: ISOSORBIDE MONONITRATE 60 MG TAB.SR.24H (FP) PO SCH (09:33)
[2017-05-20] MEDS: AZITHROMYCIN IVPB 500 MG in DEXTROSE 5%-WATER - 250 ML IVPB SCH (09:33)
[2017-05-20] MEDS: ASPIRIN COATED 81 MG TABLET.EC PO SCH (09:33)
--- NOTE | 2017-05-20 09:36 | PN ---
Progress Note, Physician History of Present Illness: Pt is breathing better this AM, on NC. Pt w/o CP, palpitations, abd pain. - Current Medication List Current Medications: Active Medications Albuterol Sulfate (Ventolin 0.083% Nebulizer Soln -) 1 amp NEB Q4H PRN PRN Reason: SHORT OF BREATH/WHEEZING Albuterol/Ipratropium (Duoneb -) 1 amp NEB RQID [facility] Last Admin: 05/19/17 20:51 Dose: 1 amp Amlodipine Besylate (Norvasc -) 5 mg PO DAILY [facility] Aspirin (Ecotrin -) 81 mg PO DAILY [facility] Last Admin: 05/19/17 10:30 Dose: 81 mg Atorvastatin Calcium (Lipitor -) 10 mg PO HS [facility] Last Admin: 05/19/17 22:23 Dose: 10 mg Bupropion HCl (Wellbutrin Xl -) 150 mg PO DAILY [facility] Last Admin: 05/19/17 10:30 Dose: 150 mg Carvedilol (Coreg -) 6.25 mg PO BID [facility] Last Admin: 05/19/17 22:23 Dose: 6.25 mg Clopidogrel Bisulfate (Plavix -) 75 mg PO DAILY [facility] Last Admin: 05/19/17 10:30 Dose: 75 mg Gabapentin (Neurontin -) 400 mg PO TID [facility] Last Admin: 05/20/17 06:47 Dose: 400 mg Heparin Sodium (Porcine) (Heparin -) 5,000 unit SQ BID [facility] Last Admin: 05/19/17 22:23 Dose: 5,000 unit Azithromycin 500 mg/ Dextrose 250 mls @ 250 mls/hr IVPB DAILY [facility] Last Admin: 05/19/17 11:16 Dose: 250 mls/hr Ceftriaxone Sodium 1,000 mg/ (Dextrose) 50 mls @ 100 mls/hr IVPB DAILY [facility] Last Admin: 05/19/17 11:00 Dose: 100 mls/hr Isosorbide Mononitrate (Imdur -) 60 mg PO DAILY [facility] Last Admin: 05/19/17 10:30 Dose: 60 mg Methylprednisolone Sodium Succinate (Solu-Medrol -) 40 mg IVPB Q6H-IV [facility] Last Admin: 05/20/17 03:50 Dose: 40 mg Oxycodone/Acetaminophen (Percocet 5/325 -) 1 combo PO Q6H PRN PRN Reason: PAIN LEVEL 4 - 6 Last Admin: 05/18/17 00:28 Dose: 1 combo Pantoprazole Sodium (Protonix -) 40 mg PO DAILY [facility] Last Admin: 05/19/17 10:30 Dose: 40 mg Valsartan (Diovan -) 80 mg PO DAILY [facility] - Objective Vital Signs: Vital Signs Temperature 98.2 F 05/20/17 06:00 Pulse Rate 56 L 05/20/17 06:00 Respiratory Rate 20 05/20/17 06:00 Blood Pressure 156/75 05/20/17 06:00 O2 Sat by Pulse Oximetry (%) 98 05/20/17 06:00 Constitutional: Yes: No Distress, Calm Cardiovascular: Yes: Regular Rate and Rhythm, S1, S2 Respiratory: Yes: Regular, Rhonchi, Wheezes Gastrointestinal: Yes: Normal Bowel Sounds, Soft. No: Tenderness Edema: No Neurological: Yes: Alert, Oriented Labs: CBC, BMP 05/20/17 06:25 05/20/17 06:25 INR, PTT INR 1.03 (0.82-1.09) 05/17/17 12:30 Problem List - Problems (1) Acute respiratory failure with hypoxia and hypercapnia Code(s): J96.01 - ACUTE RESPIRATORY FAILURE WITH HYPOXIA; J96.02 - ACUTE RESPIRATORY FAILURE WITH HYPERCAPNIA (2) CAD (coronary artery disease) Code(s): I25.10 - ATHSCL HEART DISEASE OF [place] CORONARY ARTERY W/O ANG PCTRS Qualifiers: Coronary Disease-Associated Artery/Lesion type: [place] artery [place] vs. transplanted heart: [place] heart Associated angina: without angina Qualified Code(s): I25.10 - Atherosclerotic heart disease of [place] coronary artery without angina pectoris (3) PVD (peripheral vascular disease) Code(s): I73.9 - PERIPHERAL VASCULAR DISEASE, UNSPECIFIED (4) History of left above knee amputation Code(s): Z89.612 - ACQUIRED ABSENCE OF LEFT LEG ABOVE KNEE Assessment/Plan BIPAP PRN; To monitor O2 sat while on NC IV steroids- per pulmonary Pulmonary, Cardio consults and f/u appreciated GI Prophylaxis DVT Prophylaxis Case was d/w pt's nurse ( at bedside). AM labs.
[2017-05-20] MEDS: amLODIPine BESYLATE 5 MG TABLET (FP) PO SCH (09:38)
[2017-05-20] MEDS: VALSARTAN 80 MG TABLET (UD) PO SCH (09:38)
[2017-05-20] MEDS ORDERED: PT OWN MED DRAWER 7, Y5N ONE (09:38)
[2017-05-20] MEDS: CARVEDILOL 6.25 MG TABLET (FP) PO SCH ×2 (10:03→21:59)
--- NOTE | 2017-05-20 11:37 | PN ---
Progress Note, Physician History of Present Illness: PULMONARY ALERT,LESS DYSPNEIC,+ DRY COUGH - Current Medication List Current Medications: Active Medications Albuterol Sulfate (Ventolin 0.083% Nebulizer Soln -) 1 amp NEB Q4H PRN PRN Reason: SHORT OF BREATH/WHEEZING Albuterol/Ipratropium (Duoneb -) 1 amp NEB RQID [facility] Last Admin: 05/20/17 09:00 Dose: 1 amp Amlodipine Besylate (Norvasc -) 5 mg PO DAILY [facility] Last Admin: 05/20/17 09:38 Dose: 5 mg Aspirin (Ecotrin -) 81 mg PO DAILY [facility] Last Admin: 05/20/17 09:33 Dose: 81 mg Atorvastatin Calcium (Lipitor -) 10 mg PO HS [facility] Last Admin: 05/19/17 22:23 Dose: 10 mg Bupropion HCl (Wellbutrin Xl -) 150 mg PO DAILY [facility] Last Admin: 05/20/17 09:39 Dose: 150 mg Carvedilol (Coreg -) 6.25 mg PO BID [facility] Last Admin: 05/20/17 10:03 Dose: 6.25 mg Clopidogrel Bisulfate (Plavix -) 75 mg PO DAILY [facility] Last Admin: 05/20/17 09:33 Dose: 75 mg Gabapentin (Neurontin -) 400 mg PO TID [facility] Last Admin: 05/20/17 06:47 Dose: 400 mg Heparin Sodium (Porcine) (Heparin -) 5,000 unit SQ BID [facility] Last Admin: 05/20/17 09:33 Dose: 5,000 unit Azithromycin 500 mg/ Dextrose 250 mls @ 250 mls/hr IVPB DAILY [facility] Last Admin: 05/20/17 09:33 Dose: 250 mls/hr Ceftriaxone Sodium 1,000 mg/ (Dextrose) 50 mls @ 100 mls/hr IVPB DAILY [facility] Last Admin: 05/20/17 09:33 Dose: 100 mls/hr Isosorbide Mononitrate (Imdur -) 60 mg PO DAILY [facility] Last Admin: 05/20/17 09:33 Dose: 60 mg Methylprednisolone Sodium Succinate (Solu-Medrol -) 40 mg IVPB Q6H-IV [facility] Last Admin: 05/20/17 09:33 Dose: 40 mg Oxycodone/Acetaminophen (Percocet 5/325 -) 1 combo PO Q6H PRN PRN Reason: PAIN LEVEL 4 - 6 Last Admin: 05/18/17 00:28 Dose: 1 combo Pantoprazole Sodium (Protonix -) 40 mg PO DAILY [facility] Last Admin: 05/20/17 09:33 Dose: 40 mg Valsartan (Diovan -) 80 mg PO DAILY [facility] Last Admin: 05/20/17 09:38 Dose: 80 mg - Objective Vital Signs: Vital Signs Temperature 98.2 F 05/20/17 06:00 Pulse Rate 56 L 05/20/17 06:00 Respiratory Rate 20 05/20/17 06:00 Blood Pressure 156/75 05/20/17 06:00 O2 Sat by Pulse Oximetry (%) 98 05/20/17 06:00 Constitutional: Yes: Calm, Thin Eyes: Yes: WNL HENT: Yes: WNL Neck: Yes: WNL Cardiovascular: Yes: Regular Rate and Rhythm, S1, S2 Respiratory: Yes: Rhonchi (MARTHA WHEEZES), Wheezes Gastrointestinal: Yes: Normal Bowel Sounds, Soft Extremities: Yes: WNL Edema: No Labs: CBC, BMP 05/20/17 06:25 05/20/17 06:25 INR, PTT INR 1.03 (0.82-1.09) 05/17/17 12:30 Assessment/Plan A/P Acute on Chronic Hypoxic and Hypercapneic Respiratory Failure Acute COPD Exacerbation Lung Nodules CAD PAD s/p L AKA HTN Hypercholesterolemia - medrol - inhaled bronchodilators standing and PRN - empiric antibiotics - CT chest noncontrast when respiratory status improved to f/u nodules - O2 to keep SpO2 >90% - BiPAP as needed - monitor ABGs - DVT prophylaxis DR MARTÍNEZ Problem List - Problems (1) Acute on chronic respiratory failure with hypoxia and hypercapnia Code(s): J96.21 - ACUTE AND CHRONIC RESPIRATORY FAILURE WITH HYPOXIA; J96.22 - ACUTE AND CHRONIC RESPIRATORY FAILURE WITH HYPERCAPNIA (2) COPD with acute exacerbation Code(s): J44.1 - CHRONIC OBSTRUCTIVE PULMONARY DISEASE W (ACUTE) EXACERBATION (3) CAD (coronary artery disease) Code(s): I25.10 - ATHSCL HEART DISEASE OF [place] CORONARY ARTERY W/O ANG PCTRS (4) PVD (peripheral vascular disease) Code(s): I73.9 - PERIPHERAL VASCULAR DISEASE, UNSPECIFIED
[2017-05-20] MEDS: ATORVASTATIN CA 10 MG TABLET (FP) PO SCH (21:59)
[2017-05-21] MEDS: methylPREDNISolone NA SUCC 40 MG/1 ML VIAL IVPB SCH ×3 (03:53→17:54)
[2017-05-21] MEDS: GABAPENTIN 400 MG CAPSULE (FP) PO SCH ×3 (06:28→21:22)
[2017-05-21 07:35] LABS: BASO % 0.1 % (0-2.0); HEMATOCRIT 39.8 % (32.4-45.2); HEMOGLOBIN 13.2 GM/dL (10.7-15.3); LYMPH % 5.3 % (8-40); MCH 27.5 pg (25.7-33.7); MCHC 33.2 g/dl (32.0-36.0); MEAN CELL VOLUME 82.7 fl (80-96); MEAN PLT VOLUME 11.3 fl (7.5-11.1); MONO % 3.1 % (3.8-10.2); NEUT % 91.5 % (42.8-82.8); PLATELET COUNT 145 K/MM3 (134-434); RBC 4.81 M/mm3 (3.60-5.2); RDW 14.7 % (11.6-15.6); WHITE BLOOD COUNT 9.1 K/mm3 (4.0-10.0)
[2017-05-21] MEDS: ALBUTEROL SO4 2.5/IPRATROPIUM 0.5 INH SOL 3 ML VIAL.NEB. NEB SCH ×4 (07:45→21:15)
[2017-05-21 07:54] LABS: CHLORIDE 102 mmol/L (98-107); POTASSIUM 5.1 mmol/L (3.5-5.1); SODIUM 142 mmol/L (136-145)
[2017-05-21 07:59] LABS: ALBUMIN 3.3 g/dl (3.4-5.0); ALK PHOS 128 U/L (45-117); ANION GAP 8 (8-16); BILIRUBIN,TOTAL 0.2 mg/dL (0.2-1.0); BLOOD UREA NITROGEN 34 mg/dL (7-18); CALCIUM 10.2 mg/dL (8.5-10.1); CO2 32 mmol/L (21-32); GLUCOSE,RANDOM 104 mg/dL (74-106); SGOT/AST 24 U/L (15-37); SGPT/ALT 28 U/L (12-78); TOT PROT 6.9 g/dl (6.4-8.2)
[2017-05-21] MEDS: VALSARTAN 80 MG TABLET (UD) PO SCH (09:40)
[2017-05-21] MEDS: CEFTRIAXONE 1,000 MG in DEXTROSE 5%-WATER - 50 ML IVPB SCH (09:40)
[2017-05-21] MEDS: amLODIPine BESYLATE 5 MG TABLET (FP) PO SCH (09:40)
[2017-05-21] MEDS: AZITHROMYCIN IVPB 500 MG in DEXTROSE 5%-WATER - 250 ML IVPB SCH (09:40)
[2017-05-21] MEDS: ASPIRIN COATED 81 MG TABLET.EC PO SCH (09:40)
[2017-05-21] MEDS: PANTOPRAZOLE 40 MG TABLET (FP) PO SCH (09:40)
[2017-05-21] MEDS: ISOSORBIDE MONONITRATE 60 MG TAB.SR.24H (FP) PO SCH (09:40)
[2017-05-21] MEDS: HEPARIN NA (PORCINE) 5,000 UNITS/ML 1ML VIAL SQ SCH ×2 (09:40→21:23)
[2017-05-21] MEDS: CARVEDILOL 6.25 MG TABLET (FP) PO SCH ×2 (09:40→21:23)
[2017-05-21] MEDS: CLOPIDOGREL BISULFATE 75 MG TABLET (FP) PO SCH (09:40)
--- NOTE | 2017-05-21 10:09 | PN ---
Progress Note, Physician History of Present Illness: Dyspnea and cough improving, comfortable on NC. - Current Medication List Current Medications: Active Medications Albuterol Sulfate (Ventolin 0.083% Nebulizer Soln -) 1 amp NEB Q4H PRN PRN Reason: SHORT OF BREATH/WHEEZING Albuterol/Ipratropium (Duoneb -) 1 amp NEB RQID [facility] Last Admin: 05/21/17 07:45 Dose: 1 amp Amlodipine Besylate (Norvasc -) 5 mg PO DAILY [facility] Last Admin: 05/21/17 09:40 Dose: 5 mg Aspirin (Ecotrin -) 81 mg PO DAILY [facility] Last Admin: 05/21/17 09:40 Dose: 81 mg Atorvastatin Calcium (Lipitor -) 10 mg PO HS [facility] Last Admin: 05/20/17 21:59 Dose: 10 mg Bupropion HCl (Wellbutrin Xl -) 150 mg PO DAILY [facility] Last Admin: 05/21/17 09:40 Dose: 150 mg Carvedilol (Coreg -) 6.25 mg PO BID [facility] Last Admin: 05/21/17 09:40 Dose: 6.25 mg Clopidogrel Bisulfate (Plavix -) 75 mg PO DAILY [facility] Last Admin: 05/21/17 09:40 Dose: 75 mg Gabapentin (Neurontin -) 400 mg PO TID [facility] Last Admin: 05/21/17 06:28 Dose: 400 mg Heparin Sodium (Porcine) (Heparin -) 5,000 unit SQ BID [facility] Last Admin: 05/21/17 09:40 Dose: 5,000 unit Azithromycin 500 mg/ Dextrose 250 mls @ 250 mls/hr IVPB DAILY [facility] Last Admin: 05/21/17 09:40 Dose: 250 mls/hr Ceftriaxone Sodium 1,000 mg/ (Dextrose) 50 mls @ 100 mls/hr IVPB DAILY [facility] Last Admin: 05/21/17 09:40 Dose: 100 mls/hr Isosorbide Mononitrate (Imdur -) 60 mg PO DAILY [facility] Last Admin: 05/21/17 09:40 Dose: 60 mg Methylprednisolone Sodium Succinate (Solu-Medrol -) 40 mg IVPB Q6H-IV [facility] Last Admin: 05/21/17 09:40 Dose: 40 mg Pantoprazole Sodium (Protonix -) 40 mg PO DAILY [facility] Last Admin: 05/21/17 09:40 Dose: 40 mg Valsartan (Diovan -) 80 mg PO DAILY [facility] Last Admin: 05/21/17 09:40 Dose: 80 mg - Objective Vital Signs: Vital Signs Temperature 97.8 F 05/21/17 06:00 Pulse Rate 57 L 05/21/17 06:00 Respiratory Rate 18 05/21/17 06:00 Blood Pressure 146/76 05/21/17 06:00 O2 Sat by Pulse Oximetry (%) 97 05/20/17 22:33 Constitutional: Yes: No Distress, Calm, Thin Neck: Yes: Supple Cardiovascular: Yes: Regular Rate and Rhythm Respiratory: Yes: Regular, Diminished, On Nasal O2 Gastrointestinal: Yes: Normal Bowel Sounds, Soft Extremities: Yes: Amputation (Left AKA) Edema: No Labs: CBC, BMP 05/21/17 07:04 05/21/17 07:04 INR, PTT INR 1.03 (0.82-1.09) 05/17/17 12:30 - ....Imaging EKG: Report Reviewed (Tele: [facility]) Problem List - Problems (1) S/P coronary artery stent placement Code(s): Z95.5 - PRESENCE OF CORONARY ANGIOPLASTY IMPLANT AND GRAFT (2) Systolic dysfunction Code(s): I51.9 - HEART DISEASE, UNSPECIFIED (3) Acute on chronic respiratory failure with hypoxia and hypercapnia Code(s): J96.21 - ACUTE AND CHRONIC RESPIRATORY FAILURE WITH HYPOXIA; J96.22 - ACUTE AND CHRONIC RESPIRATORY FAILURE WITH HYPERCAPNIA (4) CAD (coronary artery disease) Code(s): I25.10 - ATHSCL HEART DISEASE OF [place] CORONARY ARTERY W/O ANG PCTRS Qualifiers: Coronary Disease-Associated Artery/Lesion type: [place] artery [place] vs. transplanted heart: [place] heart Associated angina: without angina Qualified Code(s): I25.10 - Atherosclerotic heart disease of [place] coronary artery without angina pectoris (5) COPD with acute exacerbation Code(s): J44.1 - CHRONIC OBSTRUCTIVE PULMONARY DISEASE W (ACUTE) EXACERBATION (6) History of left above knee amputation Code(s): Z89.612 - ACQUIRED ABSENCE OF LEFT LEG ABOVE KNEE (7) PVD (peripheral vascular disease) Code(s): I73.9 - PERIPHERAL VASCULAR DISEASE, UNSPECIFIED Assessment/Plan TTE: Moderate decreased LV fxnwith mild LAE, mild AR, mild MR, mild MV prolapse , mild-mod TR, mild OR 1. Acute on Chronic Hypoxic and Hypercapneic Respiratory Failure improving 2. Acute exacerbation of chronic obstructive airway disease improving 3. CAD s/p [place], PCI (stent), angina pectoris 4. LV systolic dysfunction (moderate), compensated/euvolemic 5. PAD post left AKA 6. Hypertension 7. Hypercholesterolemia 8. Carotid artery disease 9. CKD PLAN: 1. Continue Coreg 6.25 bid 2. Continue Imdur 60 qd 3. Continue Norvasc 5 qd 4. Continue Diovan 80 qd 5. Continue Lipitor 10 qhs 6. Continue ASA 81 qd and Plavix 75 qd 7. Antibiotics, IV steroid taper, O2 and bronchodilators as per the primary team 8. DVT and GI prophylaxis 9. F/u CT chest noncontrast when respiratory status improves to f/u nodules
--- NOTE | 2017-05-21 11:25 | PN ---
Progress Note, Physician History of Present Illness: Pt is breathing better this AM, on NC, states that didn't use BIPAP. Pt w/o CP, palpitations, abd pain. - Current Medication List Current Medications: Active Medications Albuterol Sulfate (Ventolin 0.083% Nebulizer Soln -) 1 amp NEB Q4H PRN PRN Reason: SHORT OF BREATH/WHEEZING Albuterol/Ipratropium (Duoneb -) 1 amp NEB RQID [facility] Last Admin: 05/21/17 07:45 Dose: 1 amp Amlodipine Besylate (Norvasc -) 5 mg PO DAILY [facility] Last Admin: 05/21/17 09:40 Dose: 5 mg Aspirin (Ecotrin -) 81 mg PO DAILY [facility] Last Admin: 05/21/17 09:40 Dose: 81 mg Atorvastatin Calcium (Lipitor -) 10 mg PO HS [facility] Last Admin: 05/20/17 21:59 Dose: 10 mg Bupropion HCl (Wellbutrin Xl -) 150 mg PO DAILY [facility] Last Admin: 05/21/17 09:40 Dose: 150 mg Carvedilol (Coreg -) 6.25 mg PO BID [facility] Last Admin: 05/21/17 09:40 Dose: 6.25 mg Clopidogrel Bisulfate (Plavix -) 75 mg PO DAILY [facility] Last Admin: 05/21/17 09:40 Dose: 75 mg Gabapentin (Neurontin -) 400 mg PO TID [facility] Last Admin: 05/21/17 06:28 Dose: 400 mg Heparin Sodium (Porcine) (Heparin -) 5,000 unit SQ BID [facility] Last Admin: 05/21/17 09:40 Dose: 5,000 unit Azithromycin 500 mg/ Dextrose 250 mls @ 250 mls/hr IVPB DAILY [facility] Last Admin: 05/21/17 09:40 Dose: 250 mls/hr Ceftriaxone Sodium 1 gm/ (Dextrose) 50 mls @ 100 mls/hr IVPB DAILY [facility] Stop: 05/24/17 10:29 Isosorbide Mononitrate (Imdur -) 60 mg PO DAILY [facility] Last Admin: 05/21/17 09:40 Dose: 60 mg Methylprednisolone Sodium Succinate (Solu-Medrol -) 40 mg IVPB Q6H-IV [facility] Last Admin: 05/21/17 09:40 Dose: 40 mg Pantoprazole Sodium (Protonix -) 40 mg PO DAILY [facility] Last Admin: 05/21/17 09:40 Dose: 40 mg Valsartan (Diovan -) 80 mg PO DAILY [facility] Last Admin: 05/21/17 09:40 Dose: 80 mg - Objective Vital Signs: Vital Signs Temperature 97.8 F 05/21/17 06:00 Pulse Rate 57 L 05/21/17 06:00 Respiratory Rate 18 05/21/17 09:00 Blood Pressure 146/76 05/21/17 06:00 O2 Sat by Pulse Oximetry (%) 97 05/21/17 09:00 Constitutional: Yes: No Distress, Calm Cardiovascular: Yes: Regular Rate and Rhythm, S1, S2 Respiratory: Yes: Regular, Rhonchi, Wheezes (improved) Gastrointestinal: Yes: Normal Bowel Sounds, Soft Edema: No (Right leg; s/p Leftr AKA) Neurological: Yes: Alert, Oriented Labs: CBC, BMP 05/21/17 07:04 05/21/17 07:04 INR, PTT INR 1.03 (0.82-1.09) 05/17/17 12:30 Problem List - Problems (1) Acute respiratory failure with hypoxia and hypercapnia Code(s): J96.01 - ACUTE RESPIRATORY FAILURE WITH HYPOXIA; J96.02 - ACUTE RESPIRATORY FAILURE WITH HYPERCAPNIA (2) CAD (coronary artery disease) Code(s): I25.10 - ATHSCL HEART DISEASE OF [place] CORONARY ARTERY W/O ANG PCTRS Qualifiers: Coronary Disease-Associated Artery/Lesion type: [place] artery [place] vs. transplanted heart: [place] heart Associated angina: without angina Qualified Code(s): I25.10 - Atherosclerotic heart disease of [place] coronary artery without angina pectoris (3) PVD (peripheral vascular disease) Code(s): I73.9 - PERIPHERAL VASCULAR DISEASE, UNSPECIFIED (4) History of left above knee amputation Code(s): Z89.612 - ACQUIRED ABSENCE OF LEFT LEG ABOVE KNEE Assessment/Plan To monitor O2 sat while on NC To mat IV steroids. Pulmonary, Cardio consults and f/u appreciated GI Prophylaxis DVT Prophylaxis Case was d/w pt's nurse ( at bedside). AM labs.
--- NOTE | 2017-05-21 11:56 | PN ---
Progress Note, Physician History of Present Illness: pulmonary alert,feeling betterless dyspneic ,less congested,+ cough - Current Medication List Current Medications: Active Medications Albuterol Sulfate (Ventolin 0.083% Nebulizer Soln -) 1 amp NEB Q4H PRN PRN Reason: SHORT OF BREATH/WHEEZING Albuterol/Ipratropium (Duoneb -) 1 amp NEB RQID [facility] Last Admin: 05/21/17 07:45 Dose: 1 amp Amlodipine Besylate (Norvasc -) 5 mg PO DAILY [facility] Last Admin: 05/21/17 09:40 Dose: 5 mg Aspirin (Ecotrin -) 81 mg PO DAILY [facility] Last Admin: 05/21/17 09:40 Dose: 81 mg Atorvastatin Calcium (Lipitor -) 10 mg PO HS [facility] Last Admin: 05/20/17 21:59 Dose: 10 mg Bupropion HCl (Wellbutrin Xl -) 150 mg PO DAILY [facility] Last Admin: 05/21/17 09:40 Dose: 150 mg Carvedilol (Coreg -) 6.25 mg PO BID [facility] Last Admin: 05/21/17 09:40 Dose: 6.25 mg Clopidogrel Bisulfate (Plavix -) 75 mg PO DAILY [facility] Last Admin: 05/21/17 09:40 Dose: 75 mg Gabapentin (Neurontin -) 400 mg PO TID [facility] Last Admin: 05/21/17 06:28 Dose: 400 mg Heparin Sodium (Porcine) (Heparin -) 5,000 unit SQ BID [facility] Last Admin: 05/21/17 09:40 Dose: 5,000 unit Azithromycin 500 mg/ Dextrose 250 mls @ 250 mls/hr IVPB DAILY [facility] Last Admin: 05/21/17 09:40 Dose: 250 mls/hr Ceftriaxone Sodium 1 gm/ (Dextrose) 50 mls @ 100 mls/hr IVPB DAILY [facility] Stop: 05/24/17 10:29 Isosorbide Mononitrate (Imdur -) 60 mg PO DAILY [facility] Last Admin: 05/21/17 09:40 Dose: 60 mg Methylprednisolone Sodium Succinate (Solu-Medrol -) 40 mg IVPB Q6H-IV [facility] Last Admin: 05/21/17 09:40 Dose: 40 mg Pantoprazole Sodium (Protonix -) 40 mg PO DAILY [facility] Last Admin: 05/21/17 09:40 Dose: 40 mg Valsartan (Diovan -) 80 mg PO DAILY [facility] Last Admin: 05/21/17 09:40 Dose: 80 mg - Objective Vital Signs: Vital Signs Temperature 97.8 F 05/21/17 06:00 Pulse Rate 57 L 05/21/17 06:00 Respiratory Rate 18 05/21/17 09:00 Blood Pressure 146/76 05/21/17 06:00 O2 Sat by Pulse Oximetry (%) 97 05/21/17 09:00 Constitutional: Yes: No Distress, Calm, Thin Eyes: Yes: WNL HENT: Yes: WNL Neck: Yes: WNL Cardiovascular: Yes: Regular Rate and Rhythm, S1, S2 Respiratory: Yes: Rhonchi (few rhonchi) Gastrointestinal: Yes: Normal Bowel Sounds, Soft Extremities: Yes: WNL Edema: No Labs: CBC, BMP 05/21/17 07:04 05/21/17 07:04 INR, PTT INR 1.03 (0.82-1.09) 05/17/17 12:30 Assessment/Plan A/P Acute on Chronic Hypoxic and Hypercapneic Respiratory Failure Acute COPD Exacerbation Lung Nodules CAD PAD s/p L AKA HTN Hypercholesterolemia - medrol taper - inhaled bronchodilators standing and PRN - empiric antibiotics - CT chest noncontrast - O2 to keep SpO2 >90% - BiPAP as needed - monitor ABGs - DVT prophylaxis DR MARTÍNEZ Problem List - Problems (1) Acute on chronic respiratory failure with hypoxia and hypercapnia Code(s): J96.21 - ACUTE AND CHRONIC RESPIRATORY FAILURE WITH HYPOXIA; J96.22 - ACUTE AND CHRONIC RESPIRATORY FAILURE WITH HYPERCAPNIA (2) COPD with acute exacerbation Code(s): J44.1 - CHRONIC OBSTRUCTIVE PULMONARY DISEASE W (ACUTE) EXACERBATION (3) CAD (coronary artery disease) Code(s): I25.10 - ATHSCL HEART DISEASE OF [place] CORONARY ARTERY W/O ANG PCTRS (4) PVD (peripheral vascular disease) Code(s): I73.9 - PERIPHERAL VASCULAR DISEASE, UNSPECIFIED
[2017-05-21] MEDS ORDERED: oxyCODONE HCL 5 MG TABLET PO PRN (12:45)
[2017-05-21] MEDS: ATORVASTATIN CA 10 MG TABLET (FP) PO SCH (21:22)
[2017-05-22] MEDS: methylPREDNISolone NA SUCC 40 MG/1 ML VIAL IVPB SCH ×3 (03:05→17:27)
[2017-05-22] MEDS: amLODIPine BESYLATE 5 MG TABLET (FP) PO SCH ×2 (06:42→09:11)
[2017-05-22] MEDS: GABAPENTIN 400 MG CAPSULE (FP) PO SCH ×3 (06:42→21:18)
[2017-05-22 07:15] LABS: HEMATOCRIT 39.6 % (32.4-45.2); HEMOGLOBIN 12.7 GM/dL (10.7-15.3); MCH 26.6 pg (25.7-33.7); MCHC 32.2 g/dl (32.0-36.0); MEAN CELL VOLUME 82.6 fl (80-96); MEAN PLT VOLUME 10.5 fl (7.5-11.1); PLATELET COUNT 114 K/MM3 (134-434); RBC 4.79 M/mm3 (3.60-5.2); RDW 14.3 % (11.6-15.6); WHITE BLOOD COUNT 8.5 K/mm3 (4.0-10.0)
[2017-05-22] MEDS: ALBUTEROL SO4 2.5/IPRATROPIUM 0.5 INH SOL 3 ML VIAL.NEB. NEB SCH ×4 (07:40→20:06)
[2017-05-22 07:59] LABS: CHLORIDE 102 mmol/L (98-107); SODIUM 143 mmol/L (136-145)
[2017-05-22 08:04] LABS: ANION GAP 10 (8-16); BLOOD UREA NITROGEN 33 mg/dL (7-18); CALCIUM 9.6 mg/dL (8.5-10.1); CO2 31 mmol/L (21-32); GLUCOSE,RANDOM 97 mg/dL (74-106)
[2017-05-22] MEDS ORDERED: cefTRIAXone SODIUM 1 GM VIAL ONE ×2 (08:26→08:43)
[2017-05-22] MEDS ORDERED: DEXTROSE 5%-WATER - 100 ML IVPB ONE (08:27)
[2017-05-22] MEDS ORDERED: DEXTROSE 5%-WATER - 50 ML IVPB ONE (08:43)
[2017-05-22] MEDS ORDERED: PT OWN MED DRAWER 7, Y5N ONE ×2 (08:46→18:03)
[2017-05-22] MEDS: PANTOPRAZOLE 40 MG TABLET (FP) PO SCH (09:10)
[2017-05-22] MEDS: ASPIRIN COATED 81 MG TABLET.EC PO SCH (09:10)
[2017-05-22] MEDS: VALSARTAN 80 MG TABLET (UD) PO SCH (09:10)
[2017-05-22] MEDS: ISOSORBIDE MONONITRATE 60 MG TAB.SR.24H (FP) PO SCH (09:10)
[2017-05-22] MEDS: CLOPIDOGREL BISULFATE 75 MG TABLET (FP) PO SCH (09:10)
[2017-05-22] MEDS: CARVEDILOL 6.25 MG TABLET (FP) PO SCH ×2 (09:10→21:17)
[2017-05-22] MEDS: HEPARIN NA (PORCINE) 5,000 UNITS/ML 1ML VIAL SQ SCH ×2 (09:10→21:17)
[2017-05-22] MEDS: CEFTRIAXONE 1 GM in DEXTROSE 5%-WATER - 50 ML IVPB SCH (09:11)
[2017-05-22] MEDS: AZITHROMYCIN IVPB 500 MG in DEXTROSE 5%-WATER - 250 ML IVPB SCH (09:11)
--- NOTE | 2017-05-22 10:20 | PN ---
Progress Note, Physician History of Present Illness: Dyspnea and cough improving, comfortable on NC. Did not receive AM meds yet. - Current Medication List Current Medications: Active Medications Acetaminophen (Tylenol -) 325 mg PO Q8H PRN PRN Reason: PAIN Albuterol Sulfate (Ventolin 0.083% Nebulizer Soln -) 1 amp NEB Q4H PRN PRN Reason: SHORT OF BREATH/WHEEZING Albuterol/Ipratropium (Duoneb -) 1 amp NEB RQID [facility] Last Admin: 05/22/17 07:40 Dose: Not Given Amlodipine Besylate (Norvasc -) 5 mg PO DAILY [facility] Last Admin: 05/22/17 09:11 Dose: Not Given Aspirin (Ecotrin -) 81 mg PO DAILY [facility] Last Admin: 05/22/17 09:10 Dose: 81 mg Atorvastatin Calcium (Lipitor -) 10 mg PO HS [facility] Last Admin: 05/21/17 21:22 Dose: 10 mg Bupropion HCl (Wellbutrin Xl -) 150 mg PO DAILY [facility] Last Admin: 05/22/17 09:11 Dose: 150 mg Carvedilol (Coreg -) 6.25 mg PO BID [facility] Last Admin: 05/22/17 09:10 Dose: 6.25 mg Clopidogrel Bisulfate (Plavix -) 75 mg PO DAILY [facility] Last Admin: 05/22/17 09:10 Dose: 75 mg Gabapentin (Neurontin -) 400 mg PO TID [facility] Last Admin: 05/22/17 06:42 Dose: 400 mg Heparin Sodium (Porcine) (Heparin -) 5,000 unit SQ BID [facility] Last Admin: 05/22/17 09:10 Dose: 5,000 unit Azithromycin 500 mg/ Dextrose 250 mls @ 250 mls/hr IVPB DAILY [facility] Last Admin: 05/22/17 09:11 Dose: 250 mls/hr Ceftriaxone Sodium 1 gm/ (Dextrose) 50 mls @ 100 mls/hr IVPB DAILY [facility] Stop: 05/24/17 10:29 Last Admin: 05/22/17 09:11 Dose: 100 mls/hr Isosorbide Mononitrate (Imdur -) 60 mg PO DAILY [facility] Last Admin: 05/22/17 09:10 Dose: 60 mg Methylprednisolone Sodium Succinate (Solu-Medrol -) 40 mg IVPB Q8H-IV [facility] Last Admin: 05/22/17 09:10 Dose: 40 mg Oxycodone HCl (Roxicodone -) 5 mg PO Q8H PRN PRN Reason: PAIN LEVEL NEEDED Pantoprazole Sodium (Protonix -) 40 mg PO DAILY [facility] Last Admin: 05/22/17 09:10 Dose: 40 mg Valsartan (Diovan -) 80 mg PO DAILY [facility] Last Admin: 05/22/17 09:10 Dose: 80 mg - Objective Vital Signs: Vital Signs Temperature 98.6 F 05/22/17 02:00 Pulse Rate 68 05/22/17 06:00 Respiratory Rate 20 05/22/17 06:00 Blood Pressure 178/89 05/22/17 06:00 O2 Sat by Pulse Oximetry (%) 100 05/21/17 21:00 Constitutional: Yes: No Distress, Calm, Thin Neck: Yes: Supple Cardiovascular: Yes: Regular Rate and Rhythm Respiratory: Yes: Regular, Diminished, On Nasal O2 Gastrointestinal: Yes: Normal Bowel Sounds, Soft Extremities: Yes: Amputation (Left AKA) Edema: No Labs: CBC, BMP 05/22/17 05:35 05/22/17 05:35 INR, PTT INR 1.03 (0.82-1.09) 05/17/17 12:30 - ....Imaging EKG: Report Reviewed (Tele: [facility] - [place], [place]) Problem List - Problems (1) S/P coronary artery stent placement Code(s): Z95.5 - PRESENCE OF CORONARY ANGIOPLASTY IMPLANT AND GRAFT (2) Systolic dysfunction Code(s): I51.9 - HEART DISEASE, UNSPECIFIED (3) Acute on chronic respiratory failure with hypoxia and hypercapnia Code(s): J96.21 - ACUTE AND CHRONIC RESPIRATORY FAILURE WITH HYPOXIA; J96.22 - ACUTE AND CHRONIC RESPIRATORY FAILURE WITH HYPERCAPNIA (4) CAD (coronary artery disease) Code(s): I25.10 - ATHSCL HEART DISEASE OF [place] CORONARY ARTERY W/O ANG PCTRS Qualifiers: Coronary Disease-Associated Artery/Lesion type: [place] artery [place] vs. transplanted heart: [place] heart Associated angina: without angina Qualified Code(s): I25.10 - Atherosclerotic heart disease of [place] coronary artery without angina pectoris (5) COPD with acute exacerbation Code(s): J44.1 - CHRONIC OBSTRUCTIVE PULMONARY DISEASE W (ACUTE) EXACERBATION (6) History of left above knee amputation Code(s): Z89.612 - ACQUIRED ABSENCE OF LEFT LEG ABOVE KNEE (7) PVD (peripheral vascular disease) Code(s): I73.9 - PERIPHERAL VASCULAR DISEASE, UNSPECIFIED (8) Thoracic aortic aneurysm Code(s): I71.2 - THORACIC AORTIC ANEURYSM, WITHOUT RUPTURE Qualifiers: Presence of rupture: without rupture Qualified Code(s): I71.2 - Thoracic aortic aneurysm, without rupture Assessment/Plan TTE: Moderate decreased LV fxnwith mild LAE, mild AR, mild MR, mild MV prolapse , mild-mod TR, mild NH 1. Acute on Chronic Hypoxic and Hypercapneic Respiratory Failure improving 2. Acute exacerbation of chronic obstructive airway disease improving 3. CAD s/p [place], PCI (stent), angina pectoris 4. LV systolic dysfunction (moderate), compensated/euvolemic 5. PAD post left AKA 6. Hypertension 7. Hypercholesterolemia 8. Carotid artery disease 9. CKD 10. Stable pulm nodules 11. 5 cm TAA similar to previous 12/2015 study PLAN: 1. Continue Coreg 6.25 bid 2. Continue Imdur 60 qd 3. Continue Norvasc 5 qd 4. Continue Diovan 80 qd 5. Continue Lipitor 10 qhs 6. Continue ASA 81 qd and Plavix 75 qd 7. Empiric antibiotic course, IV steroid taper, O2 and bronchodilators as per the primary team 8. DVT and GI prophylaxis 9. F/u CT chest to assess interval change of TAA
--- NOTE | 2017-05-22 13:00 | PN ---
Progress Note (short form) - Note Progress Note: PULMONARY Still some shortness of breath and nonproductive cough. Last Vital Signs Temp Pulse Resp BP Pulse Ox 98.6 F 68 20 178/89 98 05/22/17 02:00 05/22/17 06:00 05/22/17 09:00 05/22/17 06:00 05/22/17 09:00 Gen: NAD at rest Heart: RRR Lung: distant breath sounds, no wheezes Abd: soft, nontender Ext: no edema, L AKA CBC, BMP 05/22/17 05:35 05/22/17 05:35 Active Medications Acetaminophen (Tylenol -) 325 mg PO Q8H PRN PRN Reason: PAIN Albuterol Sulfate (Ventolin 0.083% Nebulizer Soln -) 1 amp NEB Q4H PRN PRN Reason: SHORT OF BREATH/WHEEZING Albuterol/Ipratropium (Duoneb -) 1 amp NEB RQID [facility] Last Admin: 05/22/17 11:20 Dose: 1 amp Amlodipine Besylate (Norvasc -) 5 mg PO DAILY [facility] Last Admin: 05/22/17 09:11 Dose: Not Given Aspirin (Ecotrin -) 81 mg PO DAILY [facility] Last Admin: 05/22/17 09:10 Dose: 81 mg Atorvastatin Calcium (Lipitor -) 10 mg PO HS [facility] Last Admin: 05/21/17 21:22 Dose: 10 mg Bupropion HCl (Wellbutrin Xl -) 150 mg PO DAILY [facility] Last Admin: 05/22/17 09:11 Dose: 150 mg Carvedilol (Coreg -) 6.25 mg PO BID [facility] Last Admin: 05/22/17 09:10 Dose: 6.25 mg Clopidogrel Bisulfate (Plavix -) 75 mg PO DAILY [facility] Last Admin: 05/22/17 09:10 Dose: 75 mg Gabapentin (Neurontin -) 400 mg PO TID [facility] Last Admin: 05/22/17 06:42 Dose: 400 mg Heparin Sodium (Porcine) (Heparin -) 5,000 unit SQ BID [facility] Last Admin: 05/22/17 09:10 Dose: 5,000 unit Azithromycin 500 mg/ Dextrose 250 mls @ 250 mls/hr IVPB DAILY [facility] Last Admin: 05/22/17 09:11 Dose: 250 mls/hr Ceftriaxone Sodium 1 gm/ (Dextrose) 50 mls @ 100 mls/hr IVPB DAILY [facility] Stop: 05/24/17 10:29 Last Admin: 05/22/17 09:11 Dose: 100 mls/hr Isosorbide Mononitrate (Imdur -) 60 mg PO DAILY [facility] Last Admin: 05/22/17 09:10 Dose: 60 mg Methylprednisolone Sodium Succinate (Solu-Medrol -) 40 mg IVPB Q8H-IV [facility] Last Admin: 05/22/17 09:10 Dose: 40 mg Oxycodone HCl (Roxicodone -) 5 mg PO Q8H PRN PRN Reason: PAIN LEVEL 6-10 Pantoprazole Sodium (Protonix -) 40 mg PO DAILY [facility] Last Admin: 05/22/17 09:10 Dose: 40 mg Valsartan (Diovan -) 80 mg PO DAILY [facility] Last Admin: 05/22/17 09:10 Dose: 80 mg A/P Acute on Chronic Hypoxic and Hypercapneic Respiratory Failure Acute COPD Exacerbation r/o Pneumonia Lung Nodules stable CAD PAD s/p L AKA HTN Hypercholesterolemia - continue medrol at current dose - inhaled bronchodilators standing and PRN - empiric antibiotics - O2 to keep SpO2 >90% - BiPAP as needed - monitor ABG - DVT prophylaxis Problem List - Problems (1) Acute on chronic respiratory failure with hypoxia and hypercapnia Code(s): J96.21 - ACUTE AND CHRONIC RESPIRATORY FAILURE WITH HYPOXIA; J96.22 - ACUTE AND CHRONIC RESPIRATORY FAILURE WITH HYPERCAPNIA (2) COPD with acute exacerbation Code(s): J44.1 - CHRONIC OBSTRUCTIVE PULMONARY DISEASE W (ACUTE) EXACERBATION (3) CAD (coronary artery disease) Code(s): I25.10 - ATHSCL HEART DISEASE OF [place] CORONARY ARTERY W/O ANG PCTRS Qualifiers: Coronary Disease-Associated Artery/Lesion type: [place] artery [place] vs. transplanted heart: [place] heart Associated angina: without angina Qualified Code(s): I25.10 - Atherosclerotic heart disease of [place] coronary artery without angina pectoris (4) PVD (peripheral vascular disease) Code(s): I73.9 - PERIPHERAL VASCULAR DISEASE, UNSPECIFIED
--- NOTE | 2017-05-22 21:11 | PN ---
Progress Note, Physician History of Present Illness: Pt is breathing better. Pt w/o CP, palpitations, abd pain. - Current Medication List Current Medications: Active Medications Acetaminophen (Tylenol -) 325 mg PO Q8H PRN PRN Reason: PAIN Albuterol Sulfate (Ventolin 0.083% Nebulizer Soln -) 1 amp NEB Q4H PRN PRN Reason: SHORT OF BREATH/WHEEZING Albuterol/Ipratropium (Duoneb -) 1 amp NEB RQID [facility] Last Admin: 05/22/17 20:06 Dose: 1 amp Amlodipine Besylate (Norvasc -) 5 mg PO DAILY [facility] Last Admin: 05/22/17 09:11 Dose: Not Given Aspirin (Ecotrin -) 81 mg PO DAILY [facility] Last Admin: 05/22/17 09:10 Dose: 81 mg Atorvastatin Calcium (Lipitor -) 10 mg PO HS [facility] Last Admin: 05/21/17 21:22 Dose: 10 mg Bupropion HCl (Wellbutrin Xl -) 150 mg PO DAILY [facility] Last Admin: 05/22/17 09:11 Dose: 150 mg Carvedilol (Coreg -) 6.25 mg PO BID [facility] Last Admin: 05/22/17 09:10 Dose: 6.25 mg Clopidogrel Bisulfate (Plavix -) 75 mg PO DAILY [facility] Last Admin: 05/22/17 09:10 Dose: 75 mg Gabapentin (Neurontin -) 400 mg PO TID [facility] Last Admin: 05/22/17 13:20 Dose: 400 mg Heparin Sodium (Porcine) (Heparin -) 5,000 unit SQ BID [facility] Last Admin: 05/22/17 09:10 Dose: 5,000 unit Azithromycin 500 mg/ Dextrose 250 mls @ 250 mls/hr IVPB DAILY [facility] Last Admin: 05/22/17 09:11 Dose: 250 mls/hr Ceftriaxone Sodium 1 gm/ (Dextrose) 50 mls @ 100 mls/hr IVPB DAILY [facility] Stop: 05/24/17 10:29 Last Admin: 05/22/17 09:11 Dose: 100 mls/hr Isosorbide Mononitrate (Imdur -) 60 mg PO DAILY [facility] Last Admin: 05/22/17 09:10 Dose: 60 mg Methylprednisolone Sodium Succinate (Solu-Medrol -) 40 mg IVPB Q8H-IV [facility] Last Admin: 05/22/17 17:27 Dose: 40 mg Oxycodone HCl (Roxicodone -) 5 mg PO Q8H PRN PRN Reason: PAIN LEVEL 6-10 Pantoprazole Sodium (Protonix -) 40 mg PO DAILY [facility] Last Admin: 05/22/17 09:10 Dose: 40 mg Valsartan (Diovan -) 80 mg PO DAILY [facility] Last Admin: 05/22/17 09:10 Dose: 80 mg - Objective Vital Signs: Vital Signs Temperature 98.3 F 05/22/17 19:50 Pulse Rate 72 05/22/17 19:50 Respiratory Rate 16 05/22/17 19:50 Blood Pressure 150/80 05/22/17 19:50 O2 Sat by Pulse Oximetry (%) 98 05/22/17 09:00 Constitutional: Yes: No Distress, Calm Cardiovascular: Yes: Regular Rate and Rhythm, S1, S2 Respiratory: Yes: Regular, Rhonchi. No: Wheezes Gastrointestinal: Yes: Normal Bowel Sounds, Soft. No: Tenderness Edema: No Labs: CBC, BMP 05/22/17 05:35 05/22/17 05:35 INR, PTT INR 1.03 (0.82-1.09) 05/17/17 12:30 - ....Imaging Cat Scan: Report Reviewed Problem List - Problems (1) Acute respiratory failure with hypoxia and hypercapnia Code(s): J96.01 - ACUTE RESPIRATORY FAILURE WITH HYPOXIA; J96.02 - ACUTE RESPIRATORY FAILURE WITH HYPERCAPNIA (2) CAD (coronary artery disease) Code(s): I25.10 - ATHSCL HEART DISEASE OF [place] CORONARY ARTERY W/O ANG PCTRS Qualifiers: Coronary Disease-Associated Artery/Lesion type: [place] artery [place] vs. transplanted heart: [place] heart Associated angina: without angina Qualified Code(s): I25.10 - Atherosclerotic heart disease of [place] coronary artery without angina pectoris (3) PVD (peripheral vascular disease) Code(s): I73.9 - PERIPHERAL VASCULAR DISEASE, UNSPECIFIED (4) History of left above knee amputation Code(s): Z89.612 - ACQUIRED ABSENCE OF LEFT LEG ABOVE KNEE Assessment/Plan To monitor O2 sat while on NC Cont same dose IV steroids. Pulmonary, Cardio consults and f/u appreciated GI Prophylaxis DVT Prophylaxis Case was d/w pt's nurse ( at bedside). PT evaluation. AM labs.
[2017-05-22] MEDS: ATORVASTATIN CA 10 MG TABLET (FP) PO SCH (21:17)
[2017-05-23] MEDS: methylPREDNISolone NA SUCC 40 MG/1 ML VIAL IVPB SCH ×3 (02:00→17:16)
[2017-05-23] MEDS: GABAPENTIN 400 MG CAPSULE (FP) PO SCH ×3 (05:54→21:43)
[2017-05-23 07:00] LABS: HEMATOCRIT 39.2 % (32.4-45.2); MCH 27.4 pg (25.7-33.7); MCHC 33.2 g/dl (32.0-36.0); MEAN CELL VOLUME 82.4 fl (80-96); MEAN PLT VOLUME 10.9 fl (7.5-11.1); PLATELET COUNT 137 K/MM3 (134-434); RBC 4.76 M/mm3 (3.60-5.2); RDW 14.8 % (11.6-15.6); WHITE BLOOD COUNT 8.6 K/mm3 (4.0-10.0)
[2017-05-23 07:15] LABS: CHLORIDE 104 mmol/L (98-107); POTASSIUM 4.7 mmol/L (3.5-5.1); SODIUM 143 mmol/L (136-145)
[2017-05-23 07:20] LABS: ANION GAP 7 (8-16); BLOOD UREA NITROGEN 28 mg/dL (7-18); CALCIUM 9.5 mg/dL (8.5-10.1); CO2 32 mmol/L (21-32); CREATININE 0.8 mg/dL (0.55-1.02); GLUCOSE,RANDOM 103 mg/dL (74-106)
[2017-05-23] MEDS: ALBUTEROL SO4 2.5/IPRATROPIUM 0.5 INH SOL 3 ML VIAL.NEB. NEB SCH ×4 (07:58→20:40)
--- NOTE | 2017-05-23 09:13 | PN ---
Progress Note, Physician History of Present Illness: Dyspnea and cough improving, comfortable on NC. - Current Medication List Current Medications: Active Medications Acetaminophen (Tylenol -) 325 mg PO Q8H PRN PRN Reason: PAIN Albuterol Sulfate (Ventolin 0.083% Nebulizer Soln -) 1 amp NEB Q4H PRN PRN Reason: SHORT OF BREATH/WHEEZING Last Admin: 05/23/17 05:30 Dose: 1 amp Albuterol/Ipratropium (Duoneb -) 1 amp NEB RQID [facility] Last Admin: 05/23/17 07:58 Dose: Not Given Amlodipine Besylate (Norvasc -) 5 mg PO DAILY [facility] Last Admin: 05/22/17 09:11 Dose: Not Given Aspirin (Ecotrin -) 81 mg PO DAILY [facility] Last Admin: 05/22/17 09:10 Dose: 81 mg Atorvastatin Calcium (Lipitor -) 10 mg PO HS [facility] Last Admin: 05/22/17 21:17 Dose: 10 mg Bupropion HCl (Wellbutrin Xl -) 150 mg PO DAILY [facility] Last Admin: 05/22/17 09:11 Dose: 150 mg Carvedilol (Coreg -) 6.25 mg PO BID [facility] Last Admin: 05/22/17 21:17 Dose: 6.25 mg Clopidogrel Bisulfate (Plavix -) 75 mg PO DAILY [facility] Last Admin: 05/22/17 09:10 Dose: 75 mg Gabapentin (Neurontin -) 400 mg PO TID [facility] Last Admin: 05/23/17 05:54 Dose: 400 mg Heparin Sodium (Porcine) (Heparin -) 5,000 unit SQ BID [facility] Last Admin: 05/22/17 21:17 Dose: 5,000 unit Azithromycin 500 mg/ Dextrose 250 mls @ 250 mls/hr IVPB DAILY [facility] Last Admin: 05/22/17 09:11 Dose: 250 mls/hr Ceftriaxone Sodium 1 gm/ (Dextrose) 50 mls @ 100 mls/hr IVPB DAILY [facility] Stop: 05/24/17 10:29 Last Admin: 05/22/17 09:11 Dose: 100 mls/hr Isosorbide Mononitrate (Imdur -) 60 mg PO DAILY [facility] Last Admin: 05/22/17 09:10 Dose: 60 mg Methylprednisolone Sodium Succinate (Solu-Medrol -) 40 mg IVPB Q8H-IV [facility] Last Admin: 05/23/17 02:00 Dose: 40 mg Oxycodone HCl (Roxicodone -) 5 mg PO Q8H PRN PRN Reason: PAIN LEVEL 6-10 Pantoprazole Sodium (Protonix -) 40 mg PO DAILY [facility] Last Admin: 05/22/17 09:10 Dose: 40 mg Valsartan (Diovan -) 80 mg PO DAILY [facility] Last Admin: 05/22/17 09:10 Dose: 80 mg - Objective Vital Signs: Vital Signs Temperature 98.4 F 05/23/17 06:00 Pulse Rate 62 05/23/17 06:00 Respiratory Rate 20 05/23/17 06:00 Blood Pressure 147/90 05/23/17 06:00 O2 Sat by Pulse Oximetry (%) 94 L 05/23/17 07:58 Constitutional: Yes: No Distress, Calm, Thin Neck: Yes: Supple Cardiovascular: Yes: Regular Rate and Rhythm Respiratory: Yes: Regular, Diminished, On Nasal O2 Gastrointestinal: Yes: Normal Bowel Sounds, Soft Edema: No Labs: CBC, BMP 05/23/17 06:15 05/23/17 06:15 INR, PTT INR 1.03 (0.82-1.09) 05/17/17 12:30 Problem List - Problems (1) S/P coronary artery stent placement Code(s): Z95.5 - PRESENCE OF CORONARY ANGIOPLASTY IMPLANT AND GRAFT (2) Systolic dysfunction Code(s): I51.9 - HEART DISEASE, UNSPECIFIED (3) Acute on chronic respiratory failure with hypoxia and hypercapnia Code(s): J96.21 - ACUTE AND CHRONIC RESPIRATORY FAILURE WITH HYPOXIA; J96.22 - ACUTE AND CHRONIC RESPIRATORY FAILURE WITH HYPERCAPNIA (4) CAD (coronary artery disease) Code(s): I25.10 - ATHSCL HEART DISEASE OF [place] CORONARY ARTERY W/O ANG PCTRS Qualifiers: Coronary Disease-Associated Artery/Lesion type: [place] artery [place] vs. transplanted heart: [place] heart Associated angina: without angina Qualified Code(s): I25.10 - Atherosclerotic heart disease of [place] coronary artery without angina pectoris (5) COPD with acute exacerbation Code(s): J44.1 - CHRONIC OBSTRUCTIVE PULMONARY DISEASE W (ACUTE) EXACERBATION (6) History of left above knee amputation Code(s): Z89.612 - ACQUIRED ABSENCE OF LEFT LEG ABOVE KNEE (7) PVD (peripheral vascular disease) Code(s): I73.9 - PERIPHERAL VASCULAR DISEASE, UNSPECIFIED (8) Thoracic aortic aneurysm Code(s): I71.2 - THORACIC AORTIC ANEURYSM, WITHOUT RUPTURE Qualifiers: Presence of rupture: without rupture Qualified Code(s): I71.2 - Thoracic aortic aneurysm, without rupture Assessment/Plan TTE: Moderate decreased LV fxnwith mild LAE, mild AR, mild MR, mild MV prolapse , mild-mod TR, mild [place] 1. Acute on Chronic Hypoxic and Hypercapneic Respiratory Failure improving 2. Acute exacerbation of chronic obstructive airway disease improving 3. CAD s/p [place], PCI (stent), angina pectoris 4. LV systolic dysfunction (moderate), compensated/euvolemic 5. PAD post left AKA 6. Hypertension 7. Hypercholesterolemia 8. Carotid artery disease 9. CKD 10. Stable pulm nodules 11. 5 cm TAA similar to previous 12/2015 study PLAN: 1. Continue Coreg 6.25 bid 2. Continue Imdur 60 qd 3. Continue Norvasc 5 qd 4. Continue Diovan 80 qd 5. Continue Lipitor 10 qhs 6. Continue ASA 81 qd and Plavix 75 qd 7. Empiric antibiotic course, IV steroid taper, O2 to keep SpO2 >90% and bronchodilators as per the primary team 8. DVT and GI prophylaxis 9. F/u CT chest to assess interval change of TAA
[2017-05-23] MEDS ORDERED: DEXTROSE 5%-WATER - 50 ML IVPB ONE (09:19)
[2017-05-23] MEDS ORDERED: PT OWN MED DRAWER 7, Y5N ONE (09:19)
[2017-05-23] MEDS ORDERED: cefTRIAXone SODIUM 1 GM VIAL ONE (09:19)
[2017-05-23] MEDS: AZITHROMYCIN IVPB 500 MG in DEXTROSE 5%-WATER - 250 ML IVPB SCH (10:13)
[2017-05-23] MEDS: VALSARTAN 80 MG TABLET (UD) PO SCH (10:17)
[2017-05-23] MEDS: ASPIRIN COATED 81 MG TABLET.EC PO SCH (10:17)
[2017-05-23] MEDS: PANTOPRAZOLE 40 MG TABLET (FP) PO SCH (10:17)
[2017-05-23] MEDS: ISOSORBIDE MONONITRATE 60 MG TAB.SR.24H (FP) PO SCH (10:17)
[2017-05-23] MEDS: CARVEDILOL 6.25 MG TABLET (FP) PO SCH ×2 (10:17→21:42)
[2017-05-23] MEDS: CLOPIDOGREL BISULFATE 75 MG TABLET (FP) PO SCH (10:18)
[2017-05-23] MEDS: HEPARIN NA (PORCINE) 5,000 UNITS/ML 1ML VIAL SQ SCH ×2 (10:18→21:42)
[2017-05-23] MEDS: amLODIPine BESYLATE 5 MG TABLET (FP) PO SCH (10:18)
[2017-05-23] MEDS: CEFTRIAXONE 1 GM in DEXTROSE 5%-WATER - 50 ML IVPB SCH (10:18)
[2017-05-23] MEDS: oxyCODONE HCL 5 MG TABLET PO PRN (10:26)
--- NOTE | 2017-05-23 10:28 | PN ---
Progress Note, Physician History of Present Illness: Pt is breathing better, no BIPAP needed. Pt w/o CP, palpitations, abd pain. - Current Medication List Current Medications: Active Medications Acetaminophen (Tylenol -) 325 mg PO Q8H PRN PRN Reason: PAIN Albuterol Sulfate (Ventolin 0.083% Nebulizer Soln -) 1 amp NEB Q4H PRN PRN Reason: SHORT OF BREATH/WHEEZING Last Admin: 05/23/17 05:30 Dose: 1 amp Albuterol/Ipratropium (Duoneb -) 1 amp NEB RQID [facility] Last Admin: 05/23/17 07:58 Dose: Not Given Amlodipine Besylate (Norvasc -) 5 mg PO DAILY [facility] Last Admin: 05/22/17 09:11 Dose: Not Given Aspirin (Ecotrin -) 81 mg PO DAILY [facility] Last Admin: 05/22/17 09:10 Dose: 81 mg Atorvastatin Calcium (Lipitor -) 10 mg PO HS [facility] Last Admin: 05/22/17 21:17 Dose: 10 mg Bupropion HCl (Wellbutrin Xl -) 150 mg PO DAILY [facility] Last Admin: 05/22/17 09:11 Dose: 150 mg Carvedilol (Coreg -) 6.25 mg PO BID [facility] Last Admin: 05/22/17 21:17 Dose: 6.25 mg Clopidogrel Bisulfate (Plavix -) 75 mg PO DAILY [facility] Last Admin: 05/22/17 09:10 Dose: 75 mg Gabapentin (Neurontin -) 400 mg PO TID [facility] Last Admin: 05/23/17 05:54 Dose: 400 mg Heparin Sodium (Porcine) (Heparin -) 5,000 unit SQ BID [facility] Last Admin: 05/22/17 21:17 Dose: 5,000 unit Azithromycin 500 mg/ Dextrose 250 mls @ 250 mls/hr IVPB DAILY [facility] Last Admin: 05/22/17 09:11 Dose: 250 mls/hr Ceftriaxone Sodium 1 gm/ (Dextrose) 50 mls @ 100 mls/hr IVPB DAILY [facility] Stop: 05/24/17 10:29 Last Admin: 05/22/17 09:11 Dose: 100 mls/hr Isosorbide Mononitrate (Imdur -) 60 mg PO DAILY [facility] Last Admin: 05/22/17 09:10 Dose: 60 mg Methylprednisolone Sodium Succinate (Solu-Medrol -) 40 mg IVPB Q8H-IV [facility] Last Admin: 05/23/17 02:00 Dose: 40 mg Oxycodone HCl (Roxicodone -) 5 mg PO Q8H PRN PRN Reason: PAIN LEVEL 6-10 Pantoprazole Sodium (Protonix -) 40 mg PO DAILY [facility] Last Admin: 05/22/17 09:10 Dose: 40 mg Valsartan (Diovan -) 80 mg PO DAILY [facility] Last Admin: 05/22/17 09:10 Dose: 80 mg - Objective Vital Signs: Vital Signs Temperature 98 F 05/23/17 09:12 Pulse Rate 70 05/23/17 09:12 Respiratory Rate 18 05/23/17 09:12 Blood Pressure 168/94 05/23/17 09:12 O2 Sat by Pulse Oximetry (%) 94 L 05/23/17 07:58 Constitutional: Yes: No Distress, Calm Cardiovascular: Yes: Regular Rate and Rhythm, S1, S2 Respiratory: Yes: Regular, Rhonchi, Wheezes (with forced expiration) Gastrointestinal: Yes: Normal Bowel Sounds, Soft. No: Tenderness Edema: No (right leg) Neurological: Yes: Alert, Oriented Labs: CBC, BMP 05/23/17 06:15 05/23/17 06:15 INR, PTT INR 1.03 (0.82-1.09) 05/17/17 12:30 Problem List - Problems (1) Acute respiratory failure with hypoxia and hypercapnia Code(s): J96.01 - ACUTE RESPIRATORY FAILURE WITH HYPOXIA; J96.02 - ACUTE RESPIRATORY FAILURE WITH HYPERCAPNIA (2) CAD (coronary artery disease) Code(s): I25.10 - ATHSCL HEART DISEASE OF [place] CORONARY ARTERY W/O ANG PCTRS Qualifiers: Coronary Disease-Associated Artery/Lesion type: [place] artery [place] vs. transplanted heart: [place] heart Associated angina: without angina Qualified Code(s): I25.10 - Atherosclerotic heart disease of [place] coronary artery without angina pectoris (3) PVD (peripheral vascular disease) Code(s): I73.9 - PERIPHERAL VASCULAR DISEASE, UNSPECIFIED (4) History of left above knee amputation Code(s): Z89.612 - ACQUIRED ABSENCE OF LEFT LEG ABOVE KNEE Assessment/Plan To monitor O2 sat while on NC IV steroids taper per Pulmonary. Pulmonary, Cardio consults and f/u appreciated GI Prophylaxis DVT Prophylaxis Case was d/w pt's nurse ( at bedside). Case was d/w [facility] nursing processing talc and borate supervisor; pt would need O2 supplementation at home ; pt is not able to perform pre and post, as doesn't have left leg prosthesis in the hospital. PT evaluation. AM labs.
[2017-05-23] MEDS: ACETAMINOPHEN 325 MG TABLET (FP) PO PRN (10:32)
--- NOTE | 2017-05-23 11:28 | PN ---
Progress Note, Physician History of Present Illness: PULMONARY ALERT,STILL SOB BUT SLOWLY IMPROVING,+ COUGH - Current Medication List Current Medications: Active Medications Acetaminophen (Tylenol -) 325 mg PO Q8H PRN PRN Reason: PAIN Last Admin: 05/23/17 10:32 Dose: 325 mg Albuterol Sulfate (Ventolin 0.083% Nebulizer Soln -) 1 amp NEB Q4H PRN PRN Reason: SHORT OF BREATH/WHEEZING Last Admin: 05/23/17 05:30 Dose: 1 amp Albuterol/Ipratropium (Duoneb -) 1 amp NEB RQID [facility] Last Admin: 05/23/17 11:01 Dose: 1 amp Amlodipine Besylate (Norvasc -) 5 mg PO DAILY [facility] Last Admin: 05/23/17 10:18 Dose: 5 mg Aspirin (Ecotrin -) 81 mg PO DAILY [facility] Last Admin: 05/23/17 10:17 Dose: 81 mg Atorvastatin Calcium (Lipitor -) 10 mg PO HS [facility] Last Admin: 05/22/17 21:17 Dose: 10 mg Bupropion HCl (Wellbutrin Xl -) 150 mg PO DAILY [facility] Last Admin: 05/23/17 10:15 Dose: 150 mg Carvedilol (Coreg -) 6.25 mg PO BID [facility] Last Admin: 05/23/17 10:17 Dose: 6.25 mg Clopidogrel Bisulfate (Plavix -) 75 mg PO DAILY [facility] Last Admin: 05/23/17 10:18 Dose: 75 mg Gabapentin (Neurontin -) 400 mg PO TID [facility] Last Admin: 05/23/17 05:54 Dose: 400 mg Heparin Sodium (Porcine) (Heparin -) 5,000 unit SQ BID [facility] Last Admin: 05/23/17 10:18 Dose: 5,000 unit Azithromycin 500 mg/ Dextrose 250 mls @ 250 mls/hr IVPB DAILY [facility] Last Admin: 05/23/17 10:13 Dose: 250 mls/hr Ceftriaxone Sodium 1 gm/ (Dextrose) 50 mls @ 100 mls/hr IVPB DAILY [facility] Stop: 05/24/17 10:29 Last Admin: 05/23/17 10:18 Dose: 100 mls/hr Isosorbide Mononitrate (Imdur -) 60 mg PO DAILY [facility] Last Admin: 05/23/17 10:17 Dose: 60 mg Methylprednisolone Sodium Succinate (Solu-Medrol -) 40 mg IVPB Q8H-IV [facility] Last Admin: 05/23/17 10:16 Dose: 40 mg Oxycodone HCl (Roxicodone -) 5 mg PO Q8H PRN PRN Reason: PAIN LEVEL 6-10 Last Admin: 05/23/17 10:26 Dose: 5 mg Pantoprazole Sodium (Protonix -) 40 mg PO DAILY [facility] Last Admin: 05/23/17 10:17 Dose: 40 mg Valsartan (Diovan -) 80 mg PO DAILY [facility] Last Admin: 05/23/17 10:17 Dose: 80 mg - Objective Vital Signs: Vital Signs Temperature 98 F 05/23/17 09:12 Pulse Rate 88 05/23/17 10:55 Respiratory Rate 18 05/23/17 09:12 Blood Pressure 168/94 05/23/17 09:12 O2 Sat by Pulse Oximetry (%) 94 L 05/23/17 10:55 Constitutional: Yes: Calm, Thin Eyes: Yes: WNL, Occular Prosthesis Neck: Yes: Supple Cardiovascular: Yes: Regular Rate and Rhythm, S1, S2 Respiratory: Yes: Wheezes (SCATTERED MARTHA WHEEZES) Gastrointestinal: Yes: Normal Bowel Sounds, Soft Extremities: Yes: WNL Edema: No Labs: CBC, BMP 05/23/17 06:15 05/23/17 06:15 INR, PTT INR 1.03 (0.82-1.09) 05/17/17 12:30 - ....Imaging Cat Scan: Report Reviewed, Image Reviewed Assessment/Plan A/P Acute on Chronic Hypoxic and Hypercapneic Respiratory Failure Acute COPD Exacerbation Lung Nodules stable CAD PAD s/p L AKA HTN Hypercholesterolemia Thoracic aortic aneurysm - medrol same dose - inhaled bronchodilators standing and PRN - empiric antibiotics - O2 to keep SpO2 >90% - BiPAP as needed - DVT prophylaxis DR MARTÍNEZ Problem List - Problems (1) Acute on chronic respiratory failure with hypoxia and hypercapnia Code(s): J96.21 - ACUTE AND CHRONIC RESPIRATORY FAILURE WITH HYPOXIA; J96.22 - ACUTE AND CHRONIC RESPIRATORY FAILURE WITH HYPERCAPNIA (2) COPD with acute exacerbation Code(s): J44.1 - CHRONIC OBSTRUCTIVE PULMONARY DISEASE W (ACUTE) EXACERBATION (3) CAD (coronary artery disease) Code(s): I25.10 - ATHSCL HEART DISEASE OF [place] CORONARY ARTERY W/O ANG PCTRS (4) PVD (peripheral vascular disease) Code(s): I73.9 - PERIPHERAL VASCULAR DISEASE, UNSPECIFIED
[2017-05-23] MEDS: ATORVASTATIN CA 10 MG TABLET (FP) PO SCH (21:43)
[2017-05-24] MEDS: ACETAMINOPHEN 325 MG TABLET (FP) PO PRN ×2 (00:50→16:30)
[2017-05-24] MEDS: oxyCODONE HCL 5 MG TABLET PO PRN ×2 (00:50→16:29)
[2017-05-24] MEDS: methylPREDNISolone NA SUCC 40 MG/1 ML VIAL IVPB SCH ×4 (02:51→21:59)
[2017-05-24] MEDS: GABAPENTIN 400 MG CAPSULE (FP) PO SCH ×3 (06:36→21:28)
[2017-05-24] MEDS: ALBUTEROL SO4 2.5/IPRATROPIUM 0.5 INH SOL 3 ML VIAL.NEB. NEB SCH ×4 (07:53→20:55)
[2017-05-24 08:05] LABS: CHLORIDE 104 mmol/L (98-107); POTASSIUM 4.7 mmol/L (3.5-5.1); SODIUM 141 mmol/L (136-145)
[2017-05-24 08:49] LABS: ALBUMIN 2.5 g/dl (3.4-5.0); ALK PHOS 91 U/L (45-117); ANION GAP 5 (8-16); BILIRUBIN,TOTAL 0.1 mg/dL (0.2-1.0); BLOOD UREA NITROGEN 31 mg/dL (7-18); CALCIUM 9.1 mg/dL (8.5-10.1); CO2 32 mmol/L (21-32); CREATININE 0.9 mg/dL (0.55-1.02); GLUCOSE,RANDOM 89 mg/dL (74-106); SGOT/AST 23 U/L (15-37); SGPT/ALT 27 U/L (12-78); TOT PROT 5.6 g/dl (6.4-8.2)
[2017-05-24] MEDS ORDERED: cefTRIAXone SODIUM 1 GM VIAL ONE (08:58)
[2017-05-24] MEDS ORDERED: DEXTROSE 5%-WATER - 50 ML IVPB ONE (08:58)
[2017-05-24] MEDS: HEPARIN NA (PORCINE) 5,000 UNITS/ML 1ML VIAL SQ SCH ×2 (09:14→21:27)
[2017-05-24] MEDS: VALSARTAN 80 MG TABLET (UD) PO SCH (09:14)
[2017-05-24] MEDS: ISOSORBIDE MONONITRATE 60 MG TAB.SR.24H (FP) PO SCH (09:14)
[2017-05-24] MEDS: amLODIPine BESYLATE 5 MG TABLET (FP) PO SCH (09:14)
[2017-05-24] MEDS: ASPIRIN COATED 81 MG TABLET.EC PO SCH (09:14)
[2017-05-24] MEDS: CLOPIDOGREL BISULFATE 75 MG TABLET (FP) PO SCH (09:14)
[2017-05-24] MEDS: CARVEDILOL 6.25 MG TABLET (FP) PO SCH ×2 (09:14→21:27)
[2017-05-24] MEDS: PANTOPRAZOLE 40 MG TABLET (FP) PO SCH (09:14)
[2017-05-24] MEDS: CEFTRIAXONE 1 GM in DEXTROSE 5%-WATER - 50 ML IVPB SCH (09:21)
[2017-05-24] MEDS: AZITHROMYCIN IVPB 500 MG in DEXTROSE 5%-WATER - 250 ML IVPB SCH (09:21)
--- NOTE | 2017-05-24 10:04 | PN ---
Progress Note, Physician History of Present Illness: PULMONARY ALERT,FEELING BETTER,LESS DYSPNEIC ON NASAL O2 - Current Medication List Current Medications: Active Medications Acetaminophen (Tylenol -) 325 mg PO Q8H PRN PRN Reason: PAIN Last Admin: 05/24/17 00:50 Dose: 325 mg Albuterol Sulfate (Ventolin 0.083% Nebulizer Soln -) 1 amp NEB Q4H PRN PRN Reason: SHORT OF BREATH/WHEEZING Last Admin: 05/23/17 05:30 Dose: 1 amp Albuterol/Ipratropium (Duoneb -) 1 amp NEB RQID [facility] Last Admin: 05/24/17 07:53 Dose: 1 amp Amlodipine Besylate (Norvasc -) 5 mg PO DAILY [facility] Last Admin: 05/24/17 09:14 Dose: 5 mg Aspirin (Ecotrin -) 81 mg PO DAILY [facility] Last Admin: 05/24/17 09:14 Dose: 81 mg Atorvastatin Calcium (Lipitor -) 10 mg PO HS [facility] Last Admin: 05/23/17 21:43 Dose: 10 mg Bupropion HCl (Wellbutrin Xl -) 150 mg PO DAILY [facility] Last Admin: 05/24/17 09:16 Dose: 150 mg Carvedilol (Coreg -) 6.25 mg PO BID [facility] Last Admin: 05/24/17 09:14 Dose: 6.25 mg Clopidogrel Bisulfate (Plavix -) 75 mg PO DAILY [facility] Last Admin: 05/24/17 09:14 Dose: 75 mg Gabapentin (Neurontin -) 400 mg PO TID [facility] Last Admin: 05/24/17 06:36 Dose: 400 mg Heparin Sodium (Porcine) (Heparin -) 5,000 unit SQ BID [facility] Last Admin: 05/24/17 09:14 Dose: 5,000 unit Azithromycin 500 mg/ Dextrose 250 mls @ 250 mls/hr IVPB DAILY [facility] Last Admin: 05/24/17 09:21 Dose: 250 mls/hr Ceftriaxone Sodium 1 gm/ (Dextrose) 50 mls @ 100 mls/hr IVPB DAILY [facility] Stop: 05/24/17 10:29 Last Admin: 05/24/17 09:21 Dose: 100 mls/hr Isosorbide Mononitrate (Imdur -) 60 mg PO DAILY [facility] Last Admin: 05/24/17 09:14 Dose: 60 mg Methylprednisolone Sodium Succinate (Solu-Medrol -) 40 mg IVPB Q8H-IV [facility] Last Admin: 05/24/17 09:14 Dose: 40 mg Oxycodone HCl (Roxicodone -) 5 mg PO Q8H PRN PRN Reason: PAIN LEVEL 6-10 Last Admin: 05/24/17 00:50 Dose: 5 mg Pantoprazole Sodium (Protonix -) 40 mg PO DAILY [facility] Last Admin: 05/24/17 09:14 Dose: 40 mg Valsartan (Diovan -) 80 mg PO DAILY [facility] Last Admin: 05/24/17 09:14 Dose: 80 mg - Objective Vital Signs: Vital Signs Temperature 97.9 F 05/24/17 06:00 Pulse Rate 61 05/24/17 06:00 Respiratory Rate 20 05/24/17 06:00 Blood Pressure 128/76 05/24/17 06:00 O2 Sat by Pulse Oximetry (%) 98 05/24/17 06:08 Constitutional: Yes: Calm, Thin Eyes: Yes: WNL HENT: Yes: WNL Neck: Yes: WNL Cardiovascular: Yes: Regular Rate and Rhythm, S1, S2 Respiratory: Yes: Wheezes Gastrointestinal: Yes: Normal Bowel Sounds, Soft Extremities: Yes: Amputation (left aka) Edema: No Labs: CBC, BMP 05/23/17 06:15 05/24/17 05:00 INR, PTT INR 1.03 (0.82-1.09) 05/17/17 12:30 Assessment/Plan A/P Acute on Chronic Hypoxic and Hypercapneic Respiratory Failure improving Acute COPD Exacerbation Lung Nodules stable CAD PAD s/p L AKA HTN Hypercholesterolemia Thoracic aortic aneurysm - medrol taper - inhaled bronchodilators standing and PRN - empiric antibiotics - O2 to keep SpO2 >90% - BiPAP as needed - DVT prophylaxis DR MARTÍNEZ Problem List - Problems (1) Acute on chronic respiratory failure with hypoxia and hypercapnia Code(s): J96.21 - ACUTE AND CHRONIC RESPIRATORY FAILURE WITH HYPOXIA; J96.22 - ACUTE AND CHRONIC RESPIRATORY FAILURE WITH HYPERCAPNIA (2) COPD with acute exacerbation Code(s): J44.1 - CHRONIC OBSTRUCTIVE PULMONARY DISEASE W (ACUTE) EXACERBATION (3) CAD (coronary artery disease) Code(s): I25.10 - ATHSCL HEART DISEASE OF [place] CORONARY ARTERY W/O ANG PCTRS (4) PVD (peripheral vascular disease) Code(s): I73.9 - PERIPHERAL VASCULAR DISEASE, UNSPECIFIED
--- NOTE | 2017-05-24 11:01 | PN ---
Progress Note, Physician Chief Complaint: Events noted Less shortness of breath Mild wheezing History of Present Illness: Patient was seen and examined. Awake and alert. Chart was reviewed Denies chest pain, less SOB and productive cough Denies palpitations - Current Medication List Current Medications: Active Medications Acetaminophen (Tylenol -) 325 mg PO Q8H PRN PRN Reason: PAIN Last Admin: 05/24/17 00:50 Dose: 325 mg Albuterol Sulfate (Ventolin 0.083% Nebulizer Soln -) 1 amp NEB Q4H PRN PRN Reason: SHORT OF BREATH/WHEEZING Last Admin: 05/23/17 05:30 Dose: 1 amp Albuterol/Ipratropium (Duoneb -) 1 amp NEB RQID [facility] Last Admin: 05/24/17 07:53 Dose: 1 amp Amlodipine Besylate (Norvasc -) 5 mg PO DAILY [facility] Last Admin: 05/24/17 09:14 Dose: 5 mg Aspirin (Ecotrin -) 81 mg PO DAILY [facility] Last Admin: 05/24/17 09:14 Dose: 81 mg Atorvastatin Calcium (Lipitor -) 10 mg PO HS [facility] Last Admin: 05/23/17 21:43 Dose: 10 mg Bupropion HCl (Wellbutrin Xl -) 150 mg PO DAILY [facility] Last Admin: 05/24/17 09:16 Dose: 150 mg Carvedilol (Coreg -) 6.25 mg PO BID [facility] Last Admin: 05/24/17 09:14 Dose: 6.25 mg Clopidogrel Bisulfate (Plavix -) 75 mg PO DAILY [facility] Last Admin: 05/24/17 09:14 Dose: 75 mg Gabapentin (Neurontin -) 400 mg PO TID [facility] Last Admin: 05/24/17 06:36 Dose: 400 mg Heparin Sodium (Porcine) (Heparin -) 5,000 unit SQ BID [facility] Last Admin: 05/24/17 09:14 Dose: 5,000 unit Azithromycin 500 mg/ Dextrose 250 mls @ 250 mls/hr IVPB DAILY [facility] Last Admin: 05/24/17 09:21 Dose: 250 mls/hr Isosorbide Mononitrate (Imdur -) 60 mg PO DAILY [facility] Last Admin: 05/24/17 09:14 Dose: 60 mg Methylprednisolone Sodium Succinate (Solu-Medrol -) 40 mg IVPB Q12H [facility] Last Admin: 05/24/17 10:08 Dose: Not Given Oxycodone HCl (Roxicodone -) 5 mg PO Q8H PRN PRN Reason: PAIN LEVEL 6-10 Last Admin: 05/24/17 00:50 Dose: 5 mg Pantoprazole Sodium (Protonix -) 40 mg PO DAILY [facility] Last Admin: 05/24/17 09:14 Dose: 40 mg Valsartan (Diovan -) 80 mg PO DAILY [facility] Last Admin: 05/24/17 09:14 Dose: 80 mg - Objective Vital Signs: Vital Signs Temperature 97.9 F 05/24/17 06:00 Pulse Rate 61 05/24/17 06:00 Respiratory Rate 20 05/24/17 06:00 Blood Pressure 128/76 05/24/17 06:00 O2 Sat by Pulse Oximetry (%) 98 05/24/17 06:08 Eyes: Yes: PERRL HENT: Yes: Atraumatic Neck: Yes: Supple Cardiovascular: Yes: Pulse Irregular, S1, S2 Respiratory: Yes: Diminished, Wheezes Gastrointestinal: Yes: Normal Bowel Sounds, Soft. No: Tenderness Edema: No Additional Findings/Remarks: - Review of Systems Constitutional: denies: Chills, Fever Cardiovascular: denies chest pain (+) SOB (-) palpitation Respiratory: reports: Cough and sputum Production Gastrointestinal: denies: Nausea, Vomiting, Diarrhea, Constipation or Abdominal Pain Musculoskeletal: denies: Joint Pain Neurological: denies: Dizziness or Headaches Labs: CBC, BMP 05/23/17 06:15 05/24/17 05:00 Problem List - Problems (1) HTN (hypertension) Code(s): I10 - ESSENTIAL (PRIMARY) HYPERTENSION Qualifiers: Hypertension type: essential hypertension Qualified Code(s): I10 - Essential (primary) hypertension (2) Hypercholesterolemia Code(s): E78.00 - PURE HYPERCHOLESTEROLEMIA, UNSPECIFIED (3) Acute on chronic respiratory failure with hypoxia and hypercapnia Code(s): J96.21 - ACUTE AND CHRONIC RESPIRATORY FAILURE WITH HYPOXIA; J96.22 - ACUTE AND CHRONIC RESPIRATORY FAILURE WITH HYPERCAPNIA (4) Acute respiratory failure with hypoxia and hypercapnia Code(s): J96.01 - ACUTE RESPIRATORY FAILURE WITH HYPOXIA; J96.02 - ACUTE RESPIRATORY FAILURE WITH HYPERCAPNIA (5) CAD (coronary artery disease) Code(s): I25.10 - ATHSCL HEART DISEASE OF [place] CORONARY ARTERY W/O ANG PCTRS Qualifiers: Coronary Disease-Associated Artery/Lesion type: [place] artery [place] vs. transplanted heart: [place] heart Associated angina: without angina Qualified Code(s): I25.10 - Atherosclerotic heart disease of [place] coronary artery without angina pectoris (6) COPD with acute exacerbation Code(s): J44.1 - CHRONIC OBSTRUCTIVE PULMONARY DISEASE W (ACUTE) EXACERBATION (7) History of left above knee amputation Code(s): Z89.612 - ACQUIRED ABSENCE OF LEFT LEG ABOVE KNEE (8) PVD (peripheral vascular disease) Code(s): I73.9 - PERIPHERAL VASCULAR DISEASE, UNSPECIFIED (9) S/P coronary artery stent placement Code(s): Z95.5 - PRESENCE OF CORONARY ANGIOPLASTY IMPLANT AND GRAFT (10) Systolic dysfunction Code(s): I51.9 - HEART DISEASE, UNSPECIFIED (11) Thoracic aortic aneurysm Code(s): I71.2 - THORACIC AORTIC ANEURYSM, WITHOUT RUPTURE Qualifiers: Presence of rupture: without rupture Qualified Code(s): I71.2 - Thoracic aortic aneurysm, without rupture Assessment/Plan 1. Acute on Chronic Hypoxic and Hypercapneic Respiratory Failure improving 2. Acute exacerbation of chronic obstructive airway disease improving 3. CAD s/p [place], PCI (stent), angina pectoris 4. LV systolic dysfunction (moderate), compensated/euvolemic 5. PAD post left AKA 6. Hypertension 7. Hypercholesterolemia 8. Carotid artery disease 9. CKD 10. Stable pulm nodules 11. TAA (5 cm) PLAN: 1. Continue Coreg 6.25 bid, Imdur 60 qd, Norvasc 5 qd and Diovan 80 qd (as tolerated) 2. Continue Lipitor 10 qhs 3. Continue ASA 81 qd and Plavix 75 qd 4. Empiric antibiotic course, IV steroid taper, O2 to keep SpO2 >90% and bronchodilators as tolerated 5. DVT and GI prophylaxis 6. TAA size should be followed closely Further plans are to follow Maxi Kaplan MD
--- NOTE | 2017-05-24 13:01 | PN ---
Progress Note, Physician History of Present Illness: Pt is breathing better, on NC Pt w/o CP, palpitations, abd pain. - Current Medication List Current Medications: Active Medications Acetaminophen (Tylenol -) 325 mg PO Q8H PRN PRN Reason: PAIN Last Admin: 05/24/17 00:50 Dose: 325 mg Albuterol Sulfate (Ventolin 0.083% Nebulizer Soln -) 1 amp NEB Q4H PRN PRN Reason: SHORT OF BREATH/WHEEZING Last Admin: 05/23/17 05:30 Dose: 1 amp Albuterol/Ipratropium (Duoneb -) 1 amp NEB RQID [facility] Last Admin: 05/24/17 12:00 Dose: 1 amp Amlodipine Besylate (Norvasc -) 5 mg PO DAILY [facility] Last Admin: 05/24/17 09:14 Dose: 5 mg Aspirin (Ecotrin -) 81 mg PO DAILY [facility] Last Admin: 05/24/17 09:14 Dose: 81 mg Atorvastatin Calcium (Lipitor -) 10 mg PO HS [facility] Last Admin: 05/23/17 21:43 Dose: 10 mg Bupropion HCl (Wellbutrin Xl -) 150 mg PO DAILY [facility] Last Admin: 05/24/17 09:16 Dose: 150 mg Carvedilol (Coreg -) 6.25 mg PO BID [facility] Last Admin: 05/24/17 09:14 Dose: 6.25 mg Clopidogrel Bisulfate (Plavix -) 75 mg PO DAILY [facility] Last Admin: 05/24/17 09:14 Dose: 75 mg Gabapentin (Neurontin -) 400 mg PO TID [facility] Last Admin: 05/24/17 06:36 Dose: 400 mg Heparin Sodium (Porcine) (Heparin -) 5,000 unit SQ BID [facility] Last Admin: 05/24/17 09:14 Dose: 5,000 unit Azithromycin 500 mg/ Dextrose 250 mls @ 250 mls/hr IVPB DAILY [facility] Last Admin: 05/24/17 09:21 Dose: 250 mls/hr Isosorbide Mononitrate (Imdur -) 60 mg PO DAILY [facility] Last Admin: 05/24/17 09:14 Dose: 60 mg Methylprednisolone Sodium Succinate (Solu-Medrol -) 40 mg IVPB Q12H [facility] Last Admin: 05/24/17 10:08 Dose: Not Given Oxycodone HCl (Roxicodone -) 5 mg PO Q8H PRN PRN Reason: PAIN LEVEL 6-10 Last Admin: 05/24/17 00:50 Dose: 5 mg Pantoprazole Sodium (Protonix -) 40 mg PO DAILY [facility] Last Admin: 05/24/17 09:14 Dose: 40 mg Valsartan (Diovan -) 80 mg PO DAILY [facility] Last Admin: 05/24/17 09:14 Dose: 80 mg - Objective Vital Signs: Vital Signs Temperature 97.9 F 05/24/17 06:00 Pulse Rate 61 05/24/17 06:00 Respiratory Rate 20 05/24/17 06:00 Blood Pressure 128/76 05/24/17 06:00 O2 Sat by Pulse Oximetry (%) 98 05/24/17 09:00 Constitutional: Yes: No Distress, Calm Cardiovascular: Yes: Regular Rate and Rhythm, S1, S2 Respiratory: Yes: Regular, Rhonchi, Wheezes (expiratory in [place] bilaterally) Gastrointestinal: Yes: Normal Bowel Sounds, Soft. No: Tenderness Extremities: Yes: Other (left AKA) Edema: No Neurological: Yes: Alert, Oriented Labs: CBC, BMP 05/23/17 06:15 05/24/17 05:00 INR, PTT INR 1.03 (0.82-1.09) 05/17/17 12:30 Problem List - Problems (1) Acute respiratory failure with hypoxia and hypercapnia Code(s): J96.01 - ACUTE RESPIRATORY FAILURE WITH HYPOXIA; J96.02 - ACUTE RESPIRATORY FAILURE WITH HYPERCAPNIA (2) CAD (coronary artery disease) Code(s): I25.10 - ATHSCL HEART DISEASE OF [place] CORONARY ARTERY W/O ANG PCTRS Qualifiers: Coronary Disease-Associated Artery/Lesion type: [place] artery [place] vs. transplanted heart: [place] heart Associated angina: without angina Qualified Code(s): I25.10 - Atherosclerotic heart disease of [place] coronary artery without angina pectoris (3) PVD (peripheral vascular disease) Code(s): I73.9 - PERIPHERAL VASCULAR DISEASE, UNSPECIFIED (4) History of left above knee amputation Code(s): Z89.612 - ACQUIRED ABSENCE OF LEFT LEG ABOVE KNEE Assessment/Plan BIPAP IV steroids- tappered per Pulmonary Pulmonary, Cardio consults and f/u appreciated GI Prophylaxis DVT Prophylaxis Nicotine replacemnet therapy. AM labs
[2017-05-24] MEDS: ATORVASTATIN CA 10 MG TABLET (FP) PO SCH (21:27)
[2017-05-25] MEDS: GABAPENTIN 400 MG CAPSULE (FP) PO SCH ×3 (06:15→21:37)
--- NOTE | 2017-05-25 07:35 | PN ---
Progress Note, Physician Chief Complaint: feels better less cough less SOB d/w pulm will start tapering steroids - Current Medication List Current Medications: Active Medications Acetaminophen (Tylenol -) 325 mg PO Q8H PRN PRN Reason: PAIN Last Admin: 05/24/17 16:30 Dose: 325 mg Albuterol Sulfate (Ventolin 0.083% Nebulizer Soln -) 1 amp NEB Q4H PRN PRN Reason: SHORT OF BREATH/WHEEZING Last Admin: 05/23/17 05:30 Dose: 1 amp Albuterol/Ipratropium (Duoneb -) 1 amp NEB RQID [facility] Last Admin: 05/24/17 20:55 Dose: 1 amp Amlodipine Besylate (Norvasc -) 5 mg PO DAILY [facility] Last Admin: 05/24/17 09:14 Dose: 5 mg Aspirin (Ecotrin -) 81 mg PO DAILY [facility] Last Admin: 05/24/17 09:14 Dose: 81 mg Atorvastatin Calcium (Lipitor -) 10 mg PO HS [facility] Last Admin: 05/24/17 21:27 Dose: 10 mg Bupropion HCl (Wellbutrin Xl -) 150 mg PO DAILY [facility] Last Admin: 05/24/17 09:16 Dose: 150 mg Carvedilol (Coreg -) 6.25 mg PO BID [facility] Last Admin: 05/24/17 21:27 Dose: 6.25 mg Clopidogrel Bisulfate (Plavix -) 75 mg PO DAILY [facility] Last Admin: 05/24/17 09:14 Dose: 75 mg Gabapentin (Neurontin -) 400 mg PO TID [facility] Last Admin: 05/25/17 06:15 Dose: 400 mg Heparin Sodium (Porcine) (Heparin -) 5,000 unit SQ BID [facility] Last Admin: 05/24/17 21:27 Dose: 5,000 unit Azithromycin 500 mg/ Dextrose 250 mls @ 250 mls/hr IVPB DAILY [facility] Last Admin: 05/24/17 09:21 Dose: 250 mls/hr Isosorbide Mononitrate (Imdur -) 60 mg PO DAILY [facility] Last Admin: 05/24/17 09:14 Dose: 60 mg Methylprednisolone Sodium Succinate (Solu-Medrol -) 40 mg IVPB Q12H [facility] Last Admin: 05/24/17 21:59 Dose: 40 mg Oxycodone HCl (Roxicodone -) 5 mg PO Q8H PRN PRN Reason: PAIN LEVEL 6-10 Last Admin: 05/24/17 16:29 Dose: 5 mg Pantoprazole Sodium (Protonix -) 40 mg PO DAILY [facility] Last Admin: 05/24/17 09:14 Dose: 40 mg Valsartan (Diovan -) 80 mg PO DAILY [facility] Last Admin: 05/24/17 09:14 Dose: 80 mg - Objective Vital Signs: Vital Signs Temperature 98.6 F 05/25/17 05:33 Pulse Rate 60 05/25/17 05:33 Respiratory Rate 18 05/25/17 05:33 Blood Pressure 142/86 05/25/17 05:33 O2 Sat by Pulse Oximetry (%) 98 05/24/17 20:52 Constitutional: Yes: No Distress, Calm Eyes: Yes: Conjunctiva Clear HENT: Yes: Atraumatic Neck: Yes: Supple Cardiovascular: Yes: Regular Rate and Rhythm Respiratory: Yes: CTA Bilaterally Gastrointestinal: Yes: Soft. No: Distention, Tenderness Genitourinary: No: CVA Tenderness - Left, CVA Tenderness - Right Musculoskeletal: No: Joint Stiffness, Joint Swelling Extremities: Yes: Other ( BKA). No: Cold, Cool Edema: No Integumentary: No: Rash, Venous Stasis Changes Neurological: Yes: WNL, Alert, Oriented ...Motor Strength: WNL Psychiatric: Yes: WNL, Alert, Oriented. No: Agitated, Suicidal Ideation Labs: CBC, BMP 05/24/17 05:00 INR, PTT INR 1.03 (0.82-1.09) 05/17/17 12:30 - ....Imaging Other: Report Reviewed Assessment/Plan 82 yo F with h/o HTN, PVD s/p left leg amputation BK, COPD, BIBA with SOB, hypoxic on BIPAP, admitted with acute on chronic COPD exacerbation and possible PNA. h/o ASHD arrythmia, r/o CHF exacerbation. cardio, pulm f/u IV ATB nebs, Combivent taper steroids per pulm continue previous meds BIpap prn; O2 continuous falls decubs DVT pfx d./w pt and staff prgnosis guarded
[2017-05-25] MEDS: ALBUTEROL SO4 2.5/IPRATROPIUM 0.5 INH SOL 3 ML VIAL.NEB. NEB SCH ×4 (08:30→20:58)
[2017-05-25 08:54] LABS: HEMATOCRIT 38.9 % (32.4-45.2); HEMOGLOBIN 12.5 GM/dL (10.7-15.3); MCH 26.7 pg (25.7-33.7); MCHC 32.2 g/dl (32.0-36.0); MEAN CELL VOLUME 82.9 fl (80-96); MEAN PLT VOLUME 10.6 fl (7.5-11.1); PLATELET COUNT 117 K/MM3 (134-434); RDW 14.9 % (11.6-15.6); WHITE BLOOD COUNT 9.3 K/mm3 (4.0-10.0)
[2017-05-25] MEDS ORDERED: PT OWN MED DRAWER 7, Y5N ONE ×2 (09:08→09:30)
[2017-05-25] MEDS: CLOPIDOGREL BISULFATE 75 MG TABLET (FP) PO SCH (09:22)
[2017-05-25] MEDS: PANTOPRAZOLE 40 MG TABLET (FP) PO SCH (09:22)
[2017-05-25] MEDS: CARVEDILOL 6.25 MG TABLET (FP) PO SCH ×2 (09:22→21:36)
[2017-05-25] MEDS: amLODIPine BESYLATE 5 MG TABLET (FP) PO SCH (09:22)
[2017-05-25] MEDS: VALSARTAN 80 MG TABLET (UD) PO SCH (09:23)
[2017-05-25] MEDS: HEPARIN NA (PORCINE) 5,000 UNITS/ML 1ML VIAL SQ SCH ×2 (09:23→21:36)
[2017-05-25] MEDS: ISOSORBIDE MONONITRATE 60 MG TAB.SR.24H (FP) PO SCH (09:23)
[2017-05-25] MEDS: ASPIRIN COATED 81 MG TABLET.EC PO SCH (09:23)
[2017-05-25] MEDS: AZITHROMYCIN IVPB 500 MG in DEXTROSE 5%-WATER - 250 ML IVPB SCH (09:24)
[2017-05-25] MEDS: methylPREDNISolone NA SUCC 40 MG/1 ML VIAL IVPB SCH ×2 (09:24→21:37)
--- NOTE | 2017-05-25 09:40 | PN ---
Progress Note, Physician Chief Complaint: Events noted Persistent shortness of breath, but improving (+) cough Mild wheezing History of Present Illness: Patient was seen and examined. Awake and alert. Chart was reviewed Denies chest pain, less SOB and productive cough Denies palpitations - Current Medication List Current Medications: Active Medications Acetaminophen (Tylenol -) 325 mg PO Q8H PRN PRN Reason: PAIN Last Admin: 05/24/17 16:30 Dose: 325 mg Albuterol Sulfate (Ventolin 0.083% Nebulizer Soln -) 1 amp NEB Q4H PRN PRN Reason: SHORT OF BREATH/WHEEZING Last Admin: 05/23/17 05:30 Dose: 1 amp Albuterol/Ipratropium (Duoneb -) 1 amp NEB RQID [facility] Last Admin: 05/25/17 08:30 Dose: 1 amp Amlodipine Besylate (Norvasc -) 5 mg PO DAILY [facility] Last Admin: 05/25/17 09:22 Dose: 5 mg Aspirin (Ecotrin -) 81 mg PO DAILY [facility] Last Admin: 05/25/17 09:23 Dose: 81 mg Atorvastatin Calcium (Lipitor -) 10 mg PO HS [facility] Last Admin: 05/24/17 21:27 Dose: 10 mg Bupropion HCl (Wellbutrin Xl -) 150 mg PO DAILY [facility] Last Admin: 05/25/17 09:31 Dose: 150 mg Carvedilol (Coreg -) 6.25 mg PO BID [facility] Last Admin: 05/25/17 09:22 Dose: 6.25 mg Clopidogrel Bisulfate (Plavix -) 75 mg PO DAILY [facility] Last Admin: 05/25/17 09:22 Dose: 75 mg Gabapentin (Neurontin -) 400 mg PO TID [facility] Last Admin: 05/25/17 06:15 Dose: 400 mg Heparin Sodium (Porcine) (Heparin -) 5,000 unit SQ BID [facility] Last Admin: 05/25/17 09:23 Dose: 5,000 unit Azithromycin 500 mg/ Dextrose 250 mls @ 250 mls/hr IVPB DAILY [facility] Last Admin: 05/25/17 09:24 Dose: 250 mls/hr Isosorbide Mononitrate (Imdur -) 60 mg PO DAILY [facility] Last Admin: 05/25/17 09:23 Dose: 60 mg Methylprednisolone Sodium Succinate (Solu-Medrol -) 40 mg IVPB Q12H [facility] Last Admin: 05/25/17 09:24 Dose: 40 mg Oxycodone HCl (Roxicodone -) 5 mg PO Q8H PRN PRN Reason: PAIN LEVEL 6-10 Last Admin: 05/24/17 16:29 Dose: 5 mg Pantoprazole Sodium (Protonix -) 40 mg PO DAILY [facility] Last Admin: 05/25/17 09:22 Dose: 40 mg Valsartan (Diovan -) 80 mg PO DAILY [facility] Last Admin: 05/25/17 09:23 Dose: 80 mg - Objective Vital Signs: Vital Signs Temperature 98.6 F 05/25/17 05:33 Pulse Rate 60 05/25/17 05:33 Respiratory Rate 20 05/25/17 09:00 Blood Pressure 142/86 05/25/17 05:33 O2 Sat by Pulse Oximetry (%) 100 05/25/17 09:00 HENT: Yes: Atraumatic Neck: Yes: Supple Cardiovascular: Yes: Regular Rate and Rhythm, S1, S2 Respiratory: Yes: Cough, Diminished, SOB, Wheezes Gastrointestinal: Yes: Normal Bowel Sounds, Soft. No: Tenderness Extremities: Yes: Amputation Edema: No Additional Findings/Remarks: - Review of Systems Constitutional: denies: Chills, Fever Cardiovascular: denies chest pain (+) SOB (-) palpitation Respiratory: reports: Cough and sputum Production Gastrointestinal: denies: Nausea, Vomiting, Diarrhea, Constipation or Abdominal Pain Musculoskeletal: denies: Joint Pain Neurological: denies: Dizziness or Headaches Labs: CBC, BMP 05/25/17 06:00 05/24/17 05:00 Problem List - Problems (1) HTN (hypertension) Code(s): I10 - ESSENTIAL (PRIMARY) HYPERTENSION Qualifiers: Hypertension type: essential hypertension Qualified Code(s): I10 - Essential (primary) hypertension (2) Hypercholesterolemia Code(s): E78.00 - PURE HYPERCHOLESTEROLEMIA, UNSPECIFIED (3) Acute on chronic respiratory failure with hypoxia and hypercapnia Code(s): J96.21 - ACUTE AND CHRONIC RESPIRATORY FAILURE WITH HYPOXIA; J96.22 - ACUTE AND CHRONIC RESPIRATORY FAILURE WITH HYPERCAPNIA (4) Acute respiratory failure with hypoxia and hypercapnia Code(s): J96.01 - ACUTE RESPIRATORY FAILURE WITH HYPOXIA; J96.02 - ACUTE RESPIRATORY FAILURE WITH HYPERCAPNIA (5) CAD (coronary artery disease) Code(s): I25.10 - ATHSCL HEART DISEASE OF [place] CORONARY ARTERY W/O ANG PCTRS Qualifiers: Coronary Disease-Associated Artery/Lesion type: [place] artery [place] vs. transplanted heart: [place] heart Associated angina: without angina Qualified Code(s): I25.10 - Atherosclerotic heart disease of [place] coronary artery without angina pectoris (6) COPD with acute exacerbation Code(s): J44.1 - CHRONIC OBSTRUCTIVE PULMONARY DISEASE W (ACUTE) EXACERBATION (7) History of left above knee amputation Code(s): Z89.612 - ACQUIRED ABSENCE OF LEFT LEG ABOVE KNEE (8) PVD (peripheral vascular disease) Code(s): I73.9 - PERIPHERAL VASCULAR DISEASE, UNSPECIFIED (9) S/P coronary artery stent placement Code(s): Z95.5 - PRESENCE OF CORONARY ANGIOPLASTY IMPLANT AND GRAFT (10) Systolic dysfunction Code(s): I51.9 - HEART DISEASE, UNSPECIFIED (11) Thoracic aortic aneurysm Code(s): I71.2 - THORACIC AORTIC ANEURYSM, WITHOUT RUPTURE Qualifiers: Presence of rupture: without rupture Qualified Code(s): I71.2 - Thoracic aortic aneurysm, without rupture Assessment/Plan 1. Acute on chronic hypoxic and hypercapneic respiratory failure improving 2. Acute exacerbation of chronic obstructive airway disease improving 3. CAD s/p MA, PCI (stent), angina pectoris 4. LV systolic dysfunction (moderate), compensated/euvolemic 5. PAD post left AKA 6. Hypertension 7. Hypercholesterolemia 8. Carotid artery disease 9. CKD 10. Stable pulmonary nodules 11. TAA (5 cm) PLAN: 1. Continue Coreg 6.25 bid, Imdur 60 qd, Norvasc 5 qd and Diovan 80 qd (as tolerated) 2. Continue Lipitor 10 qhs 3. Continue ASA 81 qd and Plavix 75 qd 4. Empiric antibiotic course, IV steroid taper, O2 to keep SpO2 >90% and bronchodilators as tolerated 5. DVT and GI prophylaxis 6. TAA size should be followed closely and can be done as outpatient Further plans are to follow Maxi Kaplan MD
--- NOTE | 2017-05-25 10:24 | PN ---
Progress Note, Physician History of Present Illness: pulmonary alert,feeling better,sob continues to improve,less cough - Current Medication List Current Medications: Active Medications Acetaminophen (Tylenol -) 325 mg PO Q8H PRN PRN Reason: PAIN Last Admin: 05/24/17 16:30 Dose: 325 mg Albuterol Sulfate (Ventolin 0.083% Nebulizer Soln -) 1 amp NEB Q4H PRN PRN Reason: SHORT OF BREATH/WHEEZING Last Admin: 05/23/17 05:30 Dose: 1 amp Albuterol/Ipratropium (Duoneb -) 1 amp NEB RQID [facility] Last Admin: 05/25/17 08:30 Dose: 1 amp Amlodipine Besylate (Norvasc -) 5 mg PO DAILY [facility] Last Admin: 05/25/17 09:22 Dose: 5 mg Aspirin (Ecotrin -) 81 mg PO DAILY [facility] Last Admin: 05/25/17 09:23 Dose: 81 mg Atorvastatin Calcium (Lipitor -) 10 mg PO HS [facility] Last Admin: 05/24/17 21:27 Dose: 10 mg Bupropion HCl (Wellbutrin Xl -) 150 mg PO DAILY [facility] Last Admin: 05/25/17 09:31 Dose: 150 mg Carvedilol (Coreg -) 6.25 mg PO BID [facility] Last Admin: 05/25/17 09:22 Dose: 6.25 mg Clopidogrel Bisulfate (Plavix -) 75 mg PO DAILY [facility] Last Admin: 05/25/17 09:22 Dose: 75 mg Gabapentin (Neurontin -) 400 mg PO TID [facility] Last Admin: 05/25/17 06:15 Dose: 400 mg Heparin Sodium (Porcine) (Heparin -) 5,000 unit SQ BID [facility] Last Admin: 05/25/17 09:23 Dose: 5,000 unit Azithromycin 500 mg/ Dextrose 250 mls @ 250 mls/hr IVPB DAILY [facility] Last Admin: 05/25/17 09:24 Dose: 250 mls/hr Isosorbide Mononitrate (Imdur -) 60 mg PO DAILY [facility] Last Admin: 05/25/17 09:23 Dose: 60 mg Methylprednisolone Sodium Succinate (Solu-Medrol -) 40 mg IVPB Q12H [facility] Last Admin: 05/25/17 09:24 Dose: 40 mg Oxycodone HCl (Roxicodone -) 5 mg PO Q8H PRN PRN Reason: PAIN LEVEL 6-10 Last Admin: 05/24/17 16:29 Dose: 5 mg Pantoprazole Sodium (Protonix -) 40 mg PO DAILY [facility] Last Admin: 05/25/17 09:22 Dose: 40 mg Valsartan (Diovan -) 80 mg PO DAILY [facility] Last Admin: 05/25/17 09:23 Dose: 80 mg - Objective Vital Signs: Vital Signs Temperature 98.6 F 05/25/17 05:33 Pulse Rate 60 05/25/17 05:33 Respiratory Rate 20 05/25/17 09:00 Blood Pressure 142/86 05/25/17 05:33 O2 Sat by Pulse Oximetry (%) 100 05/25/17 09:00 Constitutional: Yes: Calm, Thin Eyes: Yes: WNL HENT: Yes: WNL Neck: Yes: WNL Cardiovascular: Yes: Regular Rate and Rhythm, S1, S2 Respiratory: Yes: Wheezes (few scattered sonia wheezes) Gastrointestinal: Yes: Normal Bowel Sounds, Soft Extremities: Yes: Amputation (left aka) Edema: No Labs: CBC, BMP 05/25/17 06:00 Assessment/Plan A/P Acute on Chronic Hypoxic and Hypercapneic Respiratory Failure improving Acute COPD Exacerbation Lung Nodules stable CAD PAD s/p L AKA HTN Hypercholesterolemia Thoracic aortic aneurysm - medrol taper,start prednisone in am if pt cont to improve - inhaled bronchodilators standing and PRN - empiric antibiotics - O2 to keep SpO2 >90% - BiPAP as needed - DVT prophylaxis DR MARTÍNEZ Problem List - Problems (1) Acute on chronic respiratory failure with hypoxia and hypercapnia Code(s): J96.21 - ACUTE AND CHRONIC RESPIRATORY FAILURE WITH HYPOXIA; J96.22 - ACUTE AND CHRONIC RESPIRATORY FAILURE WITH HYPERCAPNIA (2) COPD with acute exacerbation Code(s): J44.1 - CHRONIC OBSTRUCTIVE PULMONARY DISEASE W (ACUTE) EXACERBATION (3) CAD (coronary artery disease) Code(s): I25.10 - ATHSCL HEART DISEASE OF [place] CORONARY ARTERY W/O ANG PCTRS (4) PVD (peripheral vascular disease) Code(s): I73.9 - PERIPHERAL VASCULAR DISEASE, UNSPECIFIED
[2017-05-25] MEDS: ACETAMINOPHEN 325 MG TABLET (FP) PO PRN (17:42)
[2017-05-25] MEDS: oxyCODONE HCL 5 MG TABLET PO PRN (17:43)
[2017-05-25] MEDS: ATORVASTATIN CA 10 MG TABLET (FP) PO SCH (21:36)
[2017-05-26] MEDS: GABAPENTIN 400 MG CAPSULE (FP) PO SCH ×2 (06:03→13:30)
[2017-05-26 06:21] VITALS: TEMP 98.7
[2017-05-26] MEDS: ALBUTEROL SO4 2.5/IPRATROPIUM 0.5 INH SOL 3 ML VIAL.NEB. NEB SCH ×2 (07:31→11:12)
[2017-05-26] MEDS ORDERED: PT OWN MED DRAWER 7, Y5N ONE ×2 (07:57→09:54)
--- NOTE | 2017-05-26 09:43 | DS ---
Physical Examination Vital Signs: Vital Signs Temperature 98.7 F 05/26/17 08:49 Pulse Rate 73 05/26/17 09:24 Respiratory Rate 18 05/26/17 08:49 Blood Pressure 173/81 05/26/17 08:49 O2 Sat by Pulse Oximetry (%) 94 L 05/26/17 09:24 Findings/Remarks: Pt is felling better, less cough. Pt w/o SOB, CP, palpitations. Constitutional: Yes: No Distress, Calm Cardiovascular: Yes: Regular Rate and Rhythm, S1, S2 Respiratory: Yes: Regular, Rhonchi (decreased) Gastrointestinal: Yes: Normal Bowel Sounds, Soft. No: Tenderness Extremities: Yes: Amputation (left AKA) Edema: No (of right leg) Neurological: Yes: Alert, Oriented Labs: CBC, BMP 05/25/17 06:00 05/24/17 05:00 Discharge Summary Reason For Visit: RESPIRATORY FAILURE WITH HYPERCAPNIA Current Active Problems Acute on chronic respiratory failure with hypoxia and hypercapnia (Acute) Acute respiratory failure with hypoxia and hypercapnia (Acute) CAD (coronary artery disease) (Acute) COPD with acute exacerbation (Acute) HTN (hypertension) (Acute) History of left above knee amputation (Acute) Hypercapnic respiratory failure (Acute) Hypercholesterolemia (Acute) PVD (peripheral vascular disease) (Acute) S/P coronary artery stent placement (Acute) Systolic dysfunction (Acute) Thoracic aortic aneurysm (Acute) Procedures: Principal: Chest CT scan. CXR Hospital Course: Pt came to ER with dry cough, SOB, wheezing for couple of days, noticed to have acute respiratory failure. acute COPD exacerbation, started on IV steroids, admitted to ICU for monitoring. Pt was seen in consult by CCM/ pulmonary (Dr. Ortega / [place]). She improved slowly, requiring slow steroid mat. Pt was also evaluated by Cardiology (Dr. Kaplan/ Tasha). Pt would be HI'ed home today on O2 supplementation, with f/u with Pulmonary, Cardio and Vasc Sx (for fusiform abdominal aortic aneurysm; pt is seen by Dr. Lundberg at [facility]). Condition: Fair - Instructions Diet, Activity, Other Instructions: Low salt, cholesterol. Use Oxygen, via nasal cannula, all the time (at rest, activity, night). Make appointment with Dr. Lundberg. Referrals: Osmel Smith MD [Staff Physician] - (within one week. Please call for appointment) Maxi Kaplan MD [Staff Physician] - (as scheduled) Barry Vazquez MD [Staff Physician] - (within one week. Please call for appointment) Disposition: HOME - Home Medications Comprehensive Discharge Medication List: Ambulatory Orders See Discharge medication list. Prednisone (10 mg tablet) directions: take 4 tablets daily for 3 days, then take 3 tablets daily for 3 days, then take 2 tablets daily for 3 days, then take 1 tablet daily for 3 days.
[2017-05-26] MEDS: methylPREDNISolone NA SUCC 40 MG/1 ML VIAL IVPB SCH (09:50)
[2017-05-26] MEDS: PANTOPRAZOLE 40 MG TABLET (FP) PO SCH (09:50)
[2017-05-26] MEDS: ISOSORBIDE MONONITRATE 60 MG TAB.SR.24H (FP) PO SCH (09:50)
[2017-05-26] MEDS: CLOPIDOGREL BISULFATE 75 MG TABLET (FP) PO SCH (09:50)
[2017-05-26] MEDS: amLODIPine BESYLATE 5 MG TABLET (FP) PO SCH (09:52)
[2017-05-26] MEDS: CARVEDILOL 6.25 MG TABLET (FP) PO SCH (09:52)
[2017-05-26] MEDS: HEPARIN NA (PORCINE) 5,000 UNITS/ML 1ML VIAL SQ SCH (09:53)
[2017-05-26] MEDS: VALSARTAN 80 MG TABLET (UD) PO SCH (09:53)
[2017-05-26] MEDS: ASPIRIN COATED 81 MG TABLET.EC PO SCH (09:53)
[2017-05-26] MEDS: AZITHROMYCIN IVPB 500 MG in DEXTROSE 5%-WATER - 250 ML IVPB SCH (10:03)
--- NOTE | 2017-05-26 10:16 | PN ---
Progress Note, Physician Chief Complaint: Events noted (+) cough Mild wheezing Improved History of Present Illness: Patient was seen and examined. Awake and alert. Chart was reviewed Denies chest pain, less SOB and productive cough Denies palpitations Feels better - Current Medication List Current Medications: Active Medications Acetaminophen (Tylenol -) 325 mg PO Q8H PRN PRN Reason: PAIN Last Admin: 05/25/17 17:42 Dose: 325 mg Albuterol Sulfate (Ventolin 0.083% Nebulizer Soln -) 1 amp NEB Q4H PRN PRN Reason: SHORT OF BREATH/WHEEZING Last Admin: 05/23/17 05:30 Dose: 1 amp Albuterol/Ipratropium (Duoneb -) 1 amp NEB RQID [facility] Last Admin: 05/26/17 07:31 Dose: 1 amp Amlodipine Besylate (Norvasc -) 5 mg PO DAILY [facility] Last Admin: 05/26/17 09:52 Dose: 5 mg Aspirin (Ecotrin -) 81 mg PO DAILY [facility] Last Admin: 05/26/17 09:53 Dose: 81 mg Atorvastatin Calcium (Lipitor -) 10 mg PO HS [facility] Last Admin: 05/25/17 21:36 Dose: 10 mg Bupropion HCl (Wellbutrin Xl -) 150 mg PO DAILY [facility] Last Admin: 05/26/17 09:55 Dose: 150 mg Carvedilol (Coreg -) 6.25 mg PO BID [facility] Last Admin: 05/26/17 09:52 Dose: 6.25 mg Clopidogrel Bisulfate (Plavix -) 75 mg PO DAILY [facility] Last Admin: 05/26/17 09:50 Dose: 75 mg Gabapentin (Neurontin -) 400 mg PO TID [facility] Last Admin: 05/26/17 06:03 Dose: 400 mg Heparin Sodium (Porcine) (Heparin -) 5,000 unit SQ BID [facility] Last Admin: 05/26/17 09:53 Dose: 5,000 unit Azithromycin 500 mg/ Dextrose 250 mls @ 250 mls/hr IVPB DAILY [facility] Last Admin: 05/26/17 10:03 Dose: 250 mls/hr Isosorbide Mononitrate (Imdur -) 60 mg PO DAILY [facility] Last Admin: 05/26/17 09:50 Dose: 60 mg Methylprednisolone Sodium Succinate (Solu-Medrol -) 40 mg IVPB Q12H [facility] Last Admin: 05/26/17 09:50 Dose: 40 mg Oxycodone HCl (Roxicodone -) 5 mg PO Q8H PRN PRN Reason: PAIN LEVEL 6-10 Last Admin: 05/25/17 17:43 Dose: 5 mg Pantoprazole Sodium (Protonix -) 40 mg PO DAILY [facility] Last Admin: 05/26/17 09:50 Dose: 40 mg Valsartan (Diovan -) 80 mg PO DAILY [facility] Last Admin: 05/26/17 09:53 Dose: 80 mg - Objective Vital Signs: Vital Signs Temperature 98.7 F 05/26/17 08:49 Pulse Rate 73 05/26/17 09:24 Respiratory Rate 18 05/26/17 08:49 Blood Pressure 173/81 05/26/17 08:49 O2 Sat by Pulse Oximetry (%) 94 L 05/26/17 09:24 HENT: Yes: Atraumatic Neck: Yes: Supple Cardiovascular: Yes: Regular Rate and Rhythm, S1, S2 Respiratory: Yes: Diminished, Wheezes Gastrointestinal: Yes: Normal Bowel Sounds, Soft. No: Tenderness Extremities: Yes: Amputation Edema: No Additional Findings/Remarks: - Review of Systems Constitutional: denies: Chills, Fever Cardiovascular: denies chest pain (+) SOB (-) palpitation Respiratory: reports: Cough and sputum Production Gastrointestinal: denies: Nausea, Vomiting, Diarrhea, Constipation or Abdominal Pain Musculoskeletal: denies: Joint Pain Neurological: denies: Dizziness or Headaches Labs: CBC, BMP 05/25/17 06:00 05/24/17 05:00 INR, PTT INR 1.03 (0.82-1.09) 05/17/17 12:30 Problem List - Problems (1) HTN (hypertension) Code(s): I10 - ESSENTIAL (PRIMARY) HYPERTENSION Qualifiers: Hypertension type: essential hypertension Qualified Code(s): I10 - Essential (primary) hypertension (2) Hypercholesterolemia Code(s): E78.00 - PURE HYPERCHOLESTEROLEMIA, UNSPECIFIED (3) Acute on chronic respiratory failure with hypoxia and hypercapnia Code(s): J96.21 - ACUTE AND CHRONIC RESPIRATORY FAILURE WITH HYPOXIA; J96.22 - ACUTE AND CHRONIC RESPIRATORY FAILURE WITH HYPERCAPNIA (4) Acute respiratory failure with hypoxia and hypercapnia Code(s): J96.01 - ACUTE RESPIRATORY FAILURE WITH HYPOXIA; J96.02 - ACUTE RESPIRATORY FAILURE WITH HYPERCAPNIA (5) CAD (coronary artery disease) Code(s): I25.10 - ATHSCL HEART DISEASE OF [place] CORONARY ARTERY W/O ANG PCTRS Qualifiers: Coronary Disease-Associated Artery/Lesion type: [place] artery [place] vs. transplanted heart: [place] heart Associated angina: without angina Qualified Code(s): I25.10 - Atherosclerotic heart disease of [place] coronary artery without angina pectoris (6) COPD with acute exacerbation Code(s): J44.1 - CHRONIC OBSTRUCTIVE PULMONARY DISEASE W (ACUTE) EXACERBATION (7) History of left above knee amputation Code(s): Z89.612 - ACQUIRED ABSENCE OF LEFT LEG ABOVE KNEE (8) PVD (peripheral vascular disease) Code(s): I73.9 - PERIPHERAL VASCULAR DISEASE, UNSPECIFIED (9) S/P coronary artery stent placement Code(s): Z95.5 - PRESENCE OF CORONARY ANGIOPLASTY IMPLANT AND GRAFT (10) Systolic dysfunction Code(s): I51.9 - HEART DISEASE, UNSPECIFIED (11) Thoracic aortic aneurysm Code(s): I71.2 - THORACIC AORTIC ANEURYSM, WITHOUT RUPTURE Qualifiers: Presence of rupture: without rupture Qualified Code(s): I71.2 - Thoracic aortic aneurysm, without rupture Assessment/Plan 1. Acute on chronic hypoxic and hypercapneic respiratory failure improving 2. Acute exacerbation of chronic obstructive airway disease improving 3. CAD s/p OR, PCI (stent), angina pectoris 4. LV systolic dysfunction (moderate), compensated/euvolemic 5. PAD post left AKA 6. Hypertension 7. Hypercholesterolemia 8. Carotid artery disease 9. CKD 10. Stable pulmonary nodules 11. TAA (5 cm) PLAN: 1. Continue Coreg 6.25 bid, Imdur 60 qd, Norvasc 5 qd and Diovan 80 qd (as tolerated) 2. Continue Lipitor 10 qhs 3. Continue ASA 81 qd and Plavix 75 qd 4. Empiric antibiotic course, steroid taper, O2 to keep SpO2 >90% and bronchodilators as tolerated 5. DVT and GI prophylaxis 6. TAA size should be followed closely and can be done as outpatient Further plans are to follow. Discharge planning as per PMD Maxi Kaplan MD
--- NOTE | 2017-05-26 11:12 | PN ---
Progress Note, Physician History of Present Illness: PULMONARY ALERT,FEELING BETTER,DYSPNEA IMPROVING - Current Medication List Current Medications: Active Medications Acetaminophen (Tylenol -) 325 mg PO Q8H PRN PRN Reason: PAIN Last Admin: 05/25/17 17:42 Dose: 325 mg Albuterol Sulfate (Ventolin 0.083% Nebulizer Soln -) 1 amp NEB Q4H PRN PRN Reason: SHORT OF BREATH/WHEEZING Last Admin: 05/23/17 05:30 Dose: 1 amp Albuterol/Ipratropium (Duoneb -) 1 amp NEB RQID [facility] Last Admin: 05/26/17 07:31 Dose: 1 amp Amlodipine Besylate (Norvasc -) 5 mg PO DAILY [facility] Last Admin: 05/26/17 09:52 Dose: 5 mg Aspirin (Ecotrin -) 81 mg PO DAILY [facility] Last Admin: 05/26/17 09:53 Dose: 81 mg Atorvastatin Calcium (Lipitor -) 10 mg PO HS [facility] Last Admin: 05/25/17 21:36 Dose: 10 mg Bupropion HCl (Wellbutrin Xl -) 150 mg PO DAILY [facility] Last Admin: 05/26/17 09:55 Dose: 150 mg Carvedilol (Coreg -) 6.25 mg PO BID [facility] Last Admin: 05/26/17 09:52 Dose: 6.25 mg Clopidogrel Bisulfate (Plavix -) 75 mg PO DAILY [facility] Last Admin: 05/26/17 09:50 Dose: 75 mg Gabapentin (Neurontin -) 400 mg PO TID [facility] Last Admin: 05/26/17 06:03 Dose: 400 mg Heparin Sodium (Porcine) (Heparin -) 5,000 unit SQ BID [facility] Last Admin: 05/26/17 09:53 Dose: 5,000 unit Azithromycin 500 mg/ Dextrose 250 mls @ 250 mls/hr IVPB DAILY [facility] Last Admin: 05/26/17 10:03 Dose: 250 mls/hr Isosorbide Mononitrate (Imdur -) 60 mg PO DAILY [facility] Last Admin: 05/26/17 09:50 Dose: 60 mg Methylprednisolone Sodium Succinate (Solu-Medrol -) 40 mg IVPB Q12H [facility] Last Admin: 05/26/17 09:50 Dose: 40 mg Oxycodone HCl (Roxicodone -) 5 mg PO Q8H PRN PRN Reason: PAIN LEVEL 6-10 Last Admin: 05/25/17 17:43 Dose: 5 mg Pantoprazole Sodium (Protonix -) 40 mg PO DAILY [facility] Last Admin: 05/26/17 09:50 Dose: 40 mg Valsartan (Diovan -) 80 mg PO DAILY [facility] Last Admin: 05/26/17 09:53 Dose: 80 mg - Objective Vital Signs: Vital Signs Temperature 98.7 F 05/26/17 08:49 Pulse Rate 76 05/26/17 10:47 Respiratory Rate 20 05/26/17 10:47 Blood Pressure 151/96 05/26/17 10:47 O2 Sat by Pulse Oximetry (%) 94 L 05/26/17 09:24 Constitutional: Yes: Calm, Thin Eyes: Yes: WNL HENT: Yes: WNL Neck: Yes: WNL Cardiovascular: Yes: Regular Rate and Rhythm, S1, S2 Respiratory: Yes: Wheezes (FEW SCATTERED MARTHA WHEEZES) Gastrointestinal: Yes: Normal Bowel Sounds, Soft Extremities: Yes: WNL Edema: No Labs: CBC, BMP Assessment/Plan A/P Acute on Chronic Hypoxic and Hypercapneic Respiratory Failure improving Acute COPD Exacerbation Lung Nodules stable CAD PAD s/p L AKA HTN Hypercholesterolemia Thoracic aortic aneurysm - prednisone 60 mg daily with taper - inhaled bronchodilators standing and PRN - empiric antibiotics - O2 to keep SpO2 >90% - BiPAP as needed - DVT prophylaxis - home o2 - outpatient pulmonary rehab DR MARTÍNEZ Problem List - Problems (1) Acute on chronic respiratory failure with hypoxia and hypercapnia Code(s): J96.21 - ACUTE AND CHRONIC RESPIRATORY FAILURE WITH HYPOXIA; J96.22 - ACUTE AND CHRONIC RESPIRATORY FAILURE WITH HYPERCAPNIA (2) COPD with acute exacerbation Code(s): J44.1 - CHRONIC OBSTRUCTIVE PULMONARY DISEASE W (ACUTE) EXACERBATION (3) CAD (coronary artery disease) Code(s): I25.10 - ATHSCL HEART DISEASE OF [place] CORONARY ARTERY W/O ANG PCTRS (4) PVD (peripheral vascular disease) Code(s): I73.9 - PERIPHERAL VASCULAR DISEASE, UNSPECIFIED
[2017-05-26 11:21] VITALS: BP 139/76; PULSE 69
== END 2017-05-26 13:46 | disposition home or self-care (01) | DRG 189 ==
LOC: JER 12:00 → JERBED 15:22 → J4W 05-19 17:15
PROVIDERS: ADMIT Specialist; ATTEND Specialist
PROC: 5A09557 Assistance with Respiratory Ventilation, Greater than 96 Consecutive Hours, Continuous Positive Airway Pressure (ICD-10-PCS; principal; 2017-05-17)
DX: J96.21 Acute and chronic respiratory failure with hypoxia (principal); J44.1 Chronic obstructive pulmonary disease with (acute) exacerbation; I50.1 Left ventricular failure, unspecified; I25.10 Atherosclerotic heart disease of native coronary artery without angina pectoris; I73.9 Peripheral vascular disease, unspecified; J96.22 Acute and chronic respiratory failure with hypercapnia; I71.2 Thoracic aortic aneurysm, without rupture; I25.119 Atherosclerotic heart disease of native coronary artery with unspecified angina pectoris; Z98.61 Coronary angioplasty status; I12.9 Hypertensive chronic kidney disease with stage 1 through stage 4 chronic kidney disease, or unspecified chronic kidney disease; N18.9 Chronic kidney disease, unspecified; I65.29 Occlusion and stenosis of unspecified carotid artery; R91.1 Solitary pulmonary nodule; K21.9 Gastro-esophageal reflux disease without esophagitis; E78.00 Pure hypercholesterolemia, unspecified
CPT/HCPCS: 36415; 36600; 71045-TC-FY; 71250-TC; 80048; 80053; 81003; 81015; 82375; 82550; 82553; 82803; 83050; 83605; 83735; 83880; 84100; 84484; 85025; 85027; 85610; 87040; 93005; 93010; 94640; 94660; 94761; 97116-GP; 97161-GP; 99285-25; J1644; J7030

== ENCOUNTER 2017-06-05 13:32 | Emergency (ER) | payer OTHER ==
[2017-06-05 13:42] VITALS: BP 151/64; PULSE 60; TEMP 98.1; BMI 21.0
--- NOTE | 2017-06-05 14:56 | PDOC ---
History of Present Illness <Antonio Sandoval - Last Filed: 06/05/17 16:26> - General History Source: Patient Exam Limitations: No Limitations - History of Present Illness Initial Comments: 06/05/17 17:02 The patient is a 82 year old female, with a significant past medical history of L Breast CA, CAD s/p [place] (2005), HTN, HLD who presents to the emergency department with increased RLE pain and swelling for the past 3 days. Patient reports lower extremity swelling is normal however has progressively worsened. Patient reports edema has not resolved and was sent to the ED by PCP for r/o DVT. Patient denies chest pain, palpitations, diaphoresis, headache or dizziness. Patient denies fever, chills, abdominal pain, nausea, vomit, diarrhea or constipation. Patient denies dysuria, frequency, urgency or hematuria. Patient denies sick contacts or recent travel. Allergies: NKA Past surgical history: Cholecystectomy Social history: Former smoker PCP: Dr. Smith <Flores Asif - Last Filed: 06/05/17 17:03> - General Chief Complaint: Edema Stated Complaint: R/O DVT Time Seen by Provider: 06/05/17 14:15 Past History - Past Medical History Anemia: No Asthma: No Cancer: Yes (2006 BREAST LEFT) Cardiac Disorders: Yes ([place] 2005) CVA: No COPD: No CHF: No Dementia: No Diabetes: No GI Disorders: Yes (GALL STONES REMOVED) Disorders: No HTN: Yes Hypercholesterolemia: Yes Liver Disease: No Seizures: No Thyroid Disease: No - Surgical History Abdominal Surgery: Yes Appendectomy: No Cardiac Surgery: No Cholecystectomy: Yes Lung Surgery: No Neurologic Surgery: No Orthopedic Surgery: No - Immunization History Immunization Up to Date: Yes - Suicide/Smoking/Psychosocial Hx Smoking History: Former smoker Have you smoked in the past 12 months: No If you are a former smoker, when did you quit?: 2017 Information on smoking cessation initiated: No Hx Alcohol Use: No Drug/Substance Use Hx: No Substance Use Type: None Hx Substance Use Treatment: No <Antonio Sandoval - Last Filed: 06/05/17 16:26> <Flores Asif - Last Filed: 06/05/17 17:03> - Past Medical History Allergies/Adverse Reactions: Allergies Allergy/AdvReac Type Severity Reaction Status Date / Time No Known Drug Allergies Allergy Verified 06/05/17 13:39 Home Medications: Ambulatory Orders Amlodipine Besylate [Norvasc -] 10 mg PO DAILY 05/17/17 Aspirin [Ecotrin] 81 mg PO DAILY 05/17/17 Atorvastatin Ca [Lipitor] 10 mg PO HS 05/17/17 Bupropion HCl [Wellbutrin Xl -] 150 mg PO DAILY 05/17/17 Carvedilol [Coreg] 6.25 mg PO DAILY 05/17/17 Clopidogrel Bisulfate [Plavix] 75 mg PO DAILY 05/17/17 Gabapentin [Neurontin] 400 mg PO TID 05/17/17 Isosorbide Mononitrate [Imdur] 60 mg PO DAILY 05/17/17 Oxycodone HCl/Acetaminophen [Percocet 5-325 mg Tablet] 1 tab PO Q6H PRN Pantoprazole Sodium [Protonix] 40 mg PO DAILY 05/17/17 Albuterol Sulfate [Proair Hfa] 2 puff IH Q6H PRN 30 Days #1 hfa.aer.ad MDD 4 11/04 Ipratropium/Albuterol Sulfate [Combivent Respimat Inhal [place]] 4 gm IH BID #1 aer.w.adap 05/26/17 Prednisone See Taper PO DAILY #30 tablet 05/26/17 Valsartan [Diovan] 80 mg PO DAILY 90 Days #90 tablet 05/26/17 Review of Systems - Review of Systems Able to Perform ROS?: Yes Comments:: 06/05/17 17:03 All other systems reviewed and are negative except noted in HPI <Flores Asif - Last Filed: 06/05/17 17:03> *Physical Exam - Vital Signs Last Vital Signs Temp Pulse Resp BP Pulse Ox 98.1 F 60 18 151/64 95 06/05/17 13:37 06/05/17 13:37 06/05/17 13:37 06/05/17 13:37 06/05/17 13:37 <Antonio Sandoval - Last Filed: 06/05/17 16:26> - Vital Signs Last Vital Signs Temp Pulse Resp BP Pulse Ox 98.1 F 60 18 151/64 95 06/05/17 13:37 06/05/17 13:37 06/05/17 13:37 06/05/17 13:37 06/05/17 13:37 - Physical Exam Comments: 06/05/17 17:03 GENERAL: The patient is awake, alert, and fully oriented, Nontoxic - in no acute distress. HEAD: Normocephalic, atraumatic. EYES: extraocular movements intact, sclera anicteric, conjunctiva clear. ENT: Normal voice, Moist mucous membranes. NECK: Normal range of motion, No JVD LUNGS: Breath sounds equal, clear to auscultation bilaterally. No wheezes, no rhonchi, no rales. HEART: Regular rate and rhythm, normal S1 and S2 without murmur, rub or gallop. ABDOMEN: Soft, nontender, normoactive bowel sounds. No guarding, no rebound. No masses. No CVA tenderness EXTREMITIES: +3+ pitting edema. Normal range of motion. No clubbing or cyanosis. No cords, erythema, or tenderness. NEUROLOGICAL: No facial asymmetry, Normal speech, normal gait. PSYCH: Normal mood, normal affect. SKIN: Warm, Dry, normal turgor. <Flores Asif - Last Filed: 06/05/17 17:03> Medical Decision Making - Medical Decision Making 06/05/17 14:55 82y F presents with increased RLL swelling and pain. Pain is most severe in her foot. +swelling inthe past and resolves with elevation. but worse now than usual. no cp, sob, hemoptysis, calf pain on exam pt has pitting edema in the LE, neg homans no sypmtoms to suggest PE dvt study pending 06/05/17 16:29 dvt study negative will dc with pmd fu return precautions were discussed I discussed the physical exam findings, ancillary test results and final diagnoses with the patient. I answered all of the patient's questions. The patient was satisfied with the care received and felt comfortable with the discharge plan and treatment plan. The patient will call their primary care physician within 24 hours to arrange follow-up and will return to the Emergency Department with any new, persistent or worsening symptoms. <Antonio Sandoval - Last Filed: 06/05/17 16:26> *DC/Admit/Observation/Transfer - Discharge Dispostion Admit: No <Antonio Sandoval - Last Filed: 06/05/17 16:26> - Attestations Scribe Attestion: 06/05/17 17:03 Documentation prepared by Flores Asif, acting as dental assistant medical assistant for Antonio Sandoval MD <Flores Asif - Last Filed: 06/05/17 17:03> Diagnosis at time of Disposition: Dependent edema - Discharge Dispostion Disposition: HOME Condition at time of disposition: Stable - Referrals Referrals: Osmel Smith MD [Primary Care Provider] - - Patient Instructions Printed Discharge Instructions: DI for Dependent Edema Additional Instructions: Return to the emergency department immediately with ANY new, persistent or worsening symptoms. You MUST call and follow up with your doctor tomorrow for further evaluation of your symptoms. Results were discussed with you. Please make sure your doctor reviews the results of your emergency evaluation. If you had any xrays during your visit, it was read preliminarily by myself, a Radiologist will review it and if there are any additional findings we will call you. Print Language: [place] - Post Discharge Activity
== END 2017-06-05 16:44 | disposition home or self-care (01) ==
LOC: JER 13:32
DX: R60.0 Localized edema (principal); I25.2 Old myocardial infarction; I10 Essential (primary) hypertension; E78.5 Hyperlipidemia, unspecified; E78.00 Pure hypercholesterolemia, unspecified
CPT/HCPCS: 93971-TC; 99281-25

== ENCOUNTER 2017-09-19 15:28 | Inpatient (IN) | payer OTHER ==
[2017-09-19] MEDS ORDERED: methylPREDNISolone NA SUCC 125 MG/2 ML VIAL IVPB ONE (15:46)
[2017-09-19] MEDS ORDERED: MAGNESIUM SULF 50% (8.12 MEQ/2 ML-1 GM VIAL) IVPB ONE (15:46)
[2017-09-19] MEDS ORDERED: ALBUTEROL SO4 0.083% IH SOL 2.5 MG/3 ML VIAL.NEB. NEB ONE (15:46)
--- NOTE | 2017-09-19 15:49 | PDOC ---
History of Present Illness - General Chief Complaint: Shortness of Breath Stated Complaint: DIFFICULTY BREATHING Time Seen by Provider: 09/19/17 15:29 History Source: Patient Exam Limitations: No Limitations - History of Present Illness Initial Comments: 09/19/17 16:52 82 year old female, with a significant past medical history of L Breast CA, CAD s/p [place] (2005), HTN, HLD, COPD exacerbation who presents to the emergency department by ambulance. Lives alone but nurse aide found her having some difficulty breathing and saw she was saturating in the low 80's. Per EMS that saturation persisted even while on nasal cannula 2L. Patient is non compliant with home 2L O2 which she doesn't like. 09/19/17 16:54 Past History - Past Medical History Allergies/Adverse Reactions: Allergies Allergy/AdvReac Type Severity Reaction Status Date / Time No Known Drug Allergies Allergy Verified 06/05/17 13:39 Home Medications: Ambulatory Orders Amlodipine Besylate [Norvasc -] 10 mg PO DAILY 05/17/17 Aspirin [Ecotrin] 81 mg PO DAILY 05/17/17 Atorvastatin Ca [Lipitor] 10 mg PO HS 05/17/17 Bupropion HCl [Wellbutrin Xl -] 150 mg PO DAILY 05/17/17 Carvedilol [Coreg] 6.25 mg PO DAILY 05/17/17 Clopidogrel Bisulfate [Plavix] 75 mg PO DAILY 05/17/17 Gabapentin [Neurontin] 400 mg PO TID 05/17/17 Isosorbide Mononitrate [Imdur] 60 mg PO DAILY 05/17/17 Oxycodone HCl/Acetaminophen [Percocet 5-325 mg Tablet] 1 tab PO Q6H PRN Pantoprazole Sodium [Protonix] 40 mg PO DAILY 05/17/17 Albuterol Sulfate [Proair Hfa] 2 puff IH Q6H PRN 30 Days #1 hfa.aer.ad MDD 4 11/04 Ipratropium/Albuterol Sulfate [Combivent Respimat Inhal [place]] 4 gm IH BID #1 aer.w.adap 05/26/17 Prednisone See Taper PO DAILY #30 tablet 05/26/17 Valsartan [Diovan] 80 mg PO DAILY 90 Days #90 tablet 05/26/17 Anemia: No Asthma: No Cancer: Yes (2006 BREAST LEFT) Cardiac Disorders: Yes ([place] 2006) CVA: No COPD: No CHF: No Dementia: No Diabetes: No GI Disorders: Yes (GALL STONES REMOVED) Disorders: No HTN: Yes Hypercholesterolemia: Yes Liver Disease: No Seizures: No Thyroid Disease: No - Surgical History Abdominal Surgery: Yes Appendectomy: No Cardiac Surgery: No Cholecystectomy: Yes Lung Surgery: No Neurologic Surgery: No Orthopedic Surgery: No - Immunization History Immunization Up to Date: Yes - Suicide/Smoking/Psychosocial Hx Smoking History: Former smoker Have you smoked in the past 12 months: No If you are a former smoker, when did you quit?: 2017 Information on smoking cessation initiated: No Hx Alcohol Use: No Drug/Substance Use Hx: No Substance Use Type: None Hx Substance Use Treatment: No Review of Systems - Review of Systems Able to Perform ROS?: Yes Is the patient limited Bengali proficient: No Constitutional: No: Symptoms Reported HEENTM: No: Symptoms Reported Respiratory: Yes: See HPI Cardiac (ROS): No: Symptoms Reported ABD/GI: No: Symptoms Reported : No: Symptoms Reported Musculoskeletal: No: Symptoms Reported Integumentary: No: Symptoms Reported Neurological: No: Symptoms reported All Other Systems: Reviewed and Negative *Physical Exam - Vital Signs Last Vital Signs Temp Pulse Resp BP Pulse Ox 97.8 F 59 L 22 143/71 97 09/19/17 15:39 09/19/17 15:39 09/19/17 15:39 09/19/17 15:39 09/19/17 15:39 - Physical Exam General Appearance: Yes: Nourished, Appropriately Dressed. No: Apparent Distress HEENT: positive: EOMI, RENY. negative: Normal ENT Inspection Respiratory/Chest: positive: Lungs Clear, Normal Breath Sounds. negative: Chest Tender, Respiratory Distress Cardiovascular: positive: Regular Rhythm, Regular Rate, S1, S2 Gastrointestinal/Abdominal: positive: Normal Bowel Sounds, Flat, Soft. negative : Tender Extremity: positive: Normal Capillary Refill, Normal Inspection, Normal Range of Motion Integumentary: positive: Normal Color, Dry, Warm Neurologic: positive: Fully Oriented, Alert, Normal Mood/Affect, Normal Response , Motor Strength 5/5 ED Treatment Course - LABORATORY CBC & Chemistry Diagram: 09/19/17 16:38 09/19/17 16:38 Medical Decision Making - Medical Decision Making 09/19/17 17:01 CXR: A single AP view the chest has been submitted. There are some coarse lung changes but no sign of infiltrate or failure. Since 05/18/2017, there is no change of an adverse nature. Some questionable tiny nodules are suggested. These are seen better on the CT from 05/21/2017.. EKG: Sinus bradicardia with sinus arrythmia. Septal infarct, age undertermined *DC/Admit/Observation/Transfer Diagnosis at time of Disposition: COPD with acute exacerbation - Discharge Dispostion Decision to Admit order: Yes - Referrals - Patient Instructions - Post Discharge Activity
--- NOTE | 2017-09-19 16:37 | PDOC ---
Attending Attestation - Resident Resident Name: Vince Abrams - ED Attending Attestation I have performed the following: I have examined & evaluated the patient, The case was reviewed & discussed with the resident, I agree w/resident's findings & plan, Exceptions are as noted - HPI HPI: 09/19/17 16:34 82-year-old female history COPD left aka hypertension here today complaining of shortness of breath. Patient lives at home alone with occasional home health aid. Today the home health aide called the patient was feeling short of breath told to come to the ED patient is supposed to be wearing home O2 but refuses to wear it denies any fever or chills no nausea no vomiting does not complaining of any chest pain. - Physicial Exam PE: 09/19/17 16:35 Awake alert no acute distress lungs are with decreased air flow bilaterally noted wheezes at bilateral bases. No accessory muscle use no respiratory distress. Heart is regular without any murmurs rubs or gallops. Abdomen is soft and nontender extremities are warm and well-perfused there is no noted peripheral edema in the right leg. The left leg is status post temptation neurologically the patient is alert and oriented 3 - Medical Decision Making 09/19/17 16:36 Differential diagnosis includes COPD, pneumonia, pleural effusion, CHF, anemia, renal failure or other electrolyte abnormality. Plan CBC electrolytes chest x- ray we'll treat the patient for presumed COPD with bronchodilators steroids and magnesium. Patient does require oxygen will likely require admission for COPD exacerbation and concerns for home health situation 09/19/17 17:47 pt with nodule on cxr no infiltrate. labs unremarkable. will admit for copd exacerbation. dr. ashley plummer.
[2017-09-19 16:43] LABS: BASO % 0.6 % (0-2.0); EOS % 6.9 % (0-4.5); HEMATOCRIT 37.9 % (32.4-45.2); HEMOGLOBIN 12.2 GM/dL (10.7-15.3); LYMPH % 18.3 % (8-40); MCH 26.8 pg (25.7-33.7); MCHC 32.2 g/dl (32.0-36.0); MEAN CELL VOLUME 83.1 fl (80-96); MEAN PLT VOLUME 9.8 fl (7.5-11.1); MONO % 7.2 % (3.8-10.2); PLATELET COUNT 139 K/MM3 (134-434); RBC 4.56 M/mm3 (3.60-5.2); RDW 14.6 % (11.6-15.6); WHITE BLOOD COUNT 5.7 K/mm3 (4.0-10.0)
[2017-09-19 17:01] LABS: ALBUMIN 3.7 g/dl (3.4-5.0); ALK PHOS 100 U/L (45-117); ANION GAP 2 (8-16); BILIRUBIN,TOTAL 0.3 mg/dL (0.2-1.0); BLOOD UREA NITROGEN 18 mg/dL (7-18); CALCIUM 9.8 mg/dL (8.5-10.1); CHLORIDE 104 mmol/L (98-107); CO2 36 mmol/L (21-32); GLUCOSE,RANDOM 85 mg/dL (74-106); POTASSIUM 4.9 mmol/L (3.5-5.1); SGOT/AST 21 U/L (15-37); SGPT/ALT 17 U/L (12-78); SODIUM 142 mmol/L (136-145); TOT PROT 6.7 g/dl (6.4-8.2)
[2017-09-19] MEDS ORDERED: methylPREDNISolone NA SUCC 125 MG/2 ML VIAL ONE (18:06)
[2017-09-19] MEDS ORDERED: MAGNESIUM 1GM/D5W - 2 GM/200 ML IVPB IVPB ONE (18:06)
[2017-09-19] MEDS ORDERED: ALBUTEROL SO4 2.5/IPRATROPIUM 0.5 INH SOL 3 ML VIAL.NEB. NEB ONE (18:06)
--- NOTE | 2017-09-19 19:21 | HP ---
Admitting History and Physical - Primary Care Physician PCP: Osmel Smith - Admission Chief Complaint: SOB History of Present Illness: Pt with significant Hx/o COPD developed progressive SOB over the last 4-5 days. THis AM her [employer] call 911 as pt was in respiratory distress. EMS fond pt O2 sat in lower 80 on RA (pt has O2 at home but is not using it). Pt's O2 sat improved with O2 supplementation. History Source: Patient, Significant Other (ER attending) Limitations to Obtaining History: No Limitations - Past Medical History Cardiovascular: Yes: CAD, HTN, Hyperlipdemia Pulmonary: Yes: COPD (probable; pt smoked for very long time. Pt was oxygen at home) Gastrointestinal: Yes: GERD (Personal Hx of tobacoo use) Heme/Onc: Yes: Cancer (Left Breast), Thrombocytopenia - Smoking History Smoking history: Former smoker Have you smoked in the past 12 months: No If you are a former smoker, when did you quit?: 2017 - Alcohol/Substance Use Hx Alcohol Use: No Home Medications - Allergies Allergies/Adverse Reactions: Allergies Allergy/AdvReac Type Severity Reaction Status Date / Time No Known Drug Allergies Allergy Verified 06/05/17 13:39 - Home Medications Home Medications: Ambulatory Orders Amlodipine Besylate [Norvasc -] 10 mg PO DAILY 05/17/17 Aspirin [Ecotrin] 81 mg PO DAILY 05/17/17 Atorvastatin Ca [Lipitor] 10 mg PO HS 05/17/17 Bupropion HCl [Wellbutrin Xl -] 150 mg PO DAILY 05/17/17 Carvedilol [Coreg] 6.25 mg PO DAILY 05/17/17 Clopidogrel Bisulfate [Plavix] 75 mg PO DAILY 05/17/17 Gabapentin [Neurontin] 400 mg PO TID 05/17/17 Isosorbide Mononitrate [Imdur] 60 mg PO DAILY 05/17/17 Oxycodone HCl/Acetaminophen [Percocet 5-325 mg Tablet] 1 tab PO Q6H PRN Pantoprazole Sodium [Protonix] 40 mg PO DAILY 05/17/17 Albuterol Sulfate [Proair Hfa] 2 puff IH Q6H PRN 30 Days #1 hfa.aer.ad MDD 4 11/04 Ipratropium/Albuterol Sulfate [Combivent Respimat Inhal [place]] 4 gm IH BID #1 aer.w.adap 05/26/17 Prednisone See Taper PO DAILY #30 tablet 05/26/17 Valsartan [Diovan] 80 mg PO DAILY 90 Days #90 tablet 05/26/17 Review of Systems - Review of Systems Constitutional: denies: Chills, Fever Eyes: denies: Blurred Vision, Double Vision HENT: denies: Difficult Swallowing, Ear Discharge, Ear Pain, Epistaxis, Nasal Congestion, Throat Pain Neck: denies: Pain on Movement, Stiffness, Tenderness Cardiovascular: denies: Chest Pain, Edema, Palpitations Respiratory: reports: Cough (with white sputum), SOB, Wheezing. denies: Hemoptysis Gastrointestinal: denies: Abdominal Pain, Bloating, Diarrhea, Nausea, Vomiting Genitourinary: denies: Burning, Dysuria Musculoskeletal: denies: Back Pain, Muscle Pain Neurological: denies: Change in LOC, Change in Speech, Numbness, Tremors Endocrine: denies: Excessive Sweating, Intolerance to Cold Psychiatric: denies: Altered Sleep Pattern, Anxiety, Depression Physical Examination Vital Signs: Vital Signs Temperature 97.8 F 09/19/17 15:39 Pulse Rate 59 L 09/19/17 15:39 Respiratory Rate 22 09/19/17 15:39 Blood Pressure 143/71 09/19/17 15:39 O2 Sat by Pulse Oximetry (%) 99 09/19/17 17:14 Constitutional: Yes: No Distress, Calm Eyes: Yes: Conjunctiva Clear, EOM Intact HENT: No: Drooling, Epistaxis, Pharyngeal Erythema, Rhinnorhea Neck: Yes: Trachea Midline. No: Lymphadenopathy Cardiovascular: Yes: Regular Rate and Rhythm, S1, S2 Respiratory: Yes: Regular, Rhonchi (bilat), Wheezes (bilat) Gastrointestinal: Yes: Normal Bowel Sounds, Soft. No: Tenderness ...Rectal Exam: Yes: Deferred Breast(s): Yes: Other (deferred) Musculoskeletal: No: Back Pain, Joint Stiffness Extremities: Yes: Other (Left AKA) Edema: No Neurological: Yes: Alert, Oriented, Other (motor and sensory symmetric in UE/ Face) Labs: CBC, BMP 09/19/17 16:38 09/19/17 16:38 Imaging - Results Chest X-ray: Report Reviewed, Image Reviewed Problem List - Problems (1) COPD with acute exacerbation Code(s): J44.1 - CHRONIC OBSTRUCTIVE PULMONARY DISEASE W (ACUTE) EXACERBATION (2) CAD (coronary artery disease) Code(s): I25.10 - ATHSCL HEART DISEASE OF [place] CORONARY ARTERY W/O ANG PCTRS Qualifiers: Coronary Disease-Associated Artery/Lesion type: [place] artery [place] vs. transplanted heart: [place] heart Associated angina: without angina Qualified Code(s): I25.10 - Atherosclerotic heart disease of [place] coronary artery without angina pectoris (3) HTN (hypertension) Code(s): I10 - ESSENTIAL (PRIMARY) HYPERTENSION Qualifiers: Hypertension type: essential hypertension Qualified Code(s): I10 - Essential (primary) hypertension (4) History of left above knee amputation Code(s): Z89.612 - ACQUIRED ABSENCE OF LEFT LEG ABOVE KNEE (5) PVD (peripheral vascular disease) Code(s): I73.9 - PERIPHERAL VASCULAR DISEASE, UNSPECIFIED (6) Hypercholesterolemia Code(s): E78.00 - PURE HYPERCHOLESTEROLEMIA, UNSPECIFIED (7) CHF (congestive heart failure) Code(s): I50.9 - HEART FAILURE, UNSPECIFIED Qualifiers: Heart failure type: diastolic Assessment/Plan Serial CE IV Solu-Medrol Pulmonary Consult DVT proph AM Labs
[2017-09-19] MEDS: methylPREDNISolone NA SUCC 40 MG/1 ML VIAL IVPB SCH (23:42)
[2017-09-19] MEDS: ATORVASTATIN CA 10 MG TABLET (FP) PO SCH (23:42)
[2017-09-19] MEDS: CARVEDILOL 6.25 MG TABLET (FP) PO SCH (23:42)
[2017-09-19] MEDS: GABAPENTIN 400 MG CAPSULE (FP) PO SCH (23:42)
[2017-09-19] MEDS: HEPARIN NA (PORCINE) 5,000 UNITS/ML 1ML VIAL SQ SCH (23:42)
[2017-09-19] MEDS: ALBUTEROL SO4 2.5/IPRATROPIUM 0.5 INH SOL 3 ML VIAL.NEB. NEB SCH (23:45)
[2017-09-20] MEDS: methylPREDNISolone NA SUCC 40 MG/1 ML VIAL IVPB SCH ×4 (03:36→20:02)
[2017-09-20] MEDS: GABAPENTIN 400 MG CAPSULE (FP) PO SCH ×3 (06:54→21:15)
[2017-09-20] MEDS: oxyCODONE HCL 5 MG TABLET PO PRN (06:57)
[2017-09-20] MEDS: ALBUTEROL SO4 2.5/IPRATROPIUM 0.5 INH SOL 3 ML VIAL.NEB. NEB SCH ×4 (07:35→20:38)
[2017-09-20 08:15] LABS: HEMATOCRIT 43.1 % (32.4-45.2); HEMOGLOBIN 13.6 GM/dL (10.7-15.3); MCH 26.2 pg (25.7-33.7); MCHC 31.5 g/dl (32.0-36.0); MEAN CELL VOLUME 83.3 fl (80-96); MEAN PLT VOLUME 9.7 fl (7.5-11.1); PLATELET COUNT 142 K/MM3 (134-434); RBC 5.17 M/mm3 (3.60-5.2); RDW 14.2 % (11.6-15.6); WHITE BLOOD COUNT 4.4 K/mm3 (4.0-10.0)
[2017-09-20 08:50] LABS: CHLORIDE 100 mmol/L (98-107); POTASSIUM 5.4 mmol/L (3.5-5.1); SODIUM 138 mmol/L (136-145)
[2017-09-20 09:02] LABS: ALBUMIN 3.6 g/dl (3.4-5.0); ALK PHOS 112 U/L (45-117); ANION GAP 6 (8-16); BILIRUBIN,TOTAL 0.3 mg/dL (0.2-1.0); BLOOD UREA NITROGEN 21 mg/dL (7-18); CALCIUM 10.1 mg/dL (8.5-10.1); CO2 32 mmol/L (21-32); CREATININE 1.2 mg/dL (0.55-1.02); GLUCOSE,RANDOM 101 mg/dL (74-106); SGOT/AST 23 U/L (15-37); SGPT/ALT 21 U/L (12-78); TOT PROT 7.4 g/dl (6.4-8.2)
--- NOTE | 2017-09-20 09:13 | EKG ---
Test Reason : Blood Pressure : / mmHG Vent. Rate : 058 BPM Atrial Rate : 058 BPM P-R Int : 142 ms QRS Dur : 080 ms QT Int : 428 ms P-R-T Axes : 089 045 091 degrees QTc Int : 420 ms SINUS BRADYCARDIA WITH SINUS ARRHYTHMIA SEPTAL INFARCT (CITED ON OR BEFORE 17-MAY-2017) ABNORMAL ECG WHEN COMPARED WITH ECG OF 17-MAY-2017 12:32, QUESTIONABLE CHANGE IN INITIAL FORCES OF SEPTAL LEADS Confirmed by ELVIS WRIGHT MD ([id number]) on 09/20/2017 9:12:39 AM Referred By: Confirmed By:ELVIS WRIGHT MD
[2017-09-20] MEDS: LOSARTAN POTASSIUM 25 MG TABLET PO SCH (10:10)
[2017-09-20] MEDS: CLOPIDOGREL BISULFATE 75 MG TABLET (FP) PO SCH (10:10)
[2017-09-20] MEDS: PANTOPRAZOLE 40 MG TABLET (FP) PO SCH (10:10)
[2017-09-20] MEDS: ASPIRIN COATED 81 MG TABLET.EC PO SCH (10:10)
[2017-09-20] MEDS: CARVEDILOL 6.25 MG TABLET (FP) PO SCH ×2 (10:10→21:15)
[2017-09-20] MEDS: amLODIPine BESYLATE 10 MG TABLET (FP) PO SCH (10:10)
[2017-09-20] MEDS: ISOSORBIDE MONONITRATE 60 MG TAB.SR.24H (FP) PO SCH (10:10)
[2017-09-20] MEDS: HEPARIN NA (PORCINE) 5,000 UNITS/ML 1ML VIAL SQ SCH ×2 (10:11→21:14)
[2017-09-20] MEDS ORDERED: SODIUM POLYSTYRENE SULFONATE 15 GM/60 ML BOTTLE PO ONE (10:15)
--- NOTE | 2017-09-20 14:31 | CON.PULM ---
Consult Consult Specialty:: PULMONARY Referred by:: Dr. Smith Reason for Consultation:: shortness of breath - History of Present Illness Chief Complaint: shortness of breath History of Present Illness: 82yo female with h/o HTN, hyperlipidemia, CAD, COPD, chronic hypoxic respiratory failure on home O2, left breast ca, L AKA who was admitted for worsening shortness of breath. Reports a cough productive of yellow sputum as well as some wheezing. No chest pain or palpitations. Reports increased swelling in right leg, sleeps on 2 pillows. Was noted to be hypoxic to 80s by EMS. Uses her oxygen sparingly, does not like to travel with portable tanks, requesting portable concentrator. She is a long time smoker, states she quit over a year ago. - History Source History Provided By: Patient, Medical Record Limitations to Obtaining History: No Limitations - Past Medical History Cardio/Vascular: Yes: CAD, HTN, Hyperlipdemia Pulmonary: Yes: COPD (probable; pt smoked for very long time. Pt was oxygen at home) Gastrointestinal: Yes: GERD (Personal Hx of tobacoo use) - Alcohol/Substance Use Hx Alcohol Use: No - Smoking History Smoking history: Former smoker Have you smoked in the past 12 months: No If you are a former smoker, when did you quit?: 2017 Home Medications - Allergies Allergies/Adverse Reactions: Allergies Allergy/AdvReac Type Severity Reaction Status Date / Time No Known Drug Allergies Allergy Verified 06/05/17 13:39 - Home Medications Home Medications: Ambulatory Orders Amlodipine Besylate [Norvasc -] 10 mg PO DAILY 05/17/17 Aspirin [Ecotrin] 81 mg PO DAILY 05/17/17 Atorvastatin Ca [Lipitor] 10 mg PO HS 05/17/17 Bupropion HCl [Wellbutrin Xl -] 150 mg PO DAILY 05/17/17 Carvedilol [Coreg] 6.25 mg PO DAILY 05/17/17 Clopidogrel Bisulfate [Plavix] 75 mg PO DAILY 05/17/17 Gabapentin [Neurontin] 400 mg PO TID 05/17/17 Isosorbide Mononitrate [Imdur] 60 mg PO DAILY 05/17/17 Oxycodone HCl/Acetaminophen [Percocet 5-325 mg Tablet] 1 tab PO Q6H PRN Pantoprazole Sodium [Protonix] 40 mg PO DAILY 05/17/17 Albuterol Sulfate [Proair Hfa] 2 puff IH Q6H PRN 30 Days #1 hfa.aer.ad MDD 4 11/04 Ipratropium/Albuterol Sulfate [Combivent Respimat Inhal [place]] 4 gm IH BID #1 aer.w.adap 05/26/17 Prednisone See Taper PO DAILY #30 tablet 05/26/17 Valsartan [Diovan] 80 mg PO DAILY 90 Days #90 tablet 05/26/17 Review of Systems - Review of Systems Constitutional: reports: Weakness. denies: Chills, Fever Eyes: denies: Recent Change in Vision HENT: denies: Nasal Congestion, Throat Pain Neck: denies: Stiffness, Tenderness Cardiovascular: reports: Edema, Shortness of Breath. denies: Chest Pain, Palpitations Respiratory: reports: Cough, SOB, Wheezing. denies: Hemoptysis Gastrointestinal: denies: Abdominal Pain, Nausea, Vomiting Genitourinary: denies: Dysuria, Hematuria Neurological: denies: Dizziness, Headache Physical Exam Vital Sings: Vital Signs Temperature 98.3 F 09/20/17 13:18 Pulse Rate 63 09/20/17 13:18 Respiratory Rate 20 09/20/17 13:18 Blood Pressure 140/71 09/20/17 13:18 O2 Sat by Pulse Oximetry (%) 96 09/20/17 09:00 Constitutional: Yes: Calm Eyes: Yes: Conjunctiva Clear, EOM Intact HENT: Yes: Atraumatic, Normocephalic Neck: Yes: Supple, Trachea Midline Cardiovascular: Yes: Regular Rate and Rhythm Respiratory: Yes: Diminished (distant breath sounds) ...Clubbing: No Gastrointestinal: Yes: Normal Bowel Sounds, Soft. No: Tenderness Extremities: Yes: Amputation (left aka) Edema: Yes (trace) Neurological: Yes: Alert, Oriented Labs: CBC, BMP 09/20/17 07:30 09/20/17 07:30 Imaging - Results Chest X-ray: Report Reviewed, Image Reviewed Problem List - Problems (1) COPD with acute exacerbation Code(s): J44.1 - CHRONIC OBSTRUCTIVE PULMONARY DISEASE W (ACUTE) EXACERBATION (2) Acute on chronic respiratory failure with hypoxia and hypercapnia Code(s): J96.21 - ACUTE AND CHRONIC RESPIRATORY FAILURE WITH HYPOXIA; J96.22 - ACUTE AND CHRONIC RESPIRATORY FAILURE WITH HYPERCAPNIA (3) CHF (congestive heart failure) Code(s): I50.9 - HEART FAILURE, UNSPECIFIED Qualifiers: Heart failure type: diastolic (4) CAD (coronary artery disease) Code(s): I25.10 - ATHSCL HEART DISEASE OF [place] CORONARY ARTERY W/O ANG PCTRS Qualifiers: Coronary Disease-Associated Artery/Lesion type: [place] artery [place] vs. transplanted heart: [place] heart Associated angina: without angina Qualified Code(s): I25.10 - Atherosclerotic heart disease of [place] coronary artery without angina pectoris (5) HTN (hypertension) Code(s): I10 - ESSENTIAL (PRIMARY) HYPERTENSION Qualifiers: Hypertension type: essential hypertension Qualified Code(s): I10 - Essential (primary) hypertension (6) Hypercholesterolemia Code(s): E78.00 - PURE HYPERCHOLESTEROLEMIA, UNSPECIFIED (7) PVD (peripheral vascular disease) Code(s): I73.9 - PERIPHERAL VASCULAR DISEASE, UNSPECIFIED (8) Systolic dysfunction Code(s): I51.9 - HEART DISEASE, UNSPECIFIED Assessment/Plan Acute COPD Exacerbation Acute on Chronic Hypoxic and Hypercapneic Respiratory Failure LV Systolic Dysfunction Pulmonary HTN CAD PAD HTN Hyperlipidemia h/o L AKA - agree with IV medrol - inhaled bronchodilators standing and PRN - O2 to keep SpO2>90% - echocardiogram - continue cardiac meds - DVT prophylaxis Thank you for this consult Peter Ortega MD
--- NOTE | 2017-09-20 14:47 | PN ---
Progress Note, Physician History of Present Illness: Pt is coughing less, breathing better. Pt w/o CP/ palpitation, Abd Pain - Current Medication List Current Medications: Active Medications Acetaminophen (Tylenol -) 325 mg PO Q6H PRN PRN Reason: PAIN LEVEL 1-5 Albuterol/Ipratropium (Duoneb -) 1 amp NEB RQID [facility] Last Admin: 09/20/17 11:40 Dose: 1 amp Amlodipine Besylate (Norvasc -) 10 mg PO DAILY [facility] Last Admin: 09/20/17 10:10 Dose: 10 mg Aspirin (Ecotrin -) 81 mg PO DAILY [facility] Last Admin: 09/20/17 10:10 Dose: 81 mg Atorvastatin Calcium (Lipitor -) 10 mg PO HS [facility] Last Admin: 09/19/17 23:42 Dose: 10 mg Bupropion HCl (Wellbutrin Xl -) 150 mg PO DAILY [facility] Last Admin: 09/20/17 10:10 Dose: 150 mg Carvedilol (Coreg -) 6.25 mg PO BID [facility] Last Admin: 09/20/17 10:10 Dose: 6.25 mg Clopidogrel Bisulfate (Plavix -) 75 mg PO DAILY [facility] Last Admin: 09/20/17 10:10 Dose: 75 mg Gabapentin (Neurontin -) 400 mg PO TID [facility] Last Admin: 09/20/17 14:16 Dose: 400 mg Heparin Sodium (Porcine) (Heparin -) 5,000 unit SQ BID [facility] Last Admin: 09/20/17 10:11 Dose: 5,000 unit Isosorbide Mononitrate (Imdur -) 60 mg PO DAILY [facility] Last Admin: 09/20/17 10:10 Dose: 60 mg Losartan Potassium (Cozaar -) 25 mg PO DAILY [facility] Last Admin: 09/20/17 10:10 Dose: 25 mg Methylprednisolone Sodium Succinate (Solu-Medrol -) 40 mg IVPB Q6H-IV [facility] Last Admin: 09/20/17 10:10 Dose: 40 mg Oxycodone HCl (Roxicodone -) 5 mg PO Q6H PRN PRN Reason: PAIN LEVEL 1-5 Last Admin: 09/20/17 06:57 Dose: 5 mg Pantoprazole Sodium (Protonix -) 40 mg PO DAILY [facility] Last Admin: 09/20/17 10:10 Dose: 40 mg - Objective Vital Signs: Vital Signs Temperature 98.3 F 09/20/17 13:18 Pulse Rate 63 09/20/17 13:18 Respiratory Rate 20 09/20/17 13:18 Blood Pressure 140/71 09/20/17 13:18 O2 Sat by Pulse Oximetry (%) 96 09/20/17 09:00 Constitutional: Yes: No Distress, Calm Cardiovascular: Yes: Regular Rate and Rhythm, S1, S2 Respiratory: Yes: Regular, Rhonchi Gastrointestinal: Yes: Normal Bowel Sounds, Soft. No: Tenderness Edema: No (of right leg) Neurological: Yes: Alert, Oriented Labs: CBC, BMP 09/20/17 07:30 09/20/17 07:30 Problem List - Problems (1) COPD with acute exacerbation Code(s): J44.1 - CHRONIC OBSTRUCTIVE PULMONARY DISEASE W (ACUTE) EXACERBATION (2) Acute on chronic respiratory failure with hypoxia and hypercapnia Code(s): J96.21 - ACUTE AND CHRONIC RESPIRATORY FAILURE WITH HYPOXIA; J96.22 - ACUTE AND CHRONIC RESPIRATORY FAILURE WITH HYPERCAPNIA (3) CAD (coronary artery disease) Code(s): I25.10 - ATHSCL HEART DISEASE OF [place] CORONARY ARTERY W/O ANG PCTRS Qualifiers: Coronary Disease-Associated Artery/Lesion type: [place] artery [place] vs. transplanted heart: [place] heart Associated angina: without angina Qualified Code(s): I25.10 - Atherosclerotic heart disease of [place] coronary artery without angina pectoris (4) HTN (hypertension) Code(s): I10 - ESSENTIAL (PRIMARY) HYPERTENSION Qualifiers: Hypertension type: essential hypertension Qualified Code(s): I10 - Essential (primary) hypertension (5) History of left above knee amputation Code(s): Z89.612 - ACQUIRED ABSENCE OF LEFT LEG ABOVE KNEE (6) PVD (peripheral vascular disease) Code(s): I73.9 - PERIPHERAL VASCULAR DISEASE, UNSPECIFIED (7) Hypercholesterolemia Code(s): E78.00 - PURE HYPERCHOLESTEROLEMIA, UNSPECIFIED (8) CHF (congestive heart failure) Code(s): I50.9 - HEART FAILURE, UNSPECIFIED Qualifiers: Heart failure type: diastolic (9) Hyperkalemia Assessment/Plan: Kayex[place] Code(s): E87.5 - HYPERKALEMIA Assessment/Plan Serial CE -negative Cont IV Solu-Medrol Pulmonary Consult appreciated. DVT proph AM Labs
[2017-09-20] MEDS: ATORVASTATIN CA 10 MG TABLET (FP) PO SCH (21:15)
[2017-09-21] MEDS: methylPREDNISolone NA SUCC 40 MG/1 ML VIAL IVPB SCH ×3 (02:23→17:28)
[2017-09-21] MEDS: GABAPENTIN 400 MG CAPSULE (FP) PO SCH ×3 (05:11→21:40)
[2017-09-21] MEDS: ALBUTEROL SO4 2.5/IPRATROPIUM 0.5 INH SOL 3 ML VIAL.NEB. NEB SCH ×2 (07:50→11:41)
[2017-09-21 08:17] LABS: HEMATOCRIT 37.5 % (32.4-45.2); HEMOGLOBIN 11.9 GM/dL (10.7-15.3); MCH 26.2 pg (25.7-33.7); MCHC 31.8 g/dl (32.0-36.0); MEAN CELL VOLUME 82.2 fl (80-96); MEAN PLT VOLUME 10.4 fl (7.5-11.1); PLATELET COUNT 151 K/MM3 (134-434); RBC 4.57 M/mm3 (3.60-5.2); RDW 14.4 % (11.6-15.6)
[2017-09-21 08:55] LABS: ANION GAP 0 (8-16); BLOOD UREA NITROGEN 33 mg/dL (7-18); CALCIUM 9.6 mg/dL (8.5-10.1); CHLORIDE 103 mmol/L (98-107); CO2 34 mmol/L (21-32); CREATININE 1.4 mg/dL (0.55-1.02); GLUCOSE,RANDOM 95 mg/dL (74-106); POTASSIUM 4.7 mmol/L (3.5-5.1); SODIUM 137 mmol/L (136-145)
[2017-09-21] MEDS: HEPARIN NA (PORCINE) 5,000 UNITS/ML 1ML VIAL SQ SCH ×2 (09:32→21:40)
[2017-09-21] MEDS: CARVEDILOL 6.25 MG TABLET (FP) PO SCH ×2 (09:32→21:40)
[2017-09-21] MEDS: ASPIRIN COATED 81 MG TABLET.EC PO SCH (09:33)
[2017-09-21] MEDS: ISOSORBIDE MONONITRATE 60 MG TAB.SR.24H (FP) PO SCH (09:34)
[2017-09-21] MEDS: PANTOPRAZOLE 40 MG TABLET (FP) PO SCH (09:34)
[2017-09-21] MEDS: amLODIPine BESYLATE 10 MG TABLET (FP) PO SCH (09:34)
[2017-09-21] MEDS: CLOPIDOGREL BISULFATE 75 MG TABLET (FP) PO SCH (09:35)
[2017-09-21] MEDS: LOSARTAN POTASSIUM 25 MG TABLET PO SCH (09:35)
--- NOTE | 2017-09-21 12:40 | PN ---
Progress Note (short form) - Note Progress Note: PULMONARY States breathing better today. Less cough and wheezing. Vital Signs Period Temp Pulse Resp BP Sys/[place] Pulse Ox Last 24 Hr 98.1 F-98.3 F 60-67 18-20 115-140/66-74 96-96 Gen: NAD at rest Heart: RRR Lung: distant breath sounds, no wheezes Abd: soft, nontender Ext: + L AKA CBC, BMP 09/21/17 07:40 09/21/17 07:40 Active Medications Acetaminophen (Tylenol -) 325 mg PO Q6H PRN PRN Reason: PAIN LEVEL 1-5 Albuterol/Ipratropium (Duoneb -) 1 amp NEB RQID [facility] Last Admin: 09/21/17 11:41 Dose: Not Given Amlodipine Besylate (Norvasc -) 10 mg PO DAILY [facility] Last Admin: 09/21/17 09:34 Dose: 10 mg Aspirin (Ecotrin -) 81 mg PO DAILY [facility] Last Admin: 09/21/17 09:33 Dose: 81 mg Atorvastatin Calcium (Lipitor -) 10 mg PO HS [facility] Last Admin: 09/20/17 21:15 Dose: 10 mg Bupropion HCl (Wellbutrin Xl -) 150 mg PO DAILY [facility] Last Admin: 09/21/17 09:33 Dose: 150 mg Carvedilol (Coreg -) 6.25 mg PO BID [facility] Last Admin: 09/21/17 09:32 Dose: 6.25 mg Clopidogrel Bisulfate (Plavix -) 75 mg PO DAILY [facility] Last Admin: 09/21/17 09:35 Dose: 75 mg Gabapentin (Neurontin -) 400 mg PO TID [facility] Last Admin: 09/21/17 05:11 Dose: 400 mg Heparin Sodium (Porcine) (Heparin -) 5,000 unit SQ BID [facility] Last Admin: 09/21/17 09:32 Dose: 5,000 unit Isosorbide Mononitrate (Imdur -) 60 mg PO DAILY [facility] Last Admin: 09/21/17 09:34 Dose: 60 mg Losartan Potassium (Cozaar -) 25 mg PO DAILY [facility] Last Admin: 09/21/17 09:35 Dose: 25 mg Methylprednisolone Sodium Succinate (Solu-Medrol -) 40 mg IVPB Q6H-IV [facility] Last Admin: 09/21/17 09:32 Dose: 40 mg Oxycodone HCl (Roxicodone -) 5 mg PO Q6H PRN PRN Reason: PAIN LEVEL 1-5 Last Admin: 09/20/17 06:57 Dose: 5 mg Pantoprazole Sodium (Protonix -) 40 mg PO DAILY [facility] Last Admin: 09/21/17 09:34 Dose: 40 mg A/P Acute COPD Exacerbation Acute on Chronic Hypoxic and Hypercapneic Respiratory Failure LV Systolic Dysfunction Pulmonary HTN CAD PAD HTN Hyperlipidemia h/o L AKA - will decrease medrol to q8h - inhaled bronchodilators standing and PRN - O2 to keep SpO2>90% - echocardiogram - continue cardiac meds - DVT prophylaxis Problem List - Problems (1) COPD with acute exacerbation Code(s): J44.1 - CHRONIC OBSTRUCTIVE PULMONARY DISEASE W (ACUTE) EXACERBATION (2) Acute on chronic respiratory failure with hypoxia and hypercapnia Code(s): J96.21 - ACUTE AND CHRONIC RESPIRATORY FAILURE WITH HYPOXIA; J96.22 - ACUTE AND CHRONIC RESPIRATORY FAILURE WITH HYPERCAPNIA (3) CHF (congestive heart failure) Code(s): I50.9 - HEART FAILURE, UNSPECIFIED Qualifiers: Heart failure type: diastolic (4) CAD (coronary artery disease) Code(s): I25.10 - ATHSCL HEART DISEASE OF [place] CORONARY ARTERY W/O ANG PCTRS Qualifiers: Coronary Disease-Associated Artery/Lesion type: [place] artery [place] vs. transplanted heart: [place] heart Associated angina: without angina Qualified Code(s): I25.10 - Atherosclerotic heart disease of [place] coronary artery without angina pectoris (5) HTN (hypertension) Code(s): I10 - ESSENTIAL (PRIMARY) HYPERTENSION Qualifiers: Hypertension type: essential hypertension Qualified Code(s): I10 - Essential (primary) hypertension (6) Hypercholesterolemia Code(s): E78.00 - PURE HYPERCHOLESTEROLEMIA, UNSPECIFIED (7) PVD (peripheral vascular disease) Code(s): I73.9 - PERIPHERAL VASCULAR DISEASE, UNSPECIFIED (8) Systolic dysfunction Code(s): I51.9 - HEART DISEASE, UNSPECIFIED
[2017-09-21 12:44] VITALS: BMI 16.9
[2017-09-21] MEDS: ACETAMINOPHEN 325 MG TABLET (FP) PO PRN (13:11)
[2017-09-21] MEDS: oxyCODONE HCL 5 MG TABLET PO PRN (13:12)
--- NOTE | 2017-09-21 14:27 | PN ---
Progress Note, Physician History of Present Illness: Pt is coughing less, breathing better. Pt w/o SOB, CP, palpitation, abd pain. Pt is refusing morning blood drawing, states not to order because she will not allow the techinician to draw blood - Current Medication List Current Medications: Active Medications Acetaminophen (Tylenol -) 325 mg PO Q6H PRN PRN Reason: PAIN LEVEL 1-5 Last Admin: 09/21/17 13:11 Dose: 325 mg Albuterol/Ipratropium (Duoneb -) 1 amp NEB RQID [facility] Last Admin: 09/21/17 11:41 Dose: Not Given Amlodipine Besylate (Norvasc -) 10 mg PO DAILY [facility] Last Admin: 09/21/17 09:34 Dose: 10 mg Aspirin (Ecotrin -) 81 mg PO DAILY [facility] Last Admin: 09/21/17 09:33 Dose: 81 mg Atorvastatin Calcium (Lipitor -) 10 mg PO HS [facility] Last Admin: 09/20/17 21:15 Dose: 10 mg Bupropion HCl (Wellbutrin Xl -) 150 mg PO DAILY [facility] Last Admin: 09/21/17 09:33 Dose: 150 mg Carvedilol (Coreg -) 6.25 mg PO BID [facility] Last Admin: 09/21/17 09:32 Dose: 6.25 mg Clopidogrel Bisulfate (Plavix -) 75 mg PO DAILY [facility] Last Admin: 09/21/17 09:35 Dose: 75 mg Gabapentin (Neurontin -) 400 mg PO TID [facility] Last Admin: 09/21/17 13:40 Dose: 400 mg Heparin Sodium (Porcine) (Heparin -) 5,000 unit SQ BID [facility] Last Admin: 09/21/17 09:32 Dose: 5,000 unit Isosorbide Mononitrate (Imdur -) 60 mg PO DAILY [facility] Last Admin: 09/21/17 09:34 Dose: 60 mg Losartan Potassium (Cozaar -) 25 mg PO DAILY [facility] Last Admin: 09/21/17 09:35 Dose: 25 mg Methylprednisolone Sodium Succinate (Solu-Medrol -) 40 mg IVPB Q8H-IV [facility] Oxycodone HCl (Roxicodone -) 5 mg PO Q6H PRN PRN Reason: PAIN LEVEL 1-5 Last Admin: 09/21/17 13:12 Dose: 5 mg Pantoprazole Sodium (Protonix -) 40 mg PO DAILY [facility] Last Admin: 09/21/17 09:34 Dose: 40 mg - Objective Vital Signs: Vital Signs Temperature 98.3 F 09/21/17 10:00 Pulse Rate 67 09/21/17 10:00 Respiratory Rate 18 09/21/17 10:00 Blood Pressure 135/74 09/21/17 10:00 O2 Sat by Pulse Oximetry (%) 96 09/21/17 09:00 Constitutional: Yes: No Distress, Calm Cardiovascular: Yes: Regular Rate and Rhythm, S1, S2 Respiratory: Yes: Regular, Rhonchi, Wheezes (scaterred) Gastrointestinal: Yes: Normal Bowel Sounds, Soft. No: Tenderness Edema: No Labs: CBC, BMP 09/21/17 07:40 09/21/17 07:40 Problem List - Problems (1) COPD with acute exacerbation Code(s): J44.1 - CHRONIC OBSTRUCTIVE PULMONARY DISEASE W (ACUTE) EXACERBATION (2) Acute on chronic respiratory failure with hypoxia and hypercapnia Code(s): J96.21 - ACUTE AND CHRONIC RESPIRATORY FAILURE WITH HYPOXIA; J96.22 - ACUTE AND CHRONIC RESPIRATORY FAILURE WITH HYPERCAPNIA (3) CAD (coronary artery disease) Code(s): I25.10 - ATHSCL HEART DISEASE OF [place] CORONARY ARTERY W/O ANG PCTRS Qualifiers: Coronary Disease-Associated Artery/Lesion type: [place] artery [place] vs. transplanted heart: [place] heart Associated angina: without angina Qualified Code(s): I25.10 - Atherosclerotic heart disease of [place] coronary artery without angina pectoris (4) HTN (hypertension) Code(s): I10 - ESSENTIAL (PRIMARY) HYPERTENSION Qualifiers: Hypertension type: essential hypertension Qualified Code(s): I10 - Essential (primary) hypertension (5) History of left above knee amputation Code(s): Z89.612 - ACQUIRED ABSENCE OF LEFT LEG ABOVE KNEE (6) PVD (peripheral vascular disease) Code(s): I73.9 - PERIPHERAL VASCULAR DISEASE, UNSPECIFIED (7) Hypercholesterolemia Code(s): E78.00 - PURE HYPERCHOLESTEROLEMIA, UNSPECIFIED (8) CHF (congestive heart failure) Code(s): I50.9 - HEART FAILURE, UNSPECIFIED Qualifiers: Heart failure type: diastolic (9) Prerenal azotemia Code(s): R79.89 - OTHER SPECIFIED ABNORMAL FINDINGS OF BLOOD CHEMISTRY Assessment/Plan Serial CE- negative IV Solu-Medrol -to mat Pulmonary Consult and f/u are appreciated DVT proph I encouraged pt to dring more water. AM Labs
[2017-09-21] MEDS ORDERED: ALBUTEROL SO4 2.5/IPRATROPIUM 0.5 INH SOL 3 ML VIAL.NEB. NEB PRN (14:42)
[2017-09-21] MEDS: ATORVASTATIN CA 10 MG TABLET (FP) PO SCH (21:40)
[2017-09-22] MEDS: methylPREDNISolone NA SUCC 40 MG/1 ML VIAL IVPB SCH ×3 (01:21→17:10)
[2017-09-22] MEDS: GABAPENTIN 400 MG CAPSULE (FP) PO SCH ×3 (05:25→21:14)
--- NOTE | 2017-09-22 09:42 | PN ---
Progress Note, Physician History of Present Illness: Pt is coughing less, breathing better. Pt w/o SOB, CP, palpitation, abd pain. Pt is asking for portable concentrator- case was d/w SW - Current Medication List Current Medications: Active Medications Acetaminophen (Tylenol -) 325 mg PO Q6H PRN PRN Reason: PAIN LEVEL 1-5 Last Admin: 09/21/17 13:11 Dose: 325 mg Albuterol/Ipratropium (Duoneb -) 1 amp NEB RQID PRN PRN Reason: SHORT OF BREATH/WHEEZING Amlodipine Besylate (Norvasc -) 10 mg PO DAILY [facility] Last Admin: 09/21/17 09:34 Dose: 10 mg Aspirin (Ecotrin -) 81 mg PO DAILY [facility] Last Admin: 09/21/17 09:33 Dose: 81 mg Atorvastatin Calcium (Lipitor -) 10 mg PO HS [facility] Last Admin: 09/21/17 21:40 Dose: 10 mg Bupropion HCl (Wellbutrin Xl -) 150 mg PO DAILY [facility] Last Admin: 09/21/17 09:33 Dose: 150 mg Carvedilol (Coreg -) 6.25 mg PO BID [facility] Last Admin: 09/21/17 21:40 Dose: 6.25 mg Clopidogrel Bisulfate (Plavix -) 75 mg PO DAILY [facility] Last Admin: 09/21/17 09:35 Dose: 75 mg Gabapentin (Neurontin -) 400 mg PO TID [facility] Last Admin: 09/22/17 05:25 Dose: 400 mg Heparin Sodium (Porcine) (Heparin -) 5,000 unit SQ BID [facility] Last Admin: 09/21/17 21:40 Dose: 5,000 unit Isosorbide Mononitrate (Imdur -) 60 mg PO DAILY [facility] Last Admin: 09/21/17 09:34 Dose: 60 mg Losartan Potassium (Cozaar -) 25 mg PO DAILY [facility] Last Admin: 09/21/17 09:35 Dose: 25 mg Methylprednisolone Sodium Succinate (Solu-Medrol -) 40 mg IVPB Q8H-IV [facility] Last Admin: 09/22/17 01:21 Dose: 40 mg Oxycodone HCl (Roxicodone -) 5 mg PO Q6H PRN PRN Reason: PAIN LEVEL 1-5 Last Admin: 09/21/17 13:12 Dose: 5 mg Pantoprazole Sodium (Protonix -) 40 mg PO DAILY [facility] Last Admin: 09/21/17 09:34 Dose: 40 mg - Objective Vital Signs: Vital Signs Temperature 98.3 F 09/22/17 05:00 Pulse Rate 61 09/22/17 05:00 Respiratory Rate 18 09/22/17 05:00 Blood Pressure 130/60 09/22/17 05:00 O2 Sat by Pulse Oximetry (%) 96 09/21/17 20:01 Constitutional: Yes: No Distress, Calm Cardiovascular: Yes: Regular Rate and Rhythm, S1, S2 Respiratory: Yes: Regular, Rhonchi Gastrointestinal: Yes: Normal Bowel Sounds, Soft. No: Tenderness Edema: No Neurological: Yes: Alert, Oriented Labs: CBC, BMP 09/21/17 07:40 09/21/17 07:40 Problem List - Problems (1) COPD with acute exacerbation Code(s): J44.1 - CHRONIC OBSTRUCTIVE PULMONARY DISEASE W (ACUTE) EXACERBATION (2) Acute on chronic respiratory failure with hypoxia and hypercapnia Code(s): J96.21 - ACUTE AND CHRONIC RESPIRATORY FAILURE WITH HYPOXIA; J96.22 - ACUTE AND CHRONIC RESPIRATORY FAILURE WITH HYPERCAPNIA (3) CAD (coronary artery disease) Code(s): I25.10 - ATHSCL HEART DISEASE OF [place] CORONARY ARTERY W/O ANG PCTRS Qualifiers: Coronary Disease-Associated Artery/Lesion type: [place] artery [place] vs. transplanted heart: [place] heart Associated angina: without angina Qualified Code(s): I25.10 - Atherosclerotic heart disease of [place] coronary artery without angina pectoris (4) HTN (hypertension) Code(s): I10 - ESSENTIAL (PRIMARY) HYPERTENSION Qualifiers: Hypertension type: essential hypertension Qualified Code(s): I10 - Essential (primary) hypertension (5) History of left above knee amputation Code(s): Z89.612 - ACQUIRED ABSENCE OF LEFT LEG ABOVE KNEE (6) PVD (peripheral vascular disease) Code(s): I73.9 - PERIPHERAL VASCULAR DISEASE, UNSPECIFIED (7) Hypercholesterolemia Code(s): E78.00 - PURE HYPERCHOLESTEROLEMIA, UNSPECIFIED (8) CHF (congestive heart failure) Code(s): I50.9 - HEART FAILURE, UNSPECIFIED Qualifiers: Heart failure type: diastolic (9) Prerenal azotemia Code(s): R79.89 - OTHER SPECIFIED ABNORMAL FINDINGS OF BLOOD CHEMISTRY Assessment/Plan Serial CE- negative IV Solu-Medrol -to mat Pulmonary Consult and f/u are appreciated DVT proph I encouraged pt to dring more water. AM Labs to f/u on kidney function
--- NOTE | 2017-09-22 10:35 | PN ---
Progress Note (short form) - Note Progress Note: Resting in NAD. Breathing is improving. No acute events overnight. Intake & Output 09/19/17 09/20/17 09/21/17 09/22/17 23:59 23:59 23:59 23:59 Intake Total 800 980 Output Total 300 Balance 800 680 Weight 93 lb 8 oz 93 lb Last Vital Signs Temp Pulse Resp BP Pulse Ox 98.3 F 61 18 130/60 96 09/22/17 05:00 09/22/17 05:00 09/22/17 05:00 09/22/17 05:00 09/21/17 20:01 Active Medications Acetaminophen (Tylenol -) 325 mg PO Q6H PRN PRN Reason: PAIN LEVEL 1-5 Last Admin: 09/21/17 13:11 Dose: 325 mg Albuterol/Ipratropium (Duoneb -) 1 amp NEB RQID PRN PRN Reason: SHORT OF BREATH/WHEEZING Amlodipine Besylate (Norvasc -) 10 mg PO DAILY [facility] Last Admin: 09/21/17 09:34 Dose: 10 mg Aspirin (Ecotrin -) 81 mg PO DAILY [facility] Last Admin: 09/21/17 09:33 Dose: 81 mg Atorvastatin Calcium (Lipitor -) 10 mg PO HS [facility] Last Admin: 09/21/17 21:40 Dose: 10 mg Bupropion HCl (Wellbutrin Xl -) 150 mg PO DAILY [facility] Last Admin: 09/21/17 09:33 Dose: 150 mg Carvedilol (Coreg -) 6.25 mg PO BID [facility] Last Admin: 09/21/17 21:40 Dose: 6.25 mg Clopidogrel Bisulfate (Plavix -) 75 mg PO DAILY [facility] Last Admin: 09/21/17 09:35 Dose: 75 mg Gabapentin (Neurontin -) 400 mg PO TID [facility] Last Admin: 09/22/17 05:25 Dose: 400 mg Heparin Sodium (Porcine) (Heparin -) 5,000 unit SQ BID [facility] Last Admin: 09/21/17 21:40 Dose: 5,000 unit Isosorbide Mononitrate (Imdur -) 60 mg PO DAILY [facility] Last Admin: 09/21/17 09:34 Dose: 60 mg Losartan Potassium (Cozaar -) 25 mg PO DAILY [facility] Last Admin: 09/21/17 09:35 Dose: 25 mg Methylprednisolone Sodium Succinate (Solu-Medrol -) 40 mg IVPB Q8H-IV [facility] Last Admin: 09/22/17 01:21 Dose: 40 mg Oxycodone HCl (Roxicodone -) 5 mg PO Q6H PRN PRN Reason: PAIN LEVEL 1-5 Last Admin: 09/21/17 13:12 Dose: 5 mg Pantoprazole Sodium (Protonix -) 40 mg PO DAILY [facility] Last Admin: 09/21/17 09:34 Dose: 40 mg Gen: NAD at rest Heart: RRR Lung: distant breath sounds, no wheezes Abd: soft, nontender Ext: + L AKA Problem List - Problems (1) COPD with acute exacerbation Code(s): J44.1 - CHRONIC OBSTRUCTIVE PULMONARY DISEASE W (ACUTE) EXACERBATION (2) Acute on chronic respiratory failure with hypoxia and hypercapnia Code(s): J96.21 - ACUTE AND CHRONIC RESPIRATORY FAILURE WITH HYPOXIA; J96.22 - ACUTE AND CHRONIC RESPIRATORY FAILURE WITH HYPERCAPNIA (3) CHF (congestive heart failure) Code(s): I50.9 - HEART FAILURE, UNSPECIFIED Qualifiers: Heart failure type: diastolic (4) CAD (coronary artery disease) Code(s): I25.10 - ATHSCL HEART DISEASE OF [place] CORONARY ARTERY W/O ANG PCTRS Qualifiers: Coronary Disease-Associated Artery/Lesion type: [place] artery [place] vs. transplanted heart: [place] heart Associated angina: without angina Qualified Code(s): I25.10 - Atherosclerotic heart disease of [place] coronary artery without angina pectoris (5) HTN (hypertension) Code(s): I10 - ESSENTIAL (PRIMARY) HYPERTENSION Qualifiers: Hypertension type: essential hypertension Qualified Code(s): I10 - Essential (primary) hypertension (6) Hypercholesterolemia Code(s): E78.00 - PURE HYPERCHOLESTEROLEMIA, UNSPECIFIED (7) PVD (peripheral vascular disease) Code(s): I73.9 - PERIPHERAL VASCULAR DISEASE, UNSPECIFIED (8) Systolic dysfunction Code(s): I51.9 - HEART DISEASE, UNSPECIFIED A/P Acute COPD Exacerbation Acute on Chronic Hypoxic and Hypercapneic Respiratory Failure LV Systolic Dysfunction Pulmonary HTN CAD PAD HTN Hyperlipidemia h/o L AKA Non-compliance with home O2 - Medrol at current dose, will likely change to Prednisone in the AM - inhaled bronchodilators standing and PRN - O2 to keep SpO2>90% - continue cardiac meds - DVT prophylaxis Dr Becerra
[2017-09-22] MEDS: ISOSORBIDE MONONITRATE 60 MG TAB.SR.24H (FP) PO SCH (11:44)
[2017-09-22] MEDS: CLOPIDOGREL BISULFATE 75 MG TABLET (FP) PO SCH (11:44)
[2017-09-22] MEDS: CARVEDILOL 6.25 MG TABLET (FP) PO SCH ×2 (11:44→21:14)
[2017-09-22] MEDS: LOSARTAN POTASSIUM 25 MG TABLET PO SCH (11:44)
[2017-09-22] MEDS: amLODIPine BESYLATE 10 MG TABLET (FP) PO SCH (11:44)
[2017-09-22] MEDS: HEPARIN NA (PORCINE) 5,000 UNITS/ML 1ML VIAL SQ SCH ×2 (11:45→21:14)
[2017-09-22] MEDS: PANTOPRAZOLE 40 MG TABLET (FP) PO SCH (11:45)
[2017-09-22] MEDS: ASPIRIN COATED 81 MG TABLET.EC PO SCH (11:45)
--- NOTE | 2017-09-22 17:15 | ECHO ---
Name: HILDA JAMA Exam:Adult Echocardiogram Study Date: 09/22/2017 10:31 AM Age: 82 yrs Reason For Study: CHF Height: 62 in Weight: 93 lb BSA: 1.4 m2 MMode/2D Measurements & Calculations IVSd: 0.95 cm Ao root diam: 2.1 cm LVIDd: 3.9 cm LA dimension: 3.4 cm LVIDs: 3.1 cm LVPWd: 0.76 cm EDV(Teich): 67.9 ml TAPSE: 1.9 cm ESV(Teich): 37.8 ml RV S Dewayne: 12.1 cm/sec Doppler Measurements & Calculations MV E max dewayne: 45.4 cm/sec Ao V2 max: 170.3 cm/sec MV A max dewayne: 121.9 cm/sec Ao max P.6 mmHg MV E/A: 0.37 Ao V2 mean: 101.2 cm/sec Ao mean P.9 mmHg Ao V2 VTI: 32.8 cm LV V1 max P.3 mmHg TR max dewayne: 220.5 cm/sec LV V1 mean P.6 mmHg TR max P.6 mmHg LV V1 max: 135.2 cm/sec LV V1 mean: 71.5 cm/sec LV V1 VTI: 23.9 cm PI end-d dewayne: 106.0 cm/sec Med Peak E' Edwayne: 2.7 cm/sec Med E/e': 16.6 Lat Peak E' Dewayne: 2.2 cm/sec Lat E/e': 20.3 Left Ventricle The left ventricle is normal in size. Left ventricular systolic function is moderately reduced. Eject ion Fraction = 40-45%. E/A reversal with TDI revealing impaired relaxation and elevated filling pressure (E/E' 16). There is lateral wall akinesis. There is basal posterolateral wall akinesis. There is proximal m id posteriolateral wall akinesis. There is inferior wall akinesis. There are regional wall motion abnorm alities as specified. Right Ventricle The right ventricle is not well visualized. Atria The left atrial size is normal. Right atrial size is normal. Mitral Valve The mitral valve is normal in structure and function. There is mild mitral regurgitation. Tricuspid Valve The tricuspid valve is normal in structure and function. There is mild to moderate tricuspid regurgit ation. Aortic Valve There is mild aortic sclerosis.;. Mild aortic regurgitation. Pulmonic Valve The pulmonic valve is not well visualized. Mild pulmonic valvular regurgitation. Great Vessels The aortic root is normal size. Pericardium/Pleura There is no pericardial effusion. There is a pleural effusion present. Interpretation Summary The left ventricle is normal in size. Left ventricular systolic function is moderately reduced. There are regional wall motion abnormalities as specified. Ejection Fraction = 40-45%. E/A reversal with TDI revealing impaired relaxation and elevated filling pressure (E/E' 16) The right ventricle is not well visualized. The left atrial size is normal. Right atrial size is normal. There is mild mitral regurgitation. There is mild to moderate tricuspid regurgitation. There is mild aortic sclerosis.; Mild aortic regurgitation. Mild pulmonic valvular regurgitation. There is no pericardial effusion. There is a pleural effusion present. Maxi Kaplan MD 09/22/2017 05:15 PM
[2017-09-22] MEDS: oxyCODONE HCL 5 MG TABLET PO PRN (20:49)
[2017-09-22] MEDS: ACETAMINOPHEN 325 MG TABLET (FP) PO PRN (20:50)
[2017-09-22] MEDS: ATORVASTATIN CA 10 MG TABLET (FP) PO SCH (21:14)
[2017-09-23] MEDS: methylPREDNISolone NA SUCC 40 MG/1 ML VIAL IVPB SCH ×3 (01:38→17:14)
[2017-09-23] MEDS: GABAPENTIN 400 MG CAPSULE (FP) PO SCH ×3 (06:38→22:11)
[2017-09-23] MEDS: CLOPIDOGREL BISULFATE 75 MG TABLET (FP) PO SCH (10:08)
[2017-09-23] MEDS: amLODIPine BESYLATE 10 MG TABLET (FP) PO SCH (10:09)
[2017-09-23] MEDS: CARVEDILOL 6.25 MG TABLET (FP) PO SCH ×2 (10:09→22:11)
[2017-09-23] MEDS: ASPIRIN COATED 81 MG TABLET.EC PO SCH (10:09)
[2017-09-23] MEDS: LOSARTAN POTASSIUM 25 MG TABLET PO SCH (10:09)
[2017-09-23] MEDS: ISOSORBIDE MONONITRATE 60 MG TAB.SR.24H (FP) PO SCH (10:09)
[2017-09-23] MEDS: PANTOPRAZOLE 40 MG TABLET (FP) PO SCH (10:09)
[2017-09-23] MEDS: HEPARIN NA (PORCINE) 5,000 UNITS/ML 1ML VIAL SQ SCH ×2 (10:10→22:11)
[2017-09-23 10:59] LABS: ANION GAP 3 (8-16); BLOOD UREA NITROGEN 34 mg/dL (7-18); CALCIUM 9.8 mg/dL (8.5-10.1); CHLORIDE 101 mmol/L (98-107); CO2 36 mmol/L (21-32); CREATININE 1.1 mg/dL (0.55-1.02); GLUCOSE,RANDOM 164 mg/dL (74-106); POTASSIUM 4.3 mmol/L (3.5-5.1); SODIUM 140 mmol/L (136-145)
[2017-09-23] MEDS: ALBUTEROL SO4 2.5/IPRATROPIUM 0.5 INH SOL 3 ML VIAL.NEB. NEB SCH ×3 (11:40→20:47)
--- NOTE | 2017-09-23 11:41 | PN ---
Progress Note (short form) - Note Progress Note: Resting in NAD. Breathing still not at baseline. Still with cough and wheezing. No acute events overnight. Intake & Output 09/20/17 09/21/17 09/22/17 09/23/17 23:59 23:59 23:59 23:59 Intake Total 800 980 650 250 Output Total 300 Balance 800 680 650 250 Weight 93 lb Last Vital Signs Temp Pulse Resp BP Pulse Ox 98.6 F 66 20 129/70 96 09/23/17 05:59 09/23/17 05:59 09/23/17 05:59 09/23/17 05:59 09/22/17 21:00 Active Medications Acetaminophen (Tylenol -) 325 mg PO Q6H PRN PRN Reason: PAIN LEVEL 1-5 Last Admin: 09/22/17 20:50 Dose: 325 mg Albuterol/Ipratropium (Duoneb -) 1 amp NEB RQID PRN PRN Reason: SHORT OF BREATH/WHEEZING Amlodipine Besylate (Norvasc -) 10 mg PO DAILY [facility] Last Admin: 09/23/17 10:09 Dose: 10 mg Aspirin (Ecotrin -) 81 mg PO DAILY [facility] Last Admin: 09/23/17 10:09 Dose: 81 mg Atorvastatin Calcium (Lipitor -) 10 mg PO HS [facility] Last Admin: 09/22/17 21:14 Dose: 10 mg Bupropion HCl (Wellbutrin Xl -) 150 mg PO DAILY [facility] Last Admin: 09/23/17 10:08 Dose: 150 mg Carvedilol (Coreg -) 6.25 mg PO BID [facility] Last Admin: 09/23/17 10:09 Dose: 6.25 mg Clopidogrel Bisulfate (Plavix -) 75 mg PO DAILY [facility] Last Admin: 09/23/17 10:08 Dose: 75 mg Gabapentin (Neurontin -) 400 mg PO TID [facility] Last Admin: 09/23/17 06:38 Dose: 400 mg Heparin Sodium (Porcine) (Heparin -) 5,000 unit SQ BID [facility] Last Admin: 09/23/17 10:10 Dose: 5,000 unit Isosorbide Mononitrate (Imdur -) 60 mg PO DAILY [facility] Last Admin: 09/23/17 10:09 Dose: 60 mg Losartan Potassium (Cozaar -) 25 mg PO DAILY [facility] Last Admin: 09/23/17 10:09 Dose: 25 mg Methylprednisolone Sodium Succinate (Solu-Medrol -) 40 mg IVPB Q8H-IV [facility] Last Admin: 09/23/17 10:10 Dose: 40 mg Oxycodone HCl (Roxicodone -) 5 mg PO Q6H PRN PRN Reason: PAIN LEVEL 1-5 Last Admin: 09/22/17 20:49 Dose: 5 mg Pantoprazole Sodium (Protonix -) 40 mg PO DAILY [facility] Last Admin: 09/23/17 10:09 Dose: 40 mg Gen: NAD at rest Heart: RRR Lung: distant breath sounds, no wheezes Abd: soft, nontender Ext: + L AKA Laboratory Results - last 24 hr 09/23/17 09:41 Sodium 140 Potassium 4.3 Chloride 101 Carbon Dioxide 36 H Anion Gap 3 L BUN 34 H Creatinine 1.1 H Creat Clearance w eGFR 47.43 Random Glucose 164 H Calcium 9.8 Problem List - Problems (1) COPD with acute exacerbation Code(s): J44.1 - CHRONIC OBSTRUCTIVE PULMONARY DISEASE W (ACUTE) EXACERBATION (2) Acute on chronic respiratory failure with hypoxia and hypercapnia Code(s): J96.21 - ACUTE AND CHRONIC RESPIRATORY FAILURE WITH HYPOXIA; J96.22 - ACUTE AND CHRONIC RESPIRATORY FAILURE WITH HYPERCAPNIA (3) CHF (congestive heart failure) Code(s): I50.9 - HEART FAILURE, UNSPECIFIED Qualifiers: Heart failure type: diastolic (4) CAD (coronary artery disease) Code(s): I25.10 - ATHSCL HEART DISEASE OF [place] CORONARY ARTERY W/O ANG PCTRS Qualifiers: Coronary Disease-Associated Artery/Lesion type: [place] artery [place] vs. transplanted heart: [place] heart Associated angina: without angina Qualified Code(s): I25.10 - Atherosclerotic heart disease of [place] coronary artery without angina pectoris (5) HTN (hypertension) Code(s): I10 - ESSENTIAL (PRIMARY) HYPERTENSION Qualifiers: Hypertension type: essential hypertension Qualified Code(s): I10 - Essential (primary) hypertension (6) Hypercholesterolemia Code(s): E78.00 - PURE HYPERCHOLESTEROLEMIA, UNSPECIFIED (7) PVD (peripheral vascular disease) Code(s): I73.9 - PERIPHERAL VASCULAR DISEASE, UNSPECIFIED (8) Systolic dysfunction Code(s): I51.9 - HEART DISEASE, UNSPECIFIED A/P Acute COPD Exacerbation Acute on Chronic Hypoxic and Hypercapneic Respiratory Failure LV Systolic Dysfunction Pulmonary HTN CAD PAD HTN Hyperlipidemia h/o L AKA Non-compliance with home O2 - Medrol at current dose, will hopefully change to Prednisone in the AM - inhaled bronchodilators standing and PRN - O2 to keep SpO2>90% - continue cardiac meds - DVT prophylaxis Dr Becerra
--- NOTE | 2017-09-23 16:52 | PN ---
Progress Note, Physician History of Present Illness: Pt is coughing less, breathing better. Pt w/o SOB, CP, palpitation, abd pain. - Current Medication List Current Medications: Active Medications Acetaminophen (Tylenol -) 325 mg PO Q6H PRN PRN Reason: PAIN LEVEL 1-5 Last Admin: 09/22/17 20:50 Dose: 325 mg Albuterol/Ipratropium (Duoneb -) 1 amp NEB RQID [facility] Last Admin: 09/23/17 11:40 Dose: Not Given Amlodipine Besylate (Norvasc -) 10 mg PO DAILY [facility] Last Admin: 09/23/17 10:09 Dose: 10 mg Aspirin (Ecotrin -) 81 mg PO DAILY [facility] Last Admin: 09/23/17 10:09 Dose: 81 mg Atorvastatin Calcium (Lipitor -) 10 mg PO HS [facility] Last Admin: 09/22/17 21:14 Dose: 10 mg Bupropion HCl (Wellbutrin Xl -) 150 mg PO DAILY [facility] Last Admin: 09/23/17 10:08 Dose: 150 mg Carvedilol (Coreg -) 6.25 mg PO BID [facility] Last Admin: 09/23/17 10:09 Dose: 6.25 mg Clopidogrel Bisulfate (Plavix -) 75 mg PO DAILY [facility] Last Admin: 09/23/17 10:08 Dose: 75 mg Gabapentin (Neurontin -) 400 mg PO TID [facility] Last Admin: 09/23/17 13:01 Dose: 400 mg Heparin Sodium (Porcine) (Heparin -) 5,000 unit SQ BID [facility] Last Admin: 09/23/17 10:10 Dose: 5,000 unit Isosorbide Mononitrate (Imdur -) 60 mg PO DAILY [facility] Last Admin: 09/23/17 10:09 Dose: 60 mg Losartan Potassium (Cozaar -) 25 mg PO DAILY [facility] Last Admin: 09/23/17 10:09 Dose: 25 mg Methylprednisolone Sodium Succinate (Solu-Medrol -) 40 mg IVPB Q8H-IV [facility] Last Admin: 09/23/17 10:10 Dose: 40 mg Oxycodone HCl (Roxicodone -) 5 mg PO Q6H PRN PRN Reason: PAIN LEVEL 1-5 Last Admin: 09/22/17 20:49 Dose: 5 mg Pantoprazole Sodium (Protonix -) 40 mg PO DAILY [facility] Last Admin: 09/23/17 10:09 Dose: 40 mg - Objective Vital Signs: Vital Signs Temperature 98.6 F 09/23/17 05:59 Pulse Rate 66 09/23/17 05:59 Respiratory Rate 18 09/23/17 09:00 Blood Pressure 129/70 09/23/17 05:59 O2 Sat by Pulse Oximetry (%) 97 09/23/17 09:00 Constitutional: Yes: No Distress, Calm Cardiovascular: Yes: Regular Rate and Rhythm, S1, S2 Respiratory: Yes: Regular, Rhonchi (scaterred). No: Wheezes Gastrointestinal: Yes: Normal Bowel Sounds, Soft. No: Tenderness Edema: No Neurological: Yes: Alert, Oriented Labs: CBC, BMP 09/21/17 07:40 09/23/17 09:41 Problem List - Problems (1) COPD with acute exacerbation Code(s): J44.1 - CHRONIC OBSTRUCTIVE PULMONARY DISEASE W (ACUTE) EXACERBATION (2) Acute on chronic respiratory failure with hypoxia and hypercapnia Code(s): J96.21 - ACUTE AND CHRONIC RESPIRATORY FAILURE WITH HYPOXIA; J96.22 - ACUTE AND CHRONIC RESPIRATORY FAILURE WITH HYPERCAPNIA (3) CAD (coronary artery disease) Code(s): I25.10 - ATHSCL HEART DISEASE OF [place] CORONARY ARTERY W/O ANG PCTRS Qualifiers: Coronary Disease-Associated Artery/Lesion type: [place] artery [place] vs. transplanted heart: [place] heart Associated angina: without angina Qualified Code(s): I25.10 - Atherosclerotic heart disease of [place] coronary artery without angina pectoris (4) HTN (hypertension) Code(s): I10 - ESSENTIAL (PRIMARY) HYPERTENSION Qualifiers: Hypertension type: essential hypertension Qualified Code(s): I10 - Essential (primary) hypertension (5) History of left above knee amputation Code(s): Z89.612 - ACQUIRED ABSENCE OF LEFT LEG ABOVE KNEE (6) PVD (peripheral vascular disease) Code(s): I73.9 - PERIPHERAL VASCULAR DISEASE, UNSPECIFIED (7) Hypercholesterolemia Code(s): E78.00 - PURE HYPERCHOLESTEROLEMIA, UNSPECIFIED (8) CHF (congestive heart failure) Code(s): I50.9 - HEART FAILURE, UNSPECIFIED Qualifiers: Heart failure type: diastolic (9) Prerenal azotemia Code(s): R79.89 - OTHER SPECIFIED ABNORMAL FINDINGS OF BLOOD CHEMISTRY (10) Leukocytosis Assessment/Plan: probable secondary to steroids Code(s): D72.829 - ELEVATED [place] BLOOD CELL COUNT, UNSPECIFIED Assessment/Plan Serial CE- negative IV Solu-Medrol -to mat Pulmonary Consult and f/u are appreciated DVT proph I encouraged pt to dring more water. AM Labs to f/u on kidney function. Considering DC
[2017-09-23] MEDS: ATORVASTATIN CA 10 MG TABLET (FP) PO SCH (22:11)
[2017-09-24] MEDS: methylPREDNISolone NA SUCC 40 MG/1 ML VIAL IVPB SCH ×3 (03:07→17:05)
[2017-09-24] MEDS: GABAPENTIN 400 MG CAPSULE (FP) PO SCH ×2 (06:13→14:51)
[2017-09-24] MEDS: ALBUTEROL SO4 2.5/IPRATROPIUM 0.5 INH SOL 3 ML VIAL.NEB. NEB SCH ×3 (07:35→16:00)
[2017-09-24] MEDS: HEPARIN NA (PORCINE) 5,000 UNITS/ML 1ML VIAL SQ SCH (09:57)
[2017-09-24] MEDS: amLODIPine BESYLATE 10 MG TABLET (FP) PO SCH (09:58)
[2017-09-24] MEDS: ASPIRIN COATED 81 MG TABLET.EC PO SCH (09:58)
[2017-09-24] MEDS: CARVEDILOL 6.25 MG TABLET (FP) PO SCH (09:58)
[2017-09-24] MEDS: LOSARTAN POTASSIUM 25 MG TABLET PO SCH (09:58)
[2017-09-24] MEDS: PANTOPRAZOLE 40 MG TABLET (FP) PO SCH (09:58)
[2017-09-24] MEDS: CLOPIDOGREL BISULFATE 75 MG TABLET (FP) PO SCH (09:58)
[2017-09-24] MEDS: ISOSORBIDE MONONITRATE 60 MG TAB.SR.24H (FP) PO SCH (09:58)
[2017-09-24] MEDS: oxyCODONE HCL 5 MG TABLET PO PRN (10:38)
[2017-09-24] MEDS: ACETAMINOPHEN 325 MG TABLET (FP) PO PRN (10:39)
--- NOTE | 2017-09-24 10:41 | PN ---
Progress Note (short form) - Note Progress Note: Resting in NAD. Feels overall better and breathing very close to baseline. No acute events overnight. Intake & Output 09/21/17 09/22/17 09/23/17 09/24/17 23:59 23:59 23:59 23:59 Intake Total 613 786 0084 Output Total 300 Balance 878 800 4590 Weight 93 lb Last Vital Signs Temp Pulse Resp BP Pulse Ox 98.7 F 78 20 118/64 97 09/24/17 06:00 09/24/17 06:00 09/24/17 06:00 09/24/17 06:00 09/23/17 21:00 Active Medications Acetaminophen (Tylenol -) 325 mg PO Q6H PRN PRN Reason: PAIN LEVEL 1-5 Last Admin: 09/22/17 20:50 Dose: 325 mg Albuterol/Ipratropium (Duoneb -) 1 amp NEB RQID [facility] Last Admin: 09/24/17 07:35 Dose: Not Given Amlodipine Besylate (Norvasc -) 10 mg PO DAILY [facility] Last Admin: 09/24/17 09:58 Dose: 10 mg Aspirin (Ecotrin -) 81 mg PO DAILY [facility] Last Admin: 09/24/17 09:58 Dose: 81 mg Atorvastatin Calcium (Lipitor -) 10 mg PO HS [facility] Last Admin: 09/23/17 22:11 Dose: 10 mg Bupropion HCl (Wellbutrin Xl -) 150 mg PO DAILY [facility] Last Admin: 09/24/17 09:58 Dose: 150 mg Carvedilol (Coreg -) 6.25 mg PO BID [facility] Last Admin: 09/24/17 09:58 Dose: 6.25 mg Clopidogrel Bisulfate (Plavix -) 75 mg PO DAILY [facility] Last Admin: 09/24/17 09:58 Dose: 75 mg Gabapentin (Neurontin -) 400 mg PO TID [facility] Last Admin: 09/24/17 06:13 Dose: 400 mg Heparin Sodium (Porcine) (Heparin -) 5,000 unit SQ BID [facility] Last Admin: 09/24/17 09:57 Dose: 5,000 unit Isosorbide Mononitrate (Imdur -) 60 mg PO DAILY [facility] Last Admin: 09/24/17 09:58 Dose: 60 mg Losartan Potassium (Cozaar -) 25 mg PO DAILY [facility] Last Admin: 09/24/17 09:58 Dose: 25 mg Methylprednisolone Sodium Succinate (Solu-Medrol -) 40 mg IVPB Q8H-IV [facility] Last Admin: 09/24/17 09:56 Dose: 40 mg Oxycodone HCl (Roxicodone -) 5 mg PO Q6H PRN PRN Reason: PAIN LEVEL 1-5 Last Admin: 09/22/17 20:49 Dose: 5 mg Pantoprazole Sodium (Protonix -) 40 mg PO DAILY [facility] Last Admin: 09/24/17 09:58 Dose: 40 mg Gen: NAD at rest Heart: RRR Lung: distant breath sounds, no wheezes Abd: soft, nontender Ext: + L AKA Laboratory Results - last 24 hr 09/23/17 09:41 Sodium 140 Potassium 4.3 Chloride 101 Carbon Dioxide 36 H Anion Gap 3 L BUN 34 H Creatinine 1.1 H Creat Clearance w eGFR 47.43 Random Glucose 164 H Calcium 9.8 Problem List - Problems (1) COPD with acute exacerbation Code(s): J44.1 - CHRONIC OBSTRUCTIVE PULMONARY DISEASE W (ACUTE) EXACERBATION (2) Acute on chronic respiratory failure with hypoxia and hypercapnia Code(s): J96.21 - ACUTE AND CHRONIC RESPIRATORY FAILURE WITH HYPOXIA; J96.22 - ACUTE AND CHRONIC RESPIRATORY FAILURE WITH HYPERCAPNIA (3) CHF (congestive heart failure) Code(s): I50.9 - HEART FAILURE, UNSPECIFIED Qualifiers: Heart failure type: diastolic (4) CAD (coronary artery disease) Code(s): I25.10 - ATHSCL HEART DISEASE OF [place] CORONARY ARTERY W/O ANG PCTRS Qualifiers: Coronary Disease-Associated Artery/Lesion type: [place] artery [place] vs. transplanted heart: [place] heart Associated angina: without angina Qualified Code(s): I25.10 - Atherosclerotic heart disease of [place] coronary artery without angina pectoris (5) HTN (hypertension) Code(s): I10 - ESSENTIAL (PRIMARY) HYPERTENSION Qualifiers: Hypertension type: essential hypertension Qualified Code(s): I10 - Essential (primary) hypertension (6) Hypercholesterolemia Code(s): E78.00 - PURE HYPERCHOLESTEROLEMIA, UNSPECIFIED (7) PVD (peripheral vascular disease) Code(s): I73.9 - PERIPHERAL VASCULAR DISEASE, UNSPECIFIED (8) Systolic dysfunction Code(s): I51.9 - HEART DISEASE, UNSPECIFIED A/P Acute COPD Exacerbation Acute on Chronic Hypoxic and Hypercapneic Respiratory Failure LV Systolic Dysfunction Pulmonary HTN CAD PAD HTN Hyperlipidemia h/o L AKA Non-compliance with home O2 - Prednisone: 40mg OD for 5 days in total - Can D/C: on LAMA/LABA/ICS combination such as Trelegy daily. If this is the choice: NO Atrovent PRN, only provide Albuterol 1 unit Q4 PRN - Can follow in office in 4 to 6 weeks - No Pulmonary contraindication for D/C Dr Becerra
--- NOTE | 2017-09-24 13:49 | DS ---
Physical Examination Vital Signs: Vital Signs Temperature 98.7 F 09/24/17 06:00 Pulse Rate 78 09/24/17 06:00 Respiratory Rate 20 09/24/17 06:00 Blood Pressure 118/64 09/24/17 06:00 O2 Sat by Pulse Oximetry (%) 97 09/23/17 21:00 Findings/Remarks: Pt w/o SOB, CP, palp, abd pain. Pt 's cough is better, minimal sputum. Pt "small" condenser request was address after situation was reviewed with SW and CM; pt was brought uptodate. Time spent for managing pt's care: over 45 minutes. Constitutional: Yes: No Distress, Calm Cardiovascular: Yes: Regular Rate and Rhythm, S1, S2 Respiratory: Yes: Regular, Other (coarse BS) Gastrointestinal: Yes: Normal Bowel Sounds, Soft. No: Tenderness Edema: No Neurological: Yes: Alert, Oriented Labs: CBC, BMP 09/21/17 07:40 09/23/17 09:41 Discharge Summary Reason For Visit: CHRONIC OBSTRUCTIVE PULMONARY DISEASE Current Active Problems CHF (congestive heart failure) (Acute) COPD with acute exacerbation (Acute) Hyperkalemia (Acute) Leukocytosis (Acute) Prerenal azotemia (Acute) Procedures: Principal: CXR Hospital Course: Pt came to ER c/o SOB for few days, found to be in acute COPD exacerbation. Pt was started on IV Solu-Medrol with improvement in pt's symptoms. Pt was seen in consult by Pulmonary (Dr. Vazquez/ [facility]). Pt improved under current treatment. Pt to be DC'ed home with outpatient f/u. Condition: Improved - Instructions Disposition: HOME - Home Medications Comprehensive Discharge Medication List: Ambulatory Orders Amlodipine Besylate [Norvasc -] 10 mg PO DAILY 05/17/17 Aspirin [Ecotrin] 81 mg PO DAILY 05/17/17 Atorvastatin Ca [Lipitor] 10 mg PO HS 05/17/17 Bupropion HCl [Wellbutrin Xl -] 150 mg PO DAILY 05/17/17 Carvedilol [Coreg] 6.25 mg PO DAILY 05/17/17 Clopidogrel Bisulfate [Plavix] 75 mg PO DAILY 05/17/17 Gabapentin [Neurontin] 400 mg PO TID 05/17/17 Isosorbide Mononitrate [Imdur] 60 mg PO DAILY 05/17/17 Oxycodone HCl/Acetaminophen [Percocet 5-325 mg Tablet] 1 tab PO Q6H PRN Pantoprazole Sodium [Protonix] 40 mg PO DAILY 05/17/17 Albuterol Sulfate [Proair Hfa] 2 puff IH Q6H PRN 30 Days #1 hfa.aer.ad MDD 4 11/04 Ipratropium/Albuterol Sulfate [Combivent Respimat Inhal [place]] 4 gm IH BID #1 aer.w.adap 05/26/17 Prednisone See Taper PO DAILY #30 tablet 05/26/17 Valsartan [Diovan] 80 mg PO DAILY 90 Days #90 tablet 05/26/17
[2017-09-24 13:56] VITALS: PULSE 64
[2017-09-24 14:13] VITALS: BP 121/55; TEMP 98.8
== END 2017-09-24 19:30 | disposition home or self-care (01) | DRG 189 ==
LOC: JER 15:28 → JERBED 18:11 → J6S 20:57
PROVIDERS: ADMIT Internal Medicine; ATTEND Internal Medicine
DX: J96.21 Acute and chronic respiratory failure with hypoxia (principal); J44.1 Chronic obstructive pulmonary disease with (acute) exacerbation; I50.30 Unspecified diastolic (congestive) heart failure; J96.22 Acute and chronic respiratory failure with hypercapnia; I25.10 Atherosclerotic heart disease of native coronary artery without angina pectoris; E87.5 Hyperkalemia; D72.829 Elevated white blood cell count, unspecified; I73.9 Peripheral vascular disease, unspecified; I27.20 Pulmonary hypertension, unspecified; E78.5 Hyperlipidemia, unspecified; I11.0 Hypertensive heart disease with heart failure
CPT/HCPCS: 36415; 71045-TC-FY; 80048; 80053; 82550; 82553; 84484; 85025; 85027; 93005; 93010; 93306-TC; 94640; 99284-25; J1644; J7620